=== PATIENT | female | born 1945 | race Caucasian/White ===

== ENCOUNTER → 2017-09-03 13:12 | Outpatient (CLI) | payer MEDICARE, OTHER, SELFPAY ==
--- NOTE | 2017-09-03 | DI.US.S_ITS ---
ULTRASOUND OF LEFT BREAST: 09/03/2017 CLINICAL: Diffuse left breast pain. Comparison is made to exams dated: 03/16/2017 mammogram, 04/13/2015 mammogram, 09/27/2014 mammogram, and 03/27/2014 mammogram - [facility]. Color flow ultrasound of the left breast was performed. Stevens scale images of the real-time examination were reviewed. IMPRESSION: NEGATIVE There is no sonographic evidence of malignancy. There is no abnormality seen in the left breast to correspond with the area of clinical concern, however, clinical followup is recommended. A 1 year screening mammogram is recommended. This exam was interpreted at Station ID: [id number]. Electronically Signed By: Sivakumar [place]:09/03/2017 20:59:40 letter sent: Clinical Evaluation Ultrasound BI-RADS: 1 Negative
== END ==
PROVIDERS: Family Provider Physician Assistant; PCP Physician Assistant; Visit Provider Physician Assistant
DX: N64.4 Mastodynia (principal)
CPT/HCPCS: 76642

== ENCOUNTER → 2018-05-28 10:00 | Outpatient (CLI) | payer MEDICARE, OTHER, SELFPAY ==
--- NOTE | 2018-05-28 | DI.RAD.S_ITS ---
PROCEDURE: XR HIP W PEL IF DONE RT 2V INDICATIONS: PAIN IN RIGHT HIP TECHNIQUE: AP pelvis with lateral view(s) of the right hip(s). COMPARISON: None. FINDINGS: Bones: No fractures or dislocations. Pelvic ring appears intact. No suspicious bony lesions. Moderate degeneration with subchondral cystic changes. There is mild left hip degeneration. Lower lumbar spondylosis. Degenerative sclerosis at the sacroiliac joints and pubic symphysis. Prominent left-sided paraspinal osteophyte at the L5-S1 level. Soft tissues: The visualized bowel gas pattern is normal. No suspicious soft tissue calcifications. 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 Dictated by: Sky Solis M.D. on 05/28/2018 at 10:45 Approved by: Sky Solis M.D. on 05/28/2018 at 11:03
== END ==
PROVIDERS: PCP Physician Assistant; Visit Provider Physician Assistant
DX: M25.551 Pain in right hip (principal); M16.0 Bilateral primary osteoarthritis of hip
CPT/HCPCS: 73502

== ENCOUNTER 2018-06-24 08:15 | Outpatient (RCR) | payer MEDICARE, OTHER, SELFPAY ==
--- NOTE | 2018-05-06 15:50 | PT.OIE ---
Current Diagnoses Sciatica, right side (05/04/18) Muscle weakness (generalized) (05/04/18) Other symptoms and signs involving the musculoskeletal system (05/04/18) Other reduced mobility (05/04/18) Past Medical History (Last Updated 05/06/18 @ 15:50 by Michelle Angela PT) Diabetes (Acute) Provider Visit Care Team Role Provider Type Giselle Moreno PA-C Attending Provider Advanced Cloud Subject Matter Expert Primary Care Provider Specialty: Internal Medicine Address: [address] [place] [address], [facility] Email: Physical Therapy Initial Evaluation PT-OP-A Visit Information Start: 05/04/18 09:46 Freq: Status: Active Protocol: Document 05/04/18 09:49 LRN (Rec: 05/04/18 10:06 LRN [id number]) Out-Patient Physical Therapy Visit Information Visit Information Visit Type Initial Evaluation Visit Start Time 09:49 Visit Stop Time 10:37 Total Visit Minutes 48 Visit Number 1 Number of GARAGEMAN Visits 0 Evaluation Information Evaluation Date 05/04/18 PT-OP-B Current Condition Start: 05/04/18 09:46 Freq: Status: Active Protocol: Document 05/04/18 09:49 LRN (Rec: 05/04/18 10:06 LRN [id number]) Current Condition History of Current Condition Onset Date 02/22/2018 Current Complaints Deep R postrerio hip pain. R front lower leg pain most History of Current Condition Insidious onset of R Sciatic pain. Hip pain is with standing, the first few steps are shooting pain down the lateral side of the thigh into the front of the lower leg. Deep ache in the R posterior hip. She reports having trouble sleeping, taking GABAPENTIN that she finds helpful. She is waking ~2 times at night and is used to walking 3-4 miles/day, but now only walks a couple miles/day (with her dog). Prior Treatments and Tests None. Treatment Goals Patient/Caregiver Goals Goal is no pain. Prior Functional Status Baseline Function- ADL's Independent Baseline Function- Mobility Independent Baseline Function- Gait Walked 2-3 miles daily. 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 Getting up/down from floor. Functional Limitations- Mobility/Gait Initial step from prolonged positioning is painful. 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 Therapy/Recovery PT-OP-F Manual Assessment Start: 05/04/18 09:46 Freq: Status: Active Protocol: Document 05/04/18 09:49 LRN (Rec: 05/06/18 15:19 LRN [id number]) Manual Assessments Joint Mobility Assessment Joint Mobility Assessment R innominate posteriorly rotated with inflare. PT-OP-H Neuro Start: 05/04/18 09:46 Freq: Status: Active Protocol: Document 05/04/18 09:49 LRN (Rec: 05/06/18 15:19 LRN [id number]) Sensation Evaluation Gross Sensation Gross Sensation WNL Comments Summary Comments Pt reported the past couple days her toes have felt like they have cotton around them. Deep Tendon Reflex & Clonus Assessment Deep Tendon Reflex Bilateral Achilles Deep Tendon Reflex 1+ Diminished Bilateral Patellar Deep Tendon Reflex 2+ Normal PT-OP-J Posture/Palpation/Skin Start: 05/04/18 09:46 Freq: Status: Active Protocol: Document 05/04/18 09:49 LRN (Rec: 05/06/18 15:19 LRN [id number]) Posture Evaluation Comments Posture Comments Posture in standing: Forward head, R shoulder is high, Thoracic spine has mild C- curve with apex on right, L/S is tilted left, R Iliac crest is high, R SIJ is deep, flattened plantar arches, increased lordosis. Palpation Assessment Location R SIJ Palpation Location R SIJ Palpation Findings Tenderness Palpation Details Deep in standing. PT-OP-K Range of Motion Start: 05/04/18 09:46 Freq: Status: Active Protocol: Document 05/04/18 09:49 LRN (Rec: 05/06/18 15:19 LRN [id number]) Lumbar Spine Range of Motion Lumbar Spine Active Degrees Testing Position Standing Flexion 75 Extension 5 Lateral Flexion Left 15 Lateral Flexion Right 10 ROM Limitations Soft Tissue Tightness Hip Goniometric Range of Motion Hip Measured in Degrees Right Passive Testing Position Supine Straight Leg Raise 95 Extension 0 Internal Rotation 10 External Rotation 65 Left Passive Testing Position Supine Straight Leg Raise 90 Extension 0 Internal Rotation 25 External Rotation 85 PT-OP-L Special Tests Start: 05/04/18 09:46 Freq: Status: Active Protocol: Document 05/04/18 09:49 LRN (Rec: 05/06/18 15:19 LRN [id number]) Special Tests Hip Special Tests STACIA Test Results Postive Right Hip PT-OP-M Strength Start: 05/04/18 09:46 Freq: Status: Active Protocol: Document 05/04/18 09:49 LRN (Rec: 05/06/18 15:19 LRN [id number]) Hip Strength Hip Manual Muscle Testing Right Flexion (L2) 3+ Fair+ Extension (S1) 3 Fair Abduction 5 Normal Adduction 3 Fair External Rotation 3+ Fair+ Internal Rotation 5 Normal Left Flexion (L2) 5 Normal Extension (S1) 3 Fair Abduction 5 Normal Adduction 5 Normal External Rotation 5 Normal Internal Rotation 5 Normal PT-OP-Q Treatments Start: 05/04/18 09:46 Freq: Status: Active Protocol: Document 05/04/18 09:49 LRN (Rec: 05/06/18 15:48 LRN [id number]) Manual Therapy Treatment Joint Mobilizations SIJ Joint R SIJ Direction Correcting a posteriorly rotated R innominate Body Position Supine Comments Contract/Relax PT-OP-T Assessment and Plan Start: 05/04/18 09:46 Freq: Status: Active Protocol: Document 05/04/18 09:49 LRN (Rec: 05/04/18 10:06 LRN [id number]) Physical Therapy Assessment Rehab Potential Rehabilitation Potential Excellent Evaluation Complexity Number of Personal Factors/Comorbidities 1-2 Number of Body Systems Impaired 3 Clinical Presentation at Evaluation Evolving Impairments Impairments Activity Tolerance Functional Activities Functional Mobility Gait Pain Posture ROM Strength Other Concerns Age Related Concerns 65+ years old 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 Goals Four Impairment Asymmetry of pelvis and decreased R hip mobility interrupting sleep Public Policy Manager Goal (LTG) Pt will be able to sleep through the night without onset of R hip pain. LTG Duration 07/02/18 Three Impairment Decreased R hip strength [facility]ci Goal (LTG) Pt will be able to resume walking 2 miles/day for her diabetic health care. LTG Duration 07/02/18 Two Impairment R Sciatic Pain with first step rated 7/10 Short Term Goal (STG) Decrease pain onset with gait 50% STG Duration 06/01/18 Public Policy Manager Goal (LTG) Pt will be able to walk without pain onset. LTG Duration 07/02/18 One Impairment Lacks self care HEP Public Policy Manager Goal (LTG) Pt will be independent with a self care HEP. LTG Duration 07/02/18 Assessment Summary Assessment Pt presents with R sciatic pain due to obliquity of the R innominate in posterior rotation with inflare. She has a mechanical dysfunction of decreased R hip mobility and tolerance to positioning. She has a soft tissue dysfunction of the pelvis and LE's with decreased LE strength and postural changes of the pelvis and spine. The pt will benefit from skilled physical therapy to improve posture and sleep quality, improve hip mechanics, strength and mobility for ability to ambulate safely without pain and to resume her exercise program for her diabetic health. Physical Therapy Plan Frequency and Duration Plan of Care Start Date 05/04/18 Plan of Care End Date 07/02/18 Therapeutic Interventions Therapeutic Interventions Balance Training Coordination Training Gait Training Home Exercise Program Joint Mobilizations Manual Therapy Neuromuscular Re-education Patient/Caregiver Education Self-Care/Home Management Soft Tissue Mobilization Taping Therapeutic Activities Therapeutic Exercises Modalities Cold Pack/Ice Massage Electric Stimulation Hot Packs Ultrasound Next Visit Focus/Plan Next Note Type Treatment Note Next Visit Plan JMT to correct a posteriorly rotated R innominate if needed , start pelvic/core stabilization and progress HEP as appropriate. Modalities as needed for pain management.
--- NOTE | 2018-05-06 15:51 | PT.OPPOC ---
Current Diagnoses Sciatica, right side (05/04/18) Muscle weakness (generalized) (05/04/18) Other symptoms and signs involving the musculoskeletal system (05/04/18) Other reduced mobility (05/04/18) Provider Visit Care Team Role Provider Type Giselle Moreno PA-C Attending Provider Advanced Contracting Support Specialist Primary Care Provider Specialty: Internal Medicine Address: [address] [place] [address], [facility] Email: Plan Of Care PT-OP-T Assessment and Plan Start: 05/04/18 09:46 Freq: Status: Active Protocol: Document 05/04/18 09:49 LRN (Rec: 05/04/18 10:06 LRN [id number]) Physical Therapy Assessment Rehab Potential Rehabilitation Potential Excellent Evaluation Complexity Number of Personal Factors/Comorbidities 1-2 Number of Body Systems Impaired 3 Clinical Presentation at Evaluation Evolving Impairments Impairments Activity Tolerance Functional Activities Functional Mobility Gait Pain Posture ROM Strength Other Concerns Age Related Concerns 65+ years old 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 Goals Four Impairment Asymmetry of pelvis and decreased R hip mobility interrupting sleep Care Home Goal (LTG) Pt will be able to sleep through the night without onset of R hip pain. LTG Duration 07/02/18 Three Impairment Decreased R hip strength Towel Distributor Goal (LTG) Pt will be able to resume walking 2 miles/day for her diabetic health care. LTG Duration 07/02/18 Two Impairment R Sciatic Pain with first step rated 7/10 Short Term Goal (STG) Decrease pain onset with gait 50% STG Duration 06/01/18 Towel Distributor Goal (LTG) Pt will be able to walk without pain onset. LTG Duration 07/02/18 One Impairment Lacks self care HEP Care Home Goal (LTG) Pt will be independent with a self care HEP. LTG Duration 07/02/18 Assessment Summary Assessment Pt presents with R sciatic pain due to obliquity of the R innominate in posterior rotation with inflare. She has a mechanical dysfunction of decreased R hip mobility and tolerance to positioning. She has a soft tissue dysfunction of the pelvis and LE's with decreased LE strength and postural changes of the pelvis and spine. The pt will benefit from skilled physical therapy to improve posture and sleep quality, improve hip mechanics, strength and mobility for ability to ambulate safely without pain and to resume her exercise program for her diabetic health. Physical Therapy Plan Frequency and Duration Plan of Care Start Date 05/04/18 Plan of Care End Date 07/02/18 Therapeutic Interventions Therapeutic Interventions Balance Training Coordination Training Gait Training Home Exercise Program Joint Mobilizations Manual Therapy Neuromuscular Re-education Patient/Caregiver Education Self-Care/Home Management Soft Tissue Mobilization Taping Therapeutic Activities Therapeutic Exercises Modalities Cold Pack/Ice Massage Electric Stimulation Hot Packs Ultrasound Next Visit Focus/Plan Next Note Type Treatment Note Next Visit Plan JMT to correct a posteriorly rotated R innominate if needed , start pelvic/core stabilization and progress HEP as appropriate. Modalities as needed for pain management. Plan of Care Dates Plan of Care Start Date 05/04/18 Plan of Care End Date 07/02/18 Please Sign and Return: I have reviewed this Plan of Care and certify that the skilled therapy services above are required to meet the patient?s needs. Physician Signature Date Printed Name and Credentials Clinical Instructor Signature Printed Name and Credentials
--- NOTE | 2018-05-07 10:04 | PT.OTN ---
Current Diagnoses Sciatica, right side (05/07/18) Physical Therapy Treatment Note PT-OP-A Visit Information Start: 05/04/18 09:46 Freq: Status: Active Protocol: Document 05/07/18 09:02 LRN (Rec: 05/07/18 10:02 LRN [id number]) Out-Patient Physical Therapy Visit Information Visit Information Visit Type Initial Evaluation Visit Start Time 09:02 Visit Stop Time 09:49 Total Visit Minutes 47 Visit Number 1 Number of BLUEPRINT DUPLICATOR Visits 0 Evaluation Information Evaluation Date 05/04/18 PT-OP-B Current Condition Start: 05/04/18 09:46 Freq: Status: Active Protocol: Document 05/04/18 09:49 LRN (Rec: 05/04/18 10:06 LRN [id number]) Current Condition History of Current Condition Onset Date 02/22/2018 Current Complaints Deep R postrerio hip pain. R front lower leg pain most History of Current Condition Insidious onset of R Sciatic pain. Hip pain is with standing, the first few steps are shooting pain down the lateral side of the thigh into the front of the lower leg. Deep ache in the R posterior hip. She reports having trouble sleeping, taking GABAPENTIN that she finds helpful. She is waking ~2 times at night and is used to walking 3-4 miles/day, but now only walks a couple miles/day (with her dog). Prior Treatments and Tests None. Treatment Goals Patient/Caregiver Goals Goal is no pain. Prior Functional Status Baseline Function- ADL's Independent Baseline Function- Mobility Independent Baseline Function- Gait Walked 2-3 miles daily. 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 Getting up/down from floor. Functional Limitations- Mobility/Gait Initial step from prolonged positioning is painful. 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 Mentor better after last session, loosened up. Mentor something in the R lateral thigh with sit to stand just now. Can feel it, not inhibits. States she was able to sleep through the night once, but next day had a horrible night. PT-OP-F Manual Assessment Start: 05/04/18 09:46 Freq: Status: Active Protocol: Document 05/04/18 09:49 LRN (Rec: 05/06/18 15:19 LRN [id number]) Manual Assessments Joint Mobility Assessment Joint Mobility Assessment R innominate posteriorly rotated with inflare. PT-OP-H Neuro Start: 05/04/18 09:46 Freq: Status: Active Protocol: Document 05/04/18 09:49 LRN (Rec: 05/06/18 15:19 LRN [id number]) Sensation Evaluation Gross Sensation Gross Sensation WNL Comments Summary Comments Pt reported the past couple days her toes have felt like they have cotton around them. Deep Tendon Reflex & Clonus Assessment Deep Tendon Reflex Bilateral Achilles Deep Tendon Reflex 1+ Diminished Bilateral Patellar Deep Tendon Reflex 2+ Normal PT-OP-J Posture/Palpation/Skin Start: 05/04/18 09:46 Freq: Status: Active Protocol: Document 05/04/18 09:49 LRN (Rec: 05/06/18 15:19 LRN [id number]) Posture Evaluation Comments Posture Comments Posture in standing: Forward head, R shoulder is high, Thoracic spine has mild C- curve with apex on right, L/S is tilted left, R Iliac crest is high, R SIJ is deep, flattened plantar arches, increased lordosis. Palpation Assessment Location R SIJ Palpation Location R SIJ Palpation Findings Tenderness Palpation Details Deep in standing. PT-OP-K Range of Motion Start: 05/04/18 09:46 Freq: Status: Active Protocol: Document 05/04/18 09:49 LRN (Rec: 05/06/18 15:19 LRN [id number]) Lumbar Spine Range of Motion Lumbar Spine Active Degrees Testing Position Standing Flexion 75 Extension 5 Lateral Flexion Left 15 Lateral Flexion Right 10 ROM Limitations Soft Tissue Tightness Hip Goniometric Range of Motion Hip Measured in Degrees Right Passive Testing Position Supine Straight Leg Raise 95 Extension 0 Internal Rotation 10 External Rotation 65 Left Passive Testing Position Supine Straight Leg Raise 90 Extension 0 Internal Rotation 25 External Rotation 85 PT-OP-L Special Tests Start: 05/04/18 09:46 Freq: Status: Active Protocol: Document 05/04/18 09:49 LRN (Rec: 05/06/18 15:19 LRN [id number]) Special Tests Hip Special Tests STACIA Test Results Postive Right Hip PT-OP-M Strength Start: 05/04/18 09:46 Freq: Status: Active Protocol: Document 05/04/18 09:49 LRN (Rec: 05/06/18 15:19 LRN [id number]) Hip Strength Hip Manual Muscle Testing Right Flexion (L2) 3+ Fair+ Extension (S1) 3 Fair Abduction 5 Normal Adduction 3 Fair External Rotation 3+ Fair+ Internal Rotation 5 Normal Left Flexion (L2) 5 Normal Extension (S1) 3 Fair Abduction 5 Normal Adduction 5 Normal External Rotation 5 Normal Internal Rotation 5 Normal PT-OP-Q Treatments Start: 05/04/18 09:46 Freq: Status: Active Protocol: Document 05/07/18 09:02 LRN (Rec: 05/07/18 10:02 LRN [id number]) Therapeutic Exercises Supine Exercises Fig 4 Stretch Side right Reps/Minutes 3' BKFO with T-Band Side bilateral Resistance Lev 2 T-Band Reps/Minutes 20 x Comments Making sure symmetrical movement Bridges Side bilateral Reps/Minutes 15x, holding 5 sec Sitting Exercises Ankle EV stretch Side right Reps/Minutes 3' Manual Therapy Treatment Soft Tissue Mobilization R lateral hip Mobilization Type Cross-Friction Trigger Point Release Intensity/Depth Moderate Body Position Sidelying Comments Good release of active trigger points. Self-Care/Home Management Treatment Education Patient Education Body Mechanics Home Exercise Program Activities Self-Care/Home Management Activities Proper body mechanics as related to her working. HEP: Bridging, BKFO w/T-Band, Ankle EV stretch, Fig 4 stretch PT-OP-T Assessment and Plan Start: 05/04/18 09:46 Freq: Status: Active Protocol: Document 05/07/18 09:02 LRN (Rec: 05/07/18 10:02 LRN [id number]) Physical Therapy Assessment Progress Towards Goals Progress Towards Goals Progressing Toward Goals Progress Comments Goal #1: Progressing HEP. Goal #2: No change with walking R hip pain. Goal #3: Pt able to sleep through the night x 1. Assessment Summary Assessment Decreased R sciatic pain. No obliquity of the R innominate present today. She has a mechanical dysfunction of decreased R hip mobility and tolerance to positioning. Decr in soft tissue dysfunction of the lateral hip after STM. Further stabilization/strengthening of the pelvis and LE's is needed due to L. long leg length discrepancy. Physical Therapy Plan Frequency and Duration Frequency of Treatment 2x/Week Plan of Care Start Date 05/04/18 Plan of Care End Date 07/02/18 Next Visit Focus/Plan Next Note Type Treatment Note Next Visit Plan JMT to correct a posteriorly rotated R innominate if needed , start pelvic/core stabilization and progress HEP as appropriate. STM, Modalities as needed for pain management.
--- NOTE | 2018-05-10 13:57 | PT.OTN ---
Current Diagnoses Sciatica, right side (05/10/18) Physical Therapy Treatment Note PT-OP-A Visit Information Start: 05/04/18 09:46 Freq: Status: Active Protocol: Document 05/10/18 12:53 LRN (Rec: 05/10/18 13:56 LRN [id number]) Out-Patient Physical Therapy Visit Information Visit Information Visit Type Treatment Note Visit Start Time 12:53 Visit Stop Time 13:38 Total Visit Minutes 45 Visit Number 3 Number of SPA ASSISTANT MANAGER Visits 0 Evaluation Information Evaluation Date 05/04/18 PT-OP-B Current Condition Start: 05/04/18 09:46 Freq: Status: Active Protocol: Document 05/04/18 09:49 LRN (Rec: 05/04/18 10:06 LRN [id number]) Current Condition History of Current Condition Onset Date 02/22/2018 Current Complaints Deep R postrerio hip pain. R front lower leg pain most History of Current Condition Insidious onset of R Sciatic pain. Hip pain is with standing, the first few steps are shooting pain down the lateral side of the thigh into the front of the lower leg. Deep ache in the R posterior hip. She reports having trouble sleeping, taking GABAPENTIN that she finds helpful. She is waking ~2 times at night and is used to walking 3-4 miles/day, but now only walks a couple miles/day (with her dog). Prior Treatments and Tests None. Treatment Goals Patient/Caregiver Goals Goal is no pain. Prior Functional Status Baseline Function- ADL's Independent Baseline Function- Mobility Independent Baseline Function- Gait Walked 2-3 miles daily. 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 Getting up/down from floor. Functional Limitations- Mobility/Gait Initial step from prolonged positioning is painful. 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 Therapy/Recovery PT-OP-C Subjective Start: 05/04/18 09:46 Freq: Status: Active Protocol: Document 05/10/18 12:53 LRN (Rec: 05/10/18 13:56 LRN [id number]) OP-PT Subjective Patient Comments Patient Comments 2 nights of good sleep, slept through the night. R Hip pain is no longer sharp, it aches and feels like a bruise. Today aches, no pain. Patient Reported Progress Improving PT-OP-F Manual Assessment Start: 05/04/18 09:46 Freq: Status: Active Protocol: Document 05/04/18 09:49 LRN (Rec: 05/06/18 15:19 LRN [id number]) Manual Assessments Joint Mobility Assessment Joint Mobility Assessment R innominate posteriorly rotated with inflare. PT-OP-H Neuro Start: 05/04/18 09:46 Freq: Status: Active Protocol: Document 05/04/18 09:49 LRN (Rec: 05/06/18 15:19 LRN [id number]) Sensation Evaluation Gross Sensation Gross Sensation WNL Comments Summary Comments Pt reported the past couple days her toes have felt like they have cotton around them. Deep Tendon Reflex & Clonus Assessment Deep Tendon Reflex Bilateral Achilles Deep Tendon Reflex 1+ Diminished Bilateral Patellar Deep Tendon Reflex 2+ Normal PT-OP-J Posture/Palpation/Skin Start: 05/04/18 09:46 Freq: Status: Active Protocol: Document 05/04/18 09:49 LRN (Rec: 05/06/18 15:19 LRN [id number]) Posture Evaluation Comments Posture Comments Posture in standing: Forward head, R shoulder is high, Thoracic spine has mild C- curve with apex on right, L/S is tilted left, R Iliac crest is high, R SIJ is deep, flattened plantar arches, increased lordosis. Palpation Assessment Location R SIJ Palpation Location R SIJ Palpation Findings Tenderness Palpation Details Deep in standing. PT-OP-K Range of Motion Start: 05/04/18 09:46 Freq: Status: Active Protocol: Document 05/04/18 09:49 LRN (Rec: 05/06/18 15:19 LRN [id number]) Lumbar Spine Range of Motion Lumbar Spine Active Degrees Testing Position Standing Flexion 75 Extension 5 Lateral Flexion Left 15 Lateral Flexion Right 10 ROM Limitations Soft Tissue Tightness Hip Goniometric Range of Motion Hip Measured in Degrees Right Passive Testing Position Supine Straight Leg Raise 95 Extension 0 Internal Rotation 10 External Rotation 65 Left Passive Testing Position Supine Straight Leg Raise 90 Extension 0 Internal Rotation 25 External Rotation 85 PT-OP-L Special Tests Start: 05/04/18 09:46 Freq: Status: Active Protocol: Document 05/04/18 09:49 LRN (Rec: 05/06/18 15:19 LRN [id number]) Special Tests Hip Special Tests STACIA Test Results Postive Right Hip PT-OP-M Strength Start: 05/04/18 09:46 Freq: Status: Active Protocol: Document 05/04/18 09:49 LRN (Rec: 05/06/18 15:19 LRN [id number]) Hip Strength Hip Manual Muscle Testing Right Flexion (L2) 3+ Fair+ Extension (S1) 3 Fair Abduction 5 Normal Adduction 3 Fair External Rotation 3+ Fair+ Internal Rotation 5 Normal Left Flexion (L2) 5 Normal Extension (S1) 3 Fair Abduction 5 Normal Adduction 5 Normal External Rotation 5 Normal Internal Rotation 5 Normal PT-OP-Q Treatments Start: 05/04/18 09:46 Freq: Status: Active Protocol: Document 05/10/18 12:53 LRN (Rec: 05/10/18 13:56 LRN [id number]) Therapeutic Exercises Supine Exercises DLS Supine Exercise Name Neutral spine training, Alternate arm lifts, Paul arm lifts, paul heel slides Reps/Minutes 10' Comments 3-10 reps each after training Fig 4 Stretch Supine Exercise Name Stretch f/b active stretch Side bilateral Reps/Minutes 3' BKFO with T-Band Side bilateral Resistance Lev 2 T-Band Reps/Minutes 30 x Comments Folded towel x1 under R foot. Making sure symmetrical movement. Bridges Side bilateral Reps/Minutes 15x2 Comments Folded towel x 1 under R foot Manual Therapy Treatment Soft Tissue Mobilization R lateral hip Body Location Gluteals, Piriformis Mobilization Type Cross-Friction Strumming Intensity/Depth Moderate Body Position Sidelying Comments Good release of active trigger points. Joint Mobilizations Sacral Direction Correcting a R rotated sacrum Body Position Prone Comments MFR Self-Care/Home Management Treatment Education Patient Education Home Exercise Program Activities Self-Care/Home Management Activities Issued an reviewed HEP: DLS alternate arm lifts, bilateral arm lifts, paul Heel slides, bridging. Pt I/S to perform previously given ex's with DLS . PT-OP-T Assessment and Plan Start: 05/04/18 09:46 Freq: Status: Active Protocol: Document 05/10/18 12:53 LRN (Rec: 05/10/18 13:56 LRN [id number]) Physical Therapy Assessment Goals Four Impairment Asymmetry of pelvis and decreased R hip mobility interrupting sleep Marketing Performance Analyst Goal (LTG) Pt will be able to sleep through the night without onset of R hip pain. LTG Duration 07/02/18 (05/10/18: Goal Met for 2 days) Three Impairment Decreased R hip strength Alf Goal (LTG) Pt will be able to resume walking 2 miles/day for her diabetic health care. LTG Duration 07/02/18 Two Impairment R Sciatic Pain with first step rated 7/10 Short Term Goal (STG) Decrease pain onset with gait 50% STG Duration 06/01/18 Marketing Performance Analyst Goal (LTG) Pt will be able to walk without pain onset. LTG Duration 07/02/18 One Impairment Lacks self care HEP Alf Goal (LTG) Pt will be independent with a self care HEP. LTG Duration 07/02/18 (05/10/18: Progressing) Progress Towards Goals Progress Towards Goals Progressing Toward Goals Progress Comments Goal #1: Progressing HEP. Goal #2: Change with type of walking R hip pain. Pain on initial standing and the first few steps is not as painful, not sharp. Goal #3: Progressing with hips strength, no change with ability to return to walking program. Goal #4: Pt able to sleep through the night x 2. Assessment Summary Assessment Improved sleep ability at night. No obliquity of the R innominate present today and core stability is improving. No pain on initial standing immediately after therapy. She has a mechanical dysfunction of decreased R hip mobility and tolerance to positioning. Decr in soft tissue dysfunction of the lateral hip after STM. Further stabilization/ strengthening of the pelvis and LE's is needed due to L. long leg length discrepancy. Physical Therapy Plan Frequency and Duration Frequency of Treatment 2x/Week Plan of Care Start Date 05/04/18 Plan of Care End Date 07/02/18 Next Visit Focus/Plan Next Note Type Treatment Note Next Visit Plan JMT to correct a posteriorly rotated R innominate as needed , progress pelvic/core stabilization and HEP as appropriate. STM, Modalities as needed for pain management.
--- NOTE | 2018-05-10 14:06 | PT.OTN ---
Current Diagnoses Sciatica, right side (05/10/18) Physical Therapy Treatment Note PT-OP-A Visit Information Start: 05/04/18 09:46 Freq: Status: Active Protocol: Document 05/10/18 12:53 LRN (Rec: 05/10/18 13:56 LRN [id number]) Out-Patient Physical Therapy Visit Information Visit Information Visit Type Treatment Note Visit Start Time 12:53 Visit Stop Time 13:38 Total Visit Minutes 45 Visit Number 3 Number of DIRECTOR PROCESS IMPROVEMENT Visits 0 Evaluation Information Evaluation Date 05/04/18 PT-OP-B Current Condition Start: 05/04/18 09:46 Freq: Status: Active Protocol: Document 05/04/18 09:49 LRN (Rec: 05/04/18 10:06 LRN [id number]) Current Condition History of Current Condition Onset Date 02/22/2018 Current Complaints Deep R postrerio hip pain. R front lower leg pain most History of Current Condition Insidious onset of R Sciatic pain. Hip pain is with standing, the first few steps are shooting pain down the lateral side of the thigh into the front of the lower leg. Deep ache in the R posterior hip. She reports having trouble sleeping, taking GABAPENTIN that she finds helpful. She is waking ~2 times at night and is used to walking 3-4 miles/day, but now only walks a couple miles/day (with her dog). Prior Treatments and Tests None. Treatment Goals Patient/Caregiver Goals Goal is no pain. Prior Functional Status Baseline Function- ADL's Independent Baseline Function- Mobility Independent Baseline Function- Gait Walked 2-3 miles daily. 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 Getting up/down from floor. Functional Limitations- Mobility/Gait Initial step from prolonged positioning is painful. 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 R Hip pain is no longer sharp, it aches and feels like a bruise. Today aches, no pain. Patient Reported Progress Improving Patient Questionnaires Oswestry Low Back Index Oswestry Score 22 Oswestry Impairment 20 to 39% Impaired (Score 20- 39) PT-OP-F Manual Assessment Start: 05/04/18 09:46 Freq: Status: Active Protocol: Document 05/04/18 09:49 LRN (Rec: 05/06/18 15:19 LRN [id number]) Manual Assessments Joint Mobility Assessment Joint Mobility Assessment R innominate posteriorly rotated with inflare. PT-OP-H Neuro Start: 05/04/18 09:46 Freq: Status: Active Protocol: Document 05/04/18 09:49 LRN (Rec: 05/06/18 15:19 LRN [id number]) Sensation Evaluation Gross Sensation Gross Sensation WNL Comments Summary Comments Pt reported the past couple days her toes have felt like they have cotton around them. Deep Tendon Reflex & Clonus Assessment Deep Tendon Reflex Bilateral Achilles Deep Tendon Reflex 1+ Diminished Bilateral Patellar Deep Tendon Reflex 2+ Normal PT-OP-J Posture/Palpation/Skin Start: 05/04/18 09:46 Freq: Status: Active Protocol: Document 05/04/18 09:49 LRN (Rec: 05/06/18 15:19 LRN [id number]) Posture Evaluation Comments Posture Comments Posture in standing: Forward head, R shoulder is high, Thoracic spine has mild C- curve with apex on right, L/S is tilted left, R Iliac crest is high, R SIJ is deep, flattened plantar arches, increased lordosis. Palpation Assessment Location R SIJ Palpation Location R SIJ Palpation Findings Tenderness Palpation Details Deep in standing. PT-OP-K Range of Motion Start: 05/04/18 09:46 Freq: Status: Active Protocol: Document 05/04/18 09:49 LRN (Rec: 05/06/18 15:19 LRN [id number]) Lumbar Spine Range of Motion Lumbar Spine Active Degrees Testing Position Standing Flexion 75 Extension 5 Lateral Flexion Left 15 Lateral Flexion Right 10 ROM Limitations Soft Tissue Tightness Hip Goniometric Range of Motion Hip Measured in Degrees Right Passive Testing Position Supine Straight Leg Raise 95 Extension 0 Internal Rotation 10 External Rotation 65 Left Passive Testing Position Supine Straight Leg Raise 90 Extension 0 Internal Rotation 25 External Rotation 85 PT-OP-L Special Tests Start: 02/05/19 09:46 Freq: Status: Active Protocol: Document 05/04/18 09:49 LRN (Rec: 05/06/18 15:19 LRN [id number]) Special Tests Hip Special Tests STACIA Test Results Postive Right Hip PT-OP-M Strength Start: 05/04/18 09:46 Freq: Status: Active Protocol: Document 05/04/18 09:49 LRN (Rec: 05/06/18 15:19 LRN [id number]) Hip Strength Hip Manual Muscle Testing Right Flexion (L2) 3+ Fair+ Extension (S1) 3 Fair Abduction 5 Normal Adduction 3 Fair External Rotation 3+ Fair+ Internal Rotation 5 Normal Left Flexion (L2) 5 Normal Extension (S1) 3 Fair Abduction 5 Normal Adduction 5 Normal External Rotation 5 Normal Internal Rotation 5 Normal PT-OP-Q Treatments Start: 05/04/18 09:46 Freq: Status: Active Protocol: Document 05/10/18 12:53 LRN (Rec: 05/10/18 13:56 LRN [id number]) Therapeutic Exercises Supine Exercises DLS Supine Exercise Name Neutral spine training, Alternate arm lifts, Paul arm lifts, paul heel slides Reps/Minutes 10' Comments 3-10 reps each after training Fig 4 Stretch Supine Exercise Name Stretch f/b active stretch Side bilateral Reps/Minutes 3' BKFO with T-Band Side bilateral Resistance Lev 2 T-Band Reps/Minutes 30 x Comments Folded towel x1 under R foot. Making sure symmetrical movement. Bridges Side bilateral Reps/Minutes 15x2 Comments Folded towel x 1 under R foot Manual Therapy Treatment Soft Tissue Mobilization R lateral hip Body Location Gluteals, Piriformis Mobilization Type Cross-Friction Strumming Intensity/Depth Moderate Body Position Sidelying Comments Good release of active trigger points. Joint Mobilizations Sacral Direction Correcting a R rotated sacrum Body Position Prone Comments MFR Self-Care/Home Management Treatment Education Patient Education Home Exercise Program Activities Self-Care/Home Management Activities Issued an reviewed HEP: DLS alternate arm lifts, bilateral arm lifts, paul Heel slides, bridging. Pt I/S to perform previously given ex's with DLS . PT-OP-T Assessment and Plan Start: 05/04/18 09:46 Freq: Status: Active Protocol: Document 05/10/18 12:53 LRN (Rec: 05/10/18 13:56 LRN [id number]) Physical Therapy Assessment Goals Four Impairment Asymmetry of pelvis and decreased R hip mobility interrupting sleep Arc Air Operator Goal (LTG) Pt will be able to sleep through the night without onset of R hip pain. LTG Duration 07/02/18 (05/10/18: Goal Met for 2 days) Three Impairment Decreased R hip strength Halfway Goal (LTG) Pt will be able to resume walking 2 miles/day for her diabetic health care. LTG Duration 07/02/18 Two Impairment R Sciatic Pain with first step rated 7/10 Short Term Goal (STG) Decrease pain onset with gait 50% STG Duration 06/01/18 Arc Air Operator Goal (LTG) Pt will be able to walk without pain onset. LTG Duration 07/02/18 One Impairment Lacks self care HEP Halfway Goal (LTG) Pt will be independent with a self care HEP. LTG Duration 07/02/18 (05/10/18: Progressing) Progress Towards Goals Progress Towards Goals Progressing Toward Goals Progress Comments Goal #1: Progressing HEP. Goal #2: Change with type of walking R hip pain. Pain on initial standing and the first few steps is not as painful, not sharp. Goal #3: Progressing with hips strength, no change with ability to return to walking program. Goal #4: Pt able to sleep through the night x 2. Assessment Summary Assessment Improved sleep ability at night. No obliquity of the R innominate present today and core stability is improving. No pain on initial standing immediately after therapy. She has a mechanical dysfunction of decreased R hip mobility and tolerance to positioning. Decr in soft tissue dysfunction of the lateral hip after STM. Further stabilization/ strengthening of the pelvis and LE's is needed due to L. long leg length discrepancy. GARY score of 22. Physical Therapy Plan Frequency and Duration Frequency of Treatment 2x/Week Plan of Care Start Date 05/04/18 Plan of Care End Date 07/02/18 Next Visit Focus/Plan Next Note Type Treatment Note Next Visit Plan JMT to correct a posteriorly rotated R innominate as needed , progress pelvic/core stabilization and HEP as appropriate. STM, Modalities as needed for pain management.
--- NOTE | 2018-05-13 09:24 | PT.OTN ---
Current Diagnoses Sciatica, right side (05/13/18) Physical Therapy Treatment Note PT-OP-A Visit Information Start: 05/04/18 09:46 Freq: Status: Active Protocol: Document 05/13/18 08:17 LRN (Rec: 05/13/18 09:21 LRN [id number]) Out-Patient Physical Therapy Visit Information Visit Information Visit Type Treatment Note Visit Start Time 08:17 Visit Stop Time 09:10 Total Visit Minutes 53 Visit Number 4 Number of [employer] AND REPAIRER Visits 0 Evaluation Information Evaluation Date 05/04/18 PT-OP-B Current Condition Start: 05/04/18 09:46 Freq: Status: Active Protocol: Document 05/04/18 09:49 LRN (Rec: 05/04/18 10:06 LRN [id number]) Current Condition History of Current Condition Onset Date 02/22/2018 Current Complaints Deep R postrerio hip pain. R front lower leg pain most History of Current Condition Insidious onset of R Sciatic pain. Hip pain is with standing, the first few steps are shooting pain down the lateral side of the thigh into the front of the lower leg. Deep ache in the R posterior hip. She reports having trouble sleeping, taking GABAPENTIN that she finds helpful. She is waking ~2 times at night and is used to walking 3-4 miles/day, but now only walks a couple miles/day (with her dog). Prior Treatments and Tests None. Treatment Goals Patient/Caregiver Goals Goal is no pain. Prior Functional Status Baseline Function- ADL's Independent Baseline Function- Mobility Independent Baseline Function- Gait Walked 2-3 miles daily. 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 Getting up/down from floor. Functional Limitations- Mobility/Gait Initial step from prolonged positioning is painful. 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 Therapy/Recovery PT-OP-C Subjective Start: 05/04/18 09:46 Freq: Status: Active Protocol: Document 05/13/18 08:17 LRN (Rec: 05/13/18 09:21 LRN [id number]) OP-PT Subjective Patient Comments Patient Comments Pain relief was all day after last treatment, had pain the next day. Not sure when the pain onset began. Today having pain in the hip and a little into the lateral thigh. Sweeping yesterday. Patient Questionnaires Oswestry Low Back Index Oswestry Score 22 Oswestry Impairment 20 to 39% Impaired (Score 20- 39) PT-OP-F Manual Assessment Start: 05/04/18 09:46 Freq: Status: Active Protocol: Document 05/04/18 09:49 LRN (Rec: 05/06/18 15:19 LRN [id number]) Manual Assessments Joint Mobility Assessment Joint Mobility Assessment R innominate posteriorly rotated with inflare. PT-OP-H Neuro Start: 05/04/18 09:46 Freq: Status: Active Protocol: Document 05/04/18 09:49 LRN (Rec: 05/06/18 15:19 LRN [id number]) Sensation Evaluation Gross Sensation Gross Sensation WNL Comments Summary Comments Pt reported the past couple days her toes have felt like they have cotton around them. Deep Tendon Reflex & Clonus Assessment Deep Tendon Reflex Bilateral Achilles Deep Tendon Reflex 1+ Diminished Bilateral Patellar Deep Tendon Reflex 2+ Normal PT-OP-J Posture/Palpation/Skin Start: 05/04/18 09:46 Freq: Status: Active Protocol: Document 05/04/18 09:49 LRN (Rec: 05/06/18 15:19 LRN [id number]) Posture Evaluation Comments Posture Comments Posture in standing: Forward head, R shoulder is high, Thoracic spine has mild C- curve with apex on right, L/S is tilted left, R Iliac crest is high, R SIJ is deep, flattened plantar arches, increased lordosis. Palpation Assessment Location R SIJ Palpation Location R SIJ Palpation Findings Tenderness Palpation Details Deep in standing. PT-OP-K Range of Motion Start: 05/04/18 09:46 Freq: Status: Active Protocol: Document 05/04/18 09:49 LRN (Rec: 05/06/18 15:19 LRN [id number]) Lumbar Spine Range of Motion Lumbar Spine Active Degrees Testing Position Standing Flexion 75 Extension 5 Lateral Flexion Left 15 Lateral Flexion Right 10 ROM Limitations Soft Tissue Tightness Hip Goniometric Range of Motion Hip Measured in Degrees Right Passive Testing Position Supine Straight Leg Raise 95 Extension 0 Internal Rotation 10 External Rotation 65 Left Passive Testing Position Supine Straight Leg Raise 90 Extension 0 Internal Rotation 25 External Rotation 85 PT-OP-L Special Tests Start: 05/04/18 09:46 Freq: Status: Active Protocol: Document 05/04/18 09:49 LRN (Rec: 05/06/18 15:19 LRN [id number]) Special Tests Hip Special Tests STACIA Test Results Postive Right Hip PT-OP-M Strength Start: 05/04/18 09:46 Freq: Status: Active Protocol: Document 05/04/18 09:49 LRN (Rec: 05/06/18 15:19 LRN [id number]) Hip Strength Hip Manual Muscle Testing Right Flexion (L2) 3+ Fair+ Extension (S1) 3 Fair Abduction 5 Normal Adduction 3 Fair External Rotation 3+ Fair+ Internal Rotation 5 Normal Left Flexion (L2) 5 Normal Extension (S1) 3 Fair Abduction 5 Normal Adduction 5 Normal External Rotation 5 Normal Internal Rotation 5 Normal PT-OP-Q Treatments Start: 05/04/18 09:46 Freq: Status: Active Protocol: Document 05/13/18 08:17 LRN (Rec: 05/13/18 09:21 LRN [id number]) Therapeutic Exercises Supine Exercises LE Roll in/out Supine Exercise Name Roll in/outs with Deep breathing Reps/Minutes 10x DLS Supine Exercise Name Neutral spine training, Alternate arm lifts, Paul arm lifts, paul heel slides Reps/Minutes 15 BKFO with T-Band Side bilateral Resistance Lev 2 T-Band Reps/Minutes 30 x Comments Folded towel x1 under R foot. Making sure symmetrical movement. Bridges Side bilateral Reps/Minutes 15x2 Comments Folded towel x 1 under R foot Manual Therapy Treatment Soft Tissue Mobilization R hip AD's Body Location Hip AD's Mobilization Type Trigger Point Release Body Position Supine Comments Superficial to deep. Joint Mobilizations SIJ Joint R SIJ Direction Correcting an outflared R innominate Body Position Supine Comments Contract/Relax Self-Care/Home Management Treatment Education Patient Education Body Mechanics Home Exercise Program Activities Self-Care/Home Management Activities Issue and reviewed LE Roll in/ out exercise. I/S pt in proper sitting ( equally on Ischial Tuberosity' s). Standing with equal weightbearing. Body mechanics training for sweeping. PT-OP-R Modalities Start: 05/04/18 09:46 Freq: Status: Active Protocol: Document 05/13/18 08:17 LRN (Rec: 05/13/18 09:21 LRN [id number]) Ultrasound Therapy Treatment R upper Glut & Greater Trochanter Treatment Duration (minutes) 8 Patient Position Supine Coupling Medium Ultrasound Gel Applicator Size (cm2) 2 Frequency Setting (mHz) 1 Mode Setting Continuous Duty Cycle 100% Intensity Setting (w/cm2) 1.5 PT-OP-T Assessment and Plan Start: 05/04/18 09:46 Freq: Status: Active Protocol: Document 05/13/18 08:17 LRN (Rec: 05/13/18 09:21 LRN [id number]) Physical Therapy Assessment Progress Towards Goals Progress Towards Goals Progressing Toward Goals Progress Comments Goal #1: Progressing HEP. Goal #2: Progressing, pain is an ache in the entire leg. Goal #3: Progressing hip strength, no change with ability to return to walking program. Goal #4: Pt able to sleep through the night x 2. Assessment Summary Assessment Much improved awareness of core stabilization with DLS ex 's. Loss of stability at mostly end-ranges of leg movement. Pt is tender in R Upper Gluteals and at Greater trochanter. Pt pain onset may be due to positioning at night or activities during the day. Pt to monitor more closely activities and when pain returns. Hip ER improved after SIJ mob. Physical Therapy Plan Frequency and Duration Frequency of Treatment 2x/Week Plan of Care Start Date 05/04/18 Plan of Care End Date 07/02/18 Next Visit Focus/Plan Next Note Type Treatment Note Next Visit Plan Check response to last treatment (return of pain and when), JMT to correct a posteriorly rotated or outflared R innominate as needed, Check Sacrum, STM to Upper Gluts and start HEP of Gluteal/Glut Medius stretching , Modalities as needed for pain management. Progress Pelvic/Core stabilization.
--- NOTE | 2018-05-18 12:30 | PT.OTN ---
Current Diagnoses Sciatica, right side (05/18/18) Physical Therapy Treatment Note PT-OP-A Visit Information Start: 05/04/18 09:46 Freq: Status: Active Protocol: Document 05/18/18 11:23 LRN (Rec: 05/18/18 12:29 LRN [id number]) Out-Patient Physical Therapy Visit Information Visit Information Visit Type Treatment Note Visit Start Time 11:23 Visit Stop Time 12:08 Total Visit Minutes 45 Visit Number 5 Number of PHYSIATRIST Visits 0 Evaluation Information Evaluation Date 05/04/18 PT-OP-B Current Condition Start: 05/04/18 09:46 Freq: Status: Active Protocol: Document 05/04/18 09:49 LRN (Rec: 05/04/18 10:06 LRN [id number]) Current Condition History of Current Condition Onset Date 02/22/2018 Current Complaints Deep R postrerio hip pain. R front lower leg pain most History of Current Condition Insidious onset of R Sciatic pain. Hip pain is with standing, the first few steps are shooting pain down the lateral side of the thigh into the front of the lower leg. Deep ache in the R posterior hip. She reports having trouble sleeping, taking GABAPENTIN that she finds helpful. She is waking ~2 times at night and is used to walking 3-4 miles/day, but now only walks a couple miles/day (with her dog). Prior Treatments and Tests None. Treatment Goals Patient/Caregiver Goals Goal is no pain. Prior Functional Status Baseline Function- ADL's Independent Baseline Function- Mobility Independent Baseline Function- Gait Walked 2-3 miles daily. 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 Getting up/down from floor. Functional Limitations- Mobility/Gait Initial step from prolonged positioning is painful. 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 Pain is off and on. Sleeping better with pillow. Guy great this morning getting up, walked the dog, sat down and stood to shooting pain. PT-OP-F Manual Assessment Start: 05/04/18 09:46 Freq: Status: Active Protocol: Document 05/04/18 09:49 LRN (Rec: 05/06/18 15:19 LRN [id number]) Manual Assessments Joint Mobility Assessment Joint Mobility Assessment R innominate posteriorly rotated with inflare. PT-OP-H Neuro Start: 05/04/18 09:46 Freq: Status: Active Protocol: Document 05/04/18 09:49 LRN (Rec: 05/06/18 15:19 LRN [id number]) Sensation Evaluation Gross Sensation Gross Sensation WNL Comments Summary Comments Pt reported the past couple days her toes have felt like they have cotton around them. Deep Tendon Reflex & Clonus Assessment Deep Tendon Reflex Bilateral Achilles Deep Tendon Reflex 1+ Diminished Bilateral Patellar Deep Tendon Reflex 2+ Normal PT-OP-J Posture/Palpation/Skin Start: 05/04/18 09:46 Freq: Status: Active Protocol: Document 05/04/18 09:49 LRN (Rec: 05/06/18 15:19 LRN [id number]) Posture Evaluation Comments Posture Comments Posture in standing: Forward head, R shoulder is high, Thoracic spine has mild C- curve with apex on right, L/S is tilted left, R Iliac crest is high, R SIJ is deep, flattened plantar arches, increased lordosis. Palpation Assessment Location R SIJ Palpation Location R SIJ Palpation Findings Tenderness Palpation Details Deep in standing. PT-OP-K Range of Motion Start: 05/04/18 09:46 Freq: Status: Active Protocol: Document 05/04/18 09:49 LRN (Rec: 05/06/18 15:19 LRN [id number]) Lumbar Spine Range of Motion Lumbar Spine Active Degrees Testing Position Standing Flexion 75 Extension 5 Lateral Flexion Left 15 Lateral Flexion Right 10 ROM Limitations Soft Tissue Tightness Hip Goniometric Range of Motion Hip Measured in Degrees Right Passive Testing Position Supine Straight Leg Raise 95 Extension 0 Internal Rotation 10 External Rotation 65 Left Passive Testing Position Supine Straight Leg Raise 90 Extension 0 Internal Rotation 25 External Rotation 85 PT-OP-L Special Tests Start: 05/04/18 09:46 Freq: Status: Active Protocol: Document 05/04/18 09:49 LRN (Rec: 05/06/18 15:19 LRN [id number]) Special Tests Hip Special Tests STACIA Test Results Postive Right Hip PT-OP-M Strength Start: 05/04/18 09:46 Freq: Status: Active Protocol: Document 05/04/18 09:49 LRN (Rec: 05/06/18 15:19 LRN [id number]) Hip Strength Hip Manual Muscle Testing Right Flexion (L2) 3+ Fair+ Extension (S1) 3 Fair Abduction 5 Normal Adduction 3 Fair External Rotation 3+ Fair+ Internal Rotation 5 Normal Left Flexion (L2) 5 Normal Extension (S1) 3 Fair Abduction 5 Normal Adduction 5 Normal External Rotation 5 Normal Internal Rotation 5 Normal PT-OP-Q Treatments Start: 05/04/18 09:46 Freq: Status: Active Protocol: Document 05/18/18 11:23 LRN (Rec: 05/18/18 12:29 LRN [id number]) Therapeutic Exercises Supine Exercises Glut Medius stretch Supine Exercise Name Hip ADD at 90/90, and sidelie hip AD with straight leg Side right Reps/Minutes 4' Glut stretch Supine Exercise Name KTC Side right Reps/Minutes 2' DLS Supine Exercise Name Alternate arm lifts, Paul arm lifts Reps/Minutes 4 Sidelying Exercises Hip AD Sidelying Exercise Name Hip AD Side right Reps/Minutes 15x2 Sitting Exercises Knee Roll in/out Reps/Minutes 20x Standing Exercises Core Stab Standing Exercise Name Stab with sit>stand and first steps after sitting Reps/Minutes 8x Manual Therapy Treatment Soft Tissue Mobilization R lateral hip Body Location Gluteals, Piriformis, Glut Medius Mobilization Type Cross-Friction Strumming Intensity/Depth Moderate Body Position Sidelying Comments DTM at deep ache site ( Piriformis & Glut Medius) Joint Mobilizations R hip Joint Posterior [place] with active hip ER stretch Grade II Body Position Supine Comments Deep ache occured with grade III applied. Sacral Direction Correcting a R rotated sacrum Body Position Prone Comments MFR SIJ Joint R SIJ, L SIJ Direction Correcting an outflared R innominate & inflared L innominate Body Position Supine Comments Contract/Relax Manual Traction R leg Details Axial traction of R LE with ER mob Body Position Supine Self-Care/Home Management Treatment Education Patient Education Home Exercise Program Activities Self-Care/Home Management Activities Issued and reviewed HEP of R hip stretches (SKTC, Lateral Hip, Piriformis/Glut Med) PT-OP-R Modalities Start: 05/04/18 09:46 Freq: Status: Active Protocol: Document 05/13/18 08:17 LRN (Rec: 05/13/18 09:21 LRN [id number]) Ultrasound Therapy Treatment R upper Glut & Greater Trochanter Treatment Duration (minutes) 8 Patient Position Supine Coupling Medium Ultrasound Gel Applicator Size (cm2) 2 Frequency Setting (mHz) 1 Mode Setting Continuous Duty Cycle 100% Intensity Setting (w/cm2) 1.5 PT-OP-T Assessment and Plan Start: 05/04/18 09:46 Freq: Status: Active Protocol: Document 05/18/18 11:23 LRN (Rec: 05/18/18 12:29 LRN [id number]) Physical Therapy Assessment Progress Towards Goals Progress Towards Goals Progressing Toward Goals Progress Comments Goal #1: Progressing HEP. Goal #2: Progressing, pain is an ache in the R hip. Goal #3: Progressing hip strength. Pt able to walk dog with only ache felt. Sharp pain with transfer and first steps after prolonged sitting. Goal #4: Pt able to sleep through the night x 2. Assessment Summary Assessment Improved awareness of core stabilization with DLS ex's. Not assessed when loss of stability occurred. Pt is tender in R Piriformis/Glut Medius region. Less pain at night with use of pillows for R leg support. Pt to continue monitoring closely activities and when pain returns. Hip ER improved after SIJ mob, but deep ache onset with posterior glide. Able to correct innominate position on L side. Physical Therapy Plan Next Visit Focus/Plan Next Note Type Treatment Note Next Visit Plan JMT to correct a posteriorly rotated or outflared R innominate/inflare L innominate as needed, Check Sacrum, STM to Upper Gluts and check HEP issued of Gluteal/ Glut Medius stretching, Modalities as needed for pain management. Progress Pelvic/ Core stabilization. Might try US to R Glut Med/Piriformis.
--- NOTE | 2018-05-21 15:29 | PT.OTN ---
Current Diagnoses Sciatica, right side (05/21/18) Physical Therapy Treatment Note PT-OP-A Visit Information Start: 05/04/18 09:46 Freq: Status: Active Protocol: Document 05/21/18 10:31 LRN (Rec: 05/21/18 15:13 LRN [id number]) Out-Patient Physical Therapy Visit Information Visit Information Visit Type Treatment Note Visit Start Time 10:31 Visit Stop Time 11:19 Total Visit Minutes 48 Visit Number 6 Number of BORING INSPECTOR Visits 0 Evaluation Information Evaluation Date 05/04/18 PT-OP-B Current Condition Start: 05/04/18 09:46 Freq: Status: Active Protocol: Document 05/04/18 09:49 LRN (Rec: 05/04/18 10:06 LRN [id number]) Current Condition History of Current Condition Onset Date 02/22/2018 Current Complaints Deep R postrerio hip pain. R front lower leg pain most History of Current Condition Insidious onset of R Sciatic pain. Hip pain is with standing, the first few steps are shooting pain down the lateral side of the thigh into the front of the lower leg. Deep ache in the R posterior hip. She reports having trouble sleeping, taking GABAPENTIN that she finds helpful. She is waking ~2 times at night and is used to walking 3-4 miles/day, but now only walks a couple miles/day (with her dog). Prior Treatments and Tests None. Treatment Goals Patient/Caregiver Goals Goal is no pain. Prior Functional Status Baseline Function- ADL's Independent Baseline Function- Mobility Independent Baseline Function- Gait Walked 2-3 miles daily. 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 Getting up/down from floor. Functional Limitations- Mobility/Gait Initial step from prolonged positioning is painful. 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 Therapy/Recovery PT-OP-C Subjective Start: 05/04/18 09:46 Freq: Status: Active Protocol: Document 05/21/18 10:31 LRN (Rec: 05/21/18 11:17 LRN [id number]) OP-PT Subjective Patient Comments Patient Comments Walked a lot yesterday and felt good. Pain not nearly as much as it was. Slept without pain until early in the morning woke with flaming pain down the leg to the foot . No sharp pain in the middle of the night or on first waking. Ache pain is constant, but 30% better. Most severe in lower leg to ankle. Did not take her Gabapentin for one day because ran out of the medication. Patient Reported Progress Improving PT-OP-F Manual Assessment Start: 05/04/18 09:46 Freq: Status: Active Protocol: Document 05/04/18 09:49 LRN (Rec: 05/06/18 15:19 LRN [id number]) Manual Assessments Joint Mobility Assessment Joint Mobility Assessment R innominate posteriorly rotated with inflare. PT-OP-H Neuro Start: 05/04/18 09:46 Freq: Status: Active Protocol: Document 05/04/18 09:49 LRN (Rec: 05/06/18 15:19 LRN [id number]) Sensation Evaluation Gross Sensation Gross Sensation WNL Comments Summary Comments Pt reported the past couple days her toes have felt like they have cotton around them. Deep Tendon Reflex & Clonus Assessment Deep Tendon Reflex Bilateral Achilles Deep Tendon Reflex 1+ Diminished Bilateral Patellar Deep Tendon Reflex 2+ Normal PT-OP-J Posture/Palpation/Skin Start: 05/04/18 09:46 Freq: Status: Active Protocol: Document 05/04/18 09:49 LRN (Rec: 05/06/18 15:19 LRN [id number]) Posture Evaluation Comments Posture Comments Posture in standing: Forward head, R shoulder is high, Thoracic spine has mild C- curve with apex on right, L/S is tilted left, R Iliac crest is high, R SIJ is deep, flattened plantar arches, increased lordosis. Palpation Assessment Location R SIJ Palpation Location R SIJ Palpation Findings Tenderness Palpation Details Deep in standing. PT-OP-K Range of Motion Start: 05/04/18 09:46 Freq: Status: Active Protocol: Document 05/04/18 09:49 LRN (Rec: 05/06/18 15:19 LRN [id number]) Lumbar Spine Range of Motion Lumbar Spine Active Degrees Testing Position Standing Flexion 75 Extension 5 Lateral Flexion Left 15 Lateral Flexion Right 10 ROM Limitations Soft Tissue Tightness Hip Goniometric Range of Motion Hip Measured in Degrees Right Passive Testing Position Supine Straight Leg Raise 95 Extension 0 Internal Rotation 10 External Rotation 65 Left Passive Testing Position Supine Straight Leg Raise 90 Extension 0 Internal Rotation 25 External Rotation 85 PT-OP-L Special Tests Start: 05/04/18 09:46 Freq: Status: Active Protocol: Document 05/04/18 09:49 LRN (Rec: 05/06/18 15:19 LRN [id number]) Special Tests Hip Special Tests STACIA Test Results Postive Right Hip PT-OP-M Strength Start: 05/04/18 09:46 Freq: Status: Active Protocol: Document 05/04/18 09:49 LRN (Rec: 05/06/18 15:19 LRN [id number]) Hip Strength Hip Manual Muscle Testing Right Flexion (L2) 3+ Fair+ Extension (S1) 3 Fair Abduction 5 Normal Adduction 3 Fair External Rotation 3+ Fair+ Internal Rotation 5 Normal Left Flexion (L2) 5 Normal Extension (S1) 3 Fair Abduction 5 Normal Adduction 5 Normal External Rotation 5 Normal Internal Rotation 5 Normal PT-OP-Q Treatments Start: 05/04/18 09:46 Freq: Status: Active Protocol: Document 05/21/18 10:31 LRN (Rec: 05/21/18 11:17 LRN [id number]) Therapeutic Exercises Supine Exercises Glut Medius stretch Supine Exercise Name Hip ADD at 90/90, and sidelie hip AD with straight leg Side right Reps/Minutes 4' Glut stretch Supine Exercise Name KTC Side right Reps/Minutes 2' LE Roll in/out Supine Exercise Name Roll in/outs with Deep breathing Resistance T-Band/Ball Reps/Minutes 10x DLS Supine Exercise Name Alternate arm lifts, Paul arm lifts Reps/Minutes 4 BKFO with T-Band Side bilateral Resistance Lev 2 T-Band Reps/Minutes 30 x Comments Folded towel x1 under R foot. Making sure symmetrical movement. Bridges Supine Exercise Name DLS: Bridging Side bilateral Equipment Used T-Ball/Yard stick Reps/Minutes 15x2 Comments Folded towel x 1 under R foot Manual Therapy Treatment Soft Tissue Mobilization JAMAL stretch Body Location TFL, Glut Med & Max, Piriformis, Hamsting, Anterior Tib, EHL & EHB Intensity/Depth Moderate Comments JAMAL stretching: Prone, Sidelying, Supine Joint Mobilizations Sacral Direction Correcting a R rotated sacrum Body Position Prone Comments MFR PT-OP-R Modalities Start: 05/04/18 09:46 Freq: Status: Active Protocol: Document 05/21/18 10:31 LRN (Rec: 05/21/18 11:17 LRN [id number]) Ultrasound Therapy Treatment R upper Glut & Greater Trochanter Treatment Duration (minutes) 8 Patient Position Supine Coupling Medium Ultrasound Gel Applicator Size (cm2) 2 Frequency Setting (mHz) 1 Mode Setting Continuous Duty Cycle 100% Intensity Setting (w/cm2) 1.5 PT-OP-T Assessment and Plan Start: 05/04/18 09:46 Freq: Status: Active Protocol: Document 05/21/18 10:31 LRN (Rec: 05/21/18 11:17 LRN [id number]) Physical Therapy Assessment Goals Four Impairment Asymmetry of pelvis and decreased R hip mobility interrupting sleep Detention Goal (LTG) Pt will be able to sleep through the night without onset of R hip pain. LTG Duration 07/02/18 (05/21/18: Pain Goal Met, asymmetry variable) Three Impairment Decreased R hip strength Detention Goal (LTG) Pt will be able to resume walking 2 miles/day for her diabetic health care. LTG Duration 07/02/18 Two Impairment R Sciatic Pain with first step rated 7/10 Short Term Goal (STG) Decrease pain onset with gait 50% STG Duration 06/01/18 Detention Goal (LTG) Pt will be able to walk without pain onset. LTG Duration 07/02/18 One Impairment Lacks self care HEP Detention Goal (LTG) Pt will be independent with a self care HEP. LTG Duration 07/02/18 (05/10/18: Progressing) Progress Towards Goals Progress Towards Goals Progressing Toward Goals Progress Comments Goal #1: Progressing HEP. Goal #2: Progressing, pain is an ache in the R hip. Goal #3: Progressing hip strength. Pt able to walk dog with only ache felt. Sharp pain with transfer and first steps after prolonged sitting. Goal #4: GOAL MET. Pt is able to sleep through the night without pain. Assessment Summary Assessment Pt leg length is equal to start, but sacrum is R rotated . Pt is tender in R Piriformis/Glut Medius region. She is tilted left when bridging and unable to maintain level pelvis. Minimal to no pain at night with use of pillows for R leg support; therefore pt is able to sleep through the night. Pt had no pain with gait immediately after treatment. Physical Therapy Plan Frequency and Duration Frequency of Treatment 2x/Week Plan of Care Start Date 05/04/18 Plan of Care End Date 07/02/18 Next Visit Focus/Plan Next Note Type Treatment Note Next Visit Plan JMT to correct innominates as needed, monitor Sacrum, check response to US at R TFL and upper gluteals. STM to Upper Gluts. Modalities as needed for pain management. Progress Pelvic/Core stabilization.
--- NOTE | 2018-05-24 14:43 | PT.OTN ---
Current Diagnoses Sciatica, right side (05/24/18) Physical Therapy Treatment Note PT-OP-A Visit Information Start: 05/04/18 09:46 Freq: Status: Active Protocol: Document 05/24/18 09:03 LRN (Rec: 05/24/18 09:50 LRN [id number]) Out-Patient Physical Therapy Visit Information Visit Information Visit Type Treatment Note Visit Start Time 09:03 Visit Stop Time 09:48 Total Visit Minutes 45 Visit Number 7 Number of GOLD ASSAYER Visits 0 Evaluation Information Evaluation Date 05/04/18 PT-OP-B Current Condition Start: 05/04/18 09:46 Freq: Status: Active Protocol: Document 05/04/18 09:49 LRN (Rec: 05/04/18 10:06 LRN [id number]) Current Condition History of Current Condition Onset Date 02/22/2018 Current Complaints Deep R postrerio hip pain. R front lower leg pain most History of Current Condition Insidious onset of R Sciatic pain. Hip pain is with standing, the first few steps are shooting pain down the lateral side of the thigh into the front of the lower leg. Deep ache in the R posterior hip. She reports having trouble sleeping, taking GABAPENTIN that she finds helpful. She is waking ~2 times at night and is used to walking 3-4 miles/day, but now only walks a couple miles/day (with her dog). Prior Treatments and Tests None. Treatment Goals Patient/Caregiver Goals Goal is no pain. Prior Functional Status Baseline Function- ADL's Independent Baseline Function- Mobility Independent Baseline Function- Gait Walked 2-3 miles daily. 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 Getting up/down from floor. Functional Limitations- Mobility/Gait Initial step from prolonged positioning is painful. 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 Therapy/Recovery PT-OP-C Subjective Start: 05/04/18 09:46 Freq: Status: Active Protocol: Document 05/24/18 09:03 LRN (Rec: 05/24/18 09:50 LRN [id number]) OP-PT Subjective Patient Comments Patient Comments 2 really good days, stood a lot. Drove to [place] and was able to get up without pain. Achy but painfree, ache is lessening. Nights have been good, still aches. PT-OP-F Manual Assessment Start: 05/04/18 09:46 Freq: Status: Active Protocol: Document 05/04/18 09:49 LRN (Rec: 05/06/18 15:19 LRN [id number]) Manual Assessments Joint Mobility Assessment Joint Mobility Assessment R innominate posteriorly rotated with inflare. PT-OP-H Neuro Start: 05/04/18 09:46 Freq: Status: Active Protocol: Document 05/04/18 09:49 LRN (Rec: 05/06/18 15:19 LRN [id number]) Sensation Evaluation Gross Sensation Gross Sensation WNL Comments Summary Comments Pt reported the past couple days her toes have felt like they have cotton around them. Deep Tendon Reflex & Clonus Assessment Deep Tendon Reflex Bilateral Achilles Deep Tendon Reflex 1+ Diminished Bilateral Patellar Deep Tendon Reflex 2+ Normal PT-OP-J Posture/Palpation/Skin Start: 05/04/18 09:46 Freq: Status: Active Protocol: Document 05/04/18 09:49 LRN (Rec: 05/06/18 15:19 LRN [id number]) Posture Evaluation Comments Posture Comments Posture in standing: Forward head, R shoulder is high, Thoracic spine has mild C- curve with apex on right, L/S is tilted left, R Iliac crest is high, R SIJ is deep, flattened plantar arches, increased lordosis. Palpation Assessment Location R SIJ Palpation Location R SIJ Palpation Findings Tenderness Palpation Details Deep in standing. PT-OP-K Range of Motion Start: 05/04/18 09:46 Freq: Status: Active Protocol: Document 05/04/18 09:49 LRN (Rec: 05/06/18 15:19 LRN [id number]) Lumbar Spine Range of Motion Lumbar Spine Active Degrees Testing Position Standing Flexion 75 Extension 5 Lateral Flexion Left 15 Lateral Flexion Right 10 ROM Limitations Soft Tissue Tightness Hip Goniometric Range of Motion Hip Measured in Degrees Right Passive Testing Position Supine Straight Leg Raise 95 Extension 0 Internal Rotation 10 External Rotation 65 Left Passive Testing Position Supine Straight Leg Raise 90 Extension 0 Internal Rotation 25 External Rotation 85 PT-OP-L Special Tests Start: 05/04/18 09:46 Freq: Status: Active Protocol: Document 05/04/18 09:49 LRN (Rec: 05/06/18 15:19 LRN [id number]) Special Tests Hip Special Tests STACIA Test Results Postive Right Hip PT-OP-M Strength Start: 05/04/18 09:46 Freq: Status: Active Protocol: Document 05/04/18 09:49 LRN (Rec: 05/06/18 15:19 LRN [id number]) Hip Strength Hip Manual Muscle Testing Right Flexion (L2) 3+ Fair+ Extension (S1) 3 Fair Abduction 5 Normal Adduction 3 Fair External Rotation 3+ Fair+ Internal Rotation 5 Normal Left Flexion (L2) 5 Normal Extension (S1) 3 Fair Abduction 5 Normal Adduction 5 Normal External Rotation 5 Normal Internal Rotation 5 Normal PT-OP-Q Treatments Start: 05/04/18 09:46 Freq: Status: Active Protocol: Document 05/24/18 09:03 LRN (Rec: 05/24/18 09:50 LRN [id number]) Gym Equipment Cable Column (Body Solid) Leg Curl Details Seat- 5 holes Resistance 30# Reps/Time 8x31q Leg Extension Details Seat- 5 holes Resistance 20# Reps/Time 8x2 Shuttle Recovery Bilateral Squats Resistance 62# Shuttle Recovery Platform Stable Reps/Time 10x3 Therapeutic Ball 1 Exercise Details Bridging Ball Size/Color Red Therapeutic Exercises Supine Exercises Hip ADD Supine Exercise Name Stretch Side right Piriformis Stretch Side right Reps/Minutes 2' Glut Medius stretch Supine Exercise Name Hip ADD at 90/90, and sidelie hip AD with straight leg Side right Reps/Minutes 4' Bridges Supine Exercise Name DLS: Bridging Side bilateral Reps/Minutes 15x2 Comments Folded towel x 1 under R foot Sitting Exercises Knee Roll in/out Reps/Minutes 10x Manual Therapy Treatment Soft Tissue Mobilization JAMAL stretch Body Location TFL, Glut Med & Max, Piriformis, Anterior Tib, EHL & EHB Mobilization Type Oscillations Intensity/Depth Deep Comments JAMAL stretching: Prone, Sidelying, Supine R hip AD's Body Location Hip AD's Comments Superficial to deep. PT-OP-R Modalities Start: 05/04/18 09:46 Freq: Status: Active Protocol: Document 05/24/18 09:03 LRN (Rec: 05/24/18 09:50 LRN [id number]) Ultrasound Therapy Treatment R upper Glut & Greater Trochanter Treatment Duration (minutes) 8 Patient Position Supine Coupling Medium Ultrasound Gel Applicator Size (cm2) 2 Frequency Setting (mHz) 1 Mode Setting Continuous Duty Cycle 100% Intensity Setting (w/cm2) 1.5 PT-OP-T Assessment and Plan Start: 05/04/18 09:46 Freq: Status: Active Protocol: Document 05/24/18 09:03 LRN (Rec: 05/24/18 09:50 LRN [id number]) Physical Therapy Assessment Goals Four Impairment Asymmetry of pelvis and decreased R hip mobility interrupting sleep Hair Specialist Goal (LTG) Pt will be able to sleep through the night without onset of R hip pain. LTG Duration 07/02/18 (05/21/18: Pain Goal Met, asymmetry variable) Three Impairment Decreased R hip strength Hair Specialist Goal (LTG) Pt will be able to resume walking 2 miles/day for her diabetic health care. LTG Duration 07/02/18 Two Impairment R Sciatic Pain with first step rated 7/10 Short Term Goal (STG) Decrease pain onset with gait 50% STG Duration 06/01/18 Hair Specialist Goal (LTG) Pt will be able to walk without pain onset. LTG Duration 07/02/18 Progress Towards Goals Progress Towards Goals Progressing Toward Goals Progress Comments Goal #1: Progressing HEP. Goal #2: Progressing, pain is an ache in the R hip. Goal #3: Progressing hip strength. Pt able to walk dog with only ache felt. Sharp pain with transfer and first steps after prolonged sitting. Goal #4: GOAL MET. Pt is able to sleep through the night without pain. Assessment Summary Assessment No pelvic obliquity noted. Pt able to perform bridge symmetrically after minimal training. Pt appears to have + response to ultrasound with reduction in muscle tension. Stiffness in the R hip with IR is noted. Pt pain in R greater trochanter and lateral ankle, ?L5. Physical Therapy Plan Frequency and Duration Frequency of Treatment 2x/Week Plan of Care Start Date 05/04/18 Plan of Care End Date 07/02/18 Next Visit Focus/Plan Next Note Type Treatment Note Next Visit Plan JMT to correct innominates as needed, monitor Sacrum. STM to Upper Gluts. Modalities as needed for pain management. Progress Pelvic/Core stabilization.
--- NOTE | 2018-05-28 10:05 | PT.OTN ---
Current Diagnoses Sciatica, right side (05/28/18) Physical Therapy Treatment Note PT-OP-A Visit Information Start: 05/04/18 09:46 Freq: Status: Active Protocol: Document 05/28/18 09:05 LRN (Rec: 05/28/18 09:50 LRN [id number]) Out-Patient Physical Therapy Visit Information Visit Information Visit Type Treatment Note Visit Start Time 09:03 Visit Stop Time 09:48 Total Visit Minutes 45 Visit Number 8 Number of MARKETING ANALYST Visits 0 Evaluation Information Evaluation Date 05/04/18 PT-OP-B Current Condition Start: 05/04/18 09:46 Freq: Status: Active Protocol: Document 05/04/18 09:49 LRN (Rec: 05/04/18 10:06 LRN [id number]) Current Condition History of Current Condition Onset Date 02/22/2018 Current Complaints Deep R postrerio hip pain. R front lower leg pain most History of Current Condition Insidious onset of R Sciatic pain. Hip pain is with standing, the first few steps are shooting pain down the lateral side of the thigh into the front of the lower leg. Deep ache in the R posterior hip. She reports having trouble sleeping, taking GABAPENTIN that she finds helpful. She is waking ~2 times at night and is used to walking 3-4 miles/day, but now only walks a couple miles/day (with her dog). Prior Treatments and Tests None. Treatment Goals Patient/Caregiver Goals Goal is no pain. Prior Functional Status Baseline Function- ADL's Independent Baseline Function- Mobility Independent Baseline Function- Gait Walked 2-3 miles daily. 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 Getting up/down from floor. Functional Limitations- Mobility/Gait Initial step from prolonged positioning is painful. 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 Therapy/Recovery PT-OP-C Subjective Start: 05/04/18 09:46 Freq: Status: Active Protocol: Document 05/28/18 09:05 LRN (Rec: 05/28/18 09:50 LRN [id number]) OP-PT Subjective Patient Comments Patient Comments Pain overall is less and duller. Woke lying on R side, didn't feel good but was on the side. I can't lie on R side during the day. Wanting to have more tests to find out what is wrong because a couple days ago had a really bad day and couldn't sleep the night again. PT-OP-F Manual Assessment Start: 05/04/18 09:46 Freq: Status: Active Protocol: Document 05/04/18 09:49 LRN (Rec: 05/06/18 15:19 LRN [id number]) Manual Assessments Joint Mobility Assessment Joint Mobility Assessment R innominate posteriorly rotated with inflare. PT-OP-H Neuro Start: 05/04/18 09:46 Freq: Status: Active Protocol: Document 05/04/18 09:49 LRN (Rec: 05/06/18 15:19 LRN [id number]) Sensation Evaluation Gross Sensation Gross Sensation WNL Comments Summary Comments Pt reported the past couple days her toes have felt like they have cotton around them. Deep Tendon Reflex & Clonus Assessment Deep Tendon Reflex Bilateral Achilles Deep Tendon Reflex 1+ Diminished Bilateral Patellar Deep Tendon Reflex 2+ Normal PT-OP-J Posture/Palpation/Skin Start: 05/04/18 09:46 Freq: Status: Active Protocol: Document 05/04/18 09:49 LRN (Rec: 05/06/18 15:19 LRN [id number]) Posture Evaluation Comments Posture Comments Posture in standing: Forward head, R shoulder is high, Thoracic spine has mild C- curve with apex on right, L/S is tilted left, R Iliac crest is high, R SIJ is deep, flattened plantar arches, increased lordosis. Palpation Assessment Location R SIJ Palpation Location R SIJ Palpation Findings Tenderness Palpation Details Deep in standing. PT-OP-K Range of Motion Start: 05/04/18 09:46 Freq: Status: Active Protocol: Document 05/04/18 09:49 LRN (Rec: 05/06/18 15:19 LRN [id number]) Lumbar Spine Range of Motion Lumbar Spine Active Degrees Testing Position Standing Flexion 75 Extension 5 Lateral Flexion Left 15 Lateral Flexion Right 10 ROM Limitations Soft Tissue Tightness Hip Goniometric Range of Motion Hip Measured in Degrees Right Passive Testing Position Supine Straight Leg Raise 95 Extension 0 Internal Rotation 10 External Rotation 65 Left Passive Testing Position Supine Straight Leg Raise 90 Extension 0 Internal Rotation 25 External Rotation 85 PT-OP-L Special Tests Start: 02/05/19 09:46 Freq: Status: Active Protocol: Document 05/04/18 09:49 LRN (Rec: 05/06/18 15:19 LRN [id number]) Special Tests Hip Special Tests STACIA Test Results Postive Right Hip PT-OP-M Strength Start: 05/04/18 09:46 Freq: Status: Active Protocol: Document 05/04/18 09:49 LRN (Rec: 05/06/18 15:19 LRN [id number]) Hip Strength Hip Manual Muscle Testing Right Flexion (L2) 3+ Fair+ Extension (S1) 3 Fair Abduction 5 Normal Adduction 3 Fair External Rotation 3+ Fair+ Internal Rotation 5 Normal Left Flexion (L2) 5 Normal Extension (S1) 3 Fair Abduction 5 Normal Adduction 5 Normal External Rotation 5 Normal Internal Rotation 5 Normal PT-OP-Q Treatments Start: 05/04/18 09:46 Freq: Status: Active Protocol: Document 05/28/18 09:05 LRN (Rec: 05/28/18 09:50 LRN [id number]) Gym Equipment Cable Column (Body Solid) Leg Curl Details Seat- 5 holes Resistance 30# Reps/Time 10x3 Leg Extension Details Seat- 5 holes Resistance 20#, 10# Reps/Time 10x2, 10x Shuttle Recovery Bilateral Squats Resistance 62# Shuttle Recovery Platform Stable Reps/Time 10x3 Therapeutic Exercises Supine Exercises DKTC Supine Exercise Name Stretch Side bilateral Reps/Minutes 2' Hip ADD Supine Exercise Name Stretch Side right Piriformis Stretch Side right Reps/Minutes 2' Sidelying Exercises Hip AD Sidelying Exercise Name Hip AD Side right Reps/Minutes 10x3 Sitting Exercises Knee Roll in/out Reps/Minutes 10x Standing Exercises L Trunk shift Reps/Minutes 2' Trunk SB Standing Exercise Name R SB - stretch L lateral trunk Reps/Minutes 3' Manual Therapy Treatment Soft Tissue Mobilization R lateral hip Body Location Along R sacral border Mobilization Type Trigger Point Release Intensity/Depth Moderate Manual Traction R leg Details Standing self traction Body Position Standing Self-Care/Home Management Treatment Education Patient Education Home Exercise Program Activities Self-Care/Home Management Activities Issued & reviewed HEP: Stretch: Trunk R SB & Lateral shift of pelvis to L. PT-OP-R Modalities Start: 05/04/18 09:46 Freq: Status: Active Protocol: Document 05/24/18 09:03 LRN (Rec: 05/24/18 09:50 LRN [id number]) Ultrasound Therapy Treatment R upper Glut & Greater Trochanter Treatment Duration (minutes) 8 Patient Position Supine Coupling Medium Ultrasound Gel Applicator Size (cm2) 2 Frequency Setting (mHz) 1 Mode Setting Continuous Duty Cycle 100% Intensity Setting (w/cm2) 1.5 PT-OP-T Assessment and Plan Start: 05/04/18 09:46 Freq: Status: Active Protocol: Document 05/28/18 09:05 LRN (Rec: 05/28/18 09:50 LRN [id number]) Physical Therapy Assessment Progress Towards Goals Progress Towards Goals Progressing Toward Goals Progress Comments Goal #1: Progressing HEP. Goal #2: Progressing, pain is an ache in the R hip. Goal #3: Progressing hip strength. Pt able to walk dog with only ache felt. Sharp pain with transfer and first steps after prolonged sitting. Goal #4: GOAL MET. Pt is able to sleep through the night intermittently without pain. Assessment Summary Assessment Pt tends to stand with more WBing on LLE. No pelvic obliquity noted. Pt had + response to manual therapy with reduction in muscle tension. Pt pain in R greater trochanter and lateral ankle, ?L5, try starting with lumbar traction (at pelvis) next sesion. Physical Therapy Plan Frequency and Duration Frequency of Treatment 2x/Week Plan of Care Start Date 05/04/18 Plan of Care End Date 07/02/18 Next Visit Focus/Plan Next Note Type Treatment Note Next Visit Plan Start with Lumbar traction ( pull at pelvis). JMT to correct innominates as needed, monitor Sacrum. STM to Upper Gluts. US and/or STM pain management to decrease muscle tone of R Gluts/Piriformis. Progress Pelvic/Core stabilization.
--- NOTE | 2018-05-31 17:16 | PT.OTN ---
Current Diagnoses Sciatica, right side (05/31/18) Physical Therapy Treatment Note PT-OP-A Visit Information Start: 05/04/18 09:46 Freq: Status: Active Protocol: Document 05/31/18 08:16 LRN (Rec: 05/31/18 09:05 LRN [id number]) Out-Patient Physical Therapy Visit Information Visit Information Visit Type Progress Note Visit Start Time 08:16 Visit Stop Time 09:04 Total Visit Minutes 48 Visit Number 9 Number of COMMERCIAL TIRE SERVICE TECHNICIAN Visits 0 Evaluation Information Evaluation Date 05/04/18 PT-OP-B Current Condition Start: 05/04/18 09:46 Freq: Status: Active Protocol: Document 05/04/18 09:49 LRN (Rec: 05/04/18 10:06 LRN [id number]) Current Condition History of Current Condition Onset Date 02/22/2018 Current Complaints Deep R postrerio hip pain. R front lower leg pain most History of Current Condition Insidious onset of R Sciatic pain. Hip pain is with standing, the first few steps are shooting pain down the lateral side of the thigh into the front of the lower leg. Deep ache in the R posterior hip. She reports having trouble sleeping, taking GABAPENTIN that she finds helpful. She is waking ~2 times at night and is used to walking 3-4 miles/day, but now only walks a couple miles/day (with her dog). Prior Treatments and Tests None. Treatment Goals Patient/Caregiver Goals Goal is no pain. Prior Functional Status Baseline Function- ADL's Independent Baseline Function- Mobility Independent Baseline Function- Gait Walked 2-3 miles daily. 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 Getting up/down from floor. Functional Limitations- Mobility/Gait Initial step from prolonged positioning is painful. 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 2 days ago on Thursday I sat all day driving and in [place] and was in pain. Today ache is 2/10 in R hip. Feels it when walking. Good in mornings. Had X-rays done. PT-OP-F Manual Assessment Start: 05/04/18 09:46 Freq: Status: Active Protocol: Document 05/04/18 09:49 LRN (Rec: 05/06/18 15:19 LRN [id number]) Manual Assessments Joint Mobility Assessment Joint Mobility Assessment R innominate posteriorly rotated with inflare. PT-OP-H Neuro Start: 05/04/18 09:46 Freq: Status: Active Protocol: Document 05/04/18 09:49 LRN (Rec: 05/06/18 15:19 LRN [id number]) Sensation Evaluation Gross Sensation Gross Sensation WNL Comments Summary Comments Pt reported the past couple days her toes have felt like they have cotton around them. Deep Tendon Reflex & Clonus Assessment Deep Tendon Reflex Bilateral Achilles Deep Tendon Reflex 1+ Diminished Bilateral Patellar Deep Tendon Reflex 2+ Normal PT-OP-J Posture/Palpation/Skin Start: 05/04/18 09:46 Freq: Status: Active Protocol: Document 05/04/18 09:49 LRN (Rec: 05/06/18 15:19 LRN [id number]) Posture Evaluation Comments Posture Comments Posture in standing: Forward head, R shoulder is high, Thoracic spine has mild C- curve with apex on right, L/S is tilted left, R Iliac crest is high, R SIJ is deep, flattened plantar arches, increased lordosis. Palpation Assessment Location R SIJ Palpation Location R SIJ Palpation Findings Tenderness Palpation Details Deep in standing. PT-OP-K Range of Motion Start: 05/04/18 09:46 Freq: Status: Active Protocol: Document 05/31/18 08:16 LRN (Rec: 05/31/18 09:05 LRN [id number]) Hip Goniometric Range of Motion Hip Measured in Degrees Right Passive Testing Position Supine Straight Leg Raise 95 Extension 0 Internal Rotation 10 External Rotation 65 PT-OP-L Special Tests Start: 05/04/18 09:46 Freq: Status: Active Protocol: Document 05/04/18 09:49 LRN (Rec: 05/06/18 15:19 LRN [id number]) Special Tests Hip Special Tests STACIA Test Results Postive Right Hip PT-OP-M Strength Start: 05/04/18 09:46 Freq: Status: Active Protocol: Document 05/04/18 09:49 LRN (Rec: 05/06/18 15:19 LRN [id number]) Hip Strength Hip Manual Muscle Testing Right Flexion (L2) 3+ Fair+ Extension (S1) 3 Fair Abduction 5 Normal Adduction 3 Fair External Rotation 3+ Fair+ Internal Rotation 5 Normal Left Flexion (L2) 5 Normal Extension (S1) 3 Fair Abduction 5 Normal Adduction 5 Normal External Rotation 5 Normal Internal Rotation 5 Normal PT-OP-Q Treatments Start: 05/04/18 09:46 Freq: Status: Active Protocol: Document 05/31/18 08:16 LRN (Rec: 05/31/18 09:05 LRN [id number]) Cardio Equipment Bicycle (Upright) Duration (Minutes) 8 Resistance 3 Seat Position 3 Therapeutic Exercises Supine Exercises PROM R hip Supine Exercise Name PSLR, Hip ER stretch Side right Comments PROM taken Piriformis Stretch Side right Reps/Minutes 2' Comments ROM measurements taken Glut Medius stretch Supine Exercise Name Hip ADD at 90/90, and sidelie hip AD with straight leg Side right Reps/Minutes 4' Glut stretch Supine Exercise Name KTC Side right Reps/Minutes 2' BKFO with T-Band Side bilateral Resistance Lev 2 T-Band Reps/Minutes 30 x Bridges Supine Exercise Name DLS: Bridging Side bilateral Reps/Minutes 15x2 Comments Folded towel x 1 under R foot Manual Therapy Treatment Soft Tissue Mobilization JAMAL stretch Body Location TFL, Glut Med & Max, Piriformis Mobilization Type Oscillations Strumming Intensity/Depth Deep Comments JAMAL stretching: Sidelying R hip AD's Body Location Hip AD's Comments Superficial to deep. Joint Mobilizations Sacral Direction Correcting a R rotated sacrum & R SB Coccyx Body Position Prone Reps/Duration 18' Comments MFR, Sustained pressure. SIJ Body Position Supine Comments Assessed, found symmetrical. Manual Traction Lumbar spine Details Manual traction with straps at pelvis Body Position Supine PT-OP-R Modalities Start: 05/04/18 09:46 Freq: Status: Active Protocol: Document 05/31/18 08:16 LRN (Rec: 05/31/18 16:55 LRN [id number]) Ultrasound Therapy Treatment R upper Glut & Greater Trochanter Treatment Duration (minutes) 8 Patient Position Supine Coupling Medium Ultrasound Gel Applicator Size (cm2) 2 Frequency Setting (mHz) 1 Mode Setting Continuous Duty Cycle 100% Intensity Setting (w/cm2) 1.5 PT-OP-T Assessment and Plan Start: 05/04/18 09:46 Freq: Status: Active Protocol: Document 05/31/18 08:16 LRN (Rec: 05/31/18 09:05 LRN [id number]) Physical Therapy Assessment Goals Four Impairment Asymmetry of pelvis and decreased R hip mobility interrupting sleep Alf Goal (LTG) Pt will be able to sleep through the night without onset of R hip pain. LTG Duration 07/02/18 (05/21/18: Pain GOAL MET, asymmetry variable) Three Impairment Decreased R hip strength Alf Goal (LTG) Pt will be able to resume walking 2 miles/day for her diabetic health care. LTG Duration 07/02/18 (05/31/18: Progressing) Two Impairment R Sciatic Pain with first step rated 7/10 Short Term Goal (STG) Decrease pain onset with gait 50% STG Duration 06/01/18 (05/31/18: Unchanged) Operator Command Support Systems Goal (LTG) Pt will be able to walk without pain onset. LTG Duration 07/02/18 (05/31/18: Unchanged) One Impairment Lacks self care HEP Alf Goal (LTG) Pt will be independent with a self care HEP. LTG Duration 07/02/18 (05/10/18: Progressing) Progress Towards Goals Progress Towards Goals Progressing Toward Goals Progress Comments Goal #1: Progressing HEP. Goal #2: No significant change in pain of the R hip. Goal #3: Progressing hip strength. Pt able to walk dog with only ache felt. Sharp pain with transfer and first steps after prolonged sitting. Goal #4: GOAL MET. Pt is able to sleep through the night intermittently without pain. Assessment Summary Assessment Pt's pelvic obliquity is variable. Pt's pain in R greater trochanter and lateral ankle could be lumbar related . Her general ache in the R hip has lessened overall, but a mild ache rated 2/10, persists. X-ray indicates moderate R hip degeneration. Possible lumbar involvement. The pt appears to want more definitive reasons for her hip pain; therefore I recommend X -ray of lumbar spine to rule out lumbar involvement. The pt may need an orthopedic consult if findings are positive for mechanical changes. 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 Physical Therapy Plan Frequency and Duration Frequency of Treatment 2x/Week Plan of Care Start Date 05/04/18 Plan of Care End Date 07/02/18 Next Visit Focus/Plan Next Note Type Treatment Note Next Visit Plan Assess response to lumbar traction, start with Lumbar traction (pull at pelvis) if positive response. JMT to correct innominates as needed, monitor Sacrum. US and/or STM pain management to decrease muscle tone of R Gluteals/Piriformis. Progress Pelvic/Core stabilization. Assess need for JMT to L5-S1 due to X-ray indication of ? left paraspinal osteophyte at that level.
--- NOTE | 2018-06-03 08:17 | PT.OTN ---
Current Diagnoses Sciatica, right side (06/17/18) Physical Therapy Treatment Note See Pt Care Section for content of session. No formal note entered on this date. All information of treatment on 06/03/2018 is recorded in Patient Care section.
--- NOTE | 2018-06-17 16:14 | PT.OTN ---
Current Diagnoses Sciatica, right side (06/17/18) Physical Therapy Treatment Note PT-OP-A Visit Information Start: 05/04/18 09:46 Freq: Status: Active Protocol: Document 06/17/18 08:18 LRN (Rec: 06/17/18 09:02 LRN [id number]) Out-Patient Physical Therapy Visit Information Visit Information Visit Type Progress Note Visit Start Time 08:18 Visit Stop Time 09:00 Total Visit Minutes 42 Visit Number 11 Number of GOLD NIB GRINDER Visits 0 Evaluation Information Evaluation Date 05/04/18 PT-OP-B Current Condition Start: 05/04/18 09:46 Freq: Status: Active Protocol: Document 05/04/18 09:49 LRN (Rec: 05/04/18 10:06 LRN [id number]) Current Condition History of Current Condition Onset Date 02/22/2018 Current Complaints Deep R postrerio hip pain. R front lower leg pain most History of Current Condition Insidious onset of R Sciatic pain. Hip pain is with standing, the first few steps are shooting pain down the lateral side of the thigh into the front of the lower leg. Deep ache in the R posterior hip. She reports having trouble sleeping, taking GABAPENTIN that she finds helpful. She is waking ~2 times at night and is used to walking 3-4 miles/day, but now only walks a couple miles/day (with her dog). Prior Treatments and Tests None. Treatment Goals Patient/Caregiver Goals Goal is no pain. Prior Functional Status Baseline Function- ADL's Independent Baseline Function- Mobility Independent Baseline Function- Gait Walked 2-3 miles daily. 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 Getting up/down from floor. Functional Limitations- Mobility/Gait Initial step from prolonged positioning is painful. 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 Therapy/Recovery PT-OP-C Subjective Start: 05/04/18 09:46 Freq: Status: Active Protocol: Document 06/17/18 08:18 LRN (Rec: 06/17/18 09:02 LRN [id number]) OP-PT Subjective Patient Comments Patient Comments Traveled alot, went to [place] for a week and did a lot of walking (~4 miles in a day) and felt good until the end. Achy R hip pain (deep in the joint) generally 3-4/10; on initial standing pain is 6/10. When standing too long the hips burn. She reports no increase in pain with walking and that she has returned to walking for her daily health. She is able to sleep through the night, but is not sure if it is the Gabapentin that is allowing it or the therapy that has helped. Patient Reported Progress Improving Patient Questionnaires Oswestry Low Back Index Oswestry Score 13 Oswestry Impairment 1 to 19% Impaired (Score 1-19) OP-PT Pain Assessment Pain Assessment Grid Paper Pain Assessment Grid Completed No Location R hip Pain Location Details Anterior, Posterior, Lateral Intensity 4 Scale Used Numeric (1 - 10) Description Aching Description- Other Pain on initial standing is 6/ 10 PT-OP-F Manual Assessment Start: 05/04/18 09:46 Freq: Status: Active Protocol: Document 06/03/18 08:17 LRN (Rec: 06/03/18 09:36 LRN [id number]) Manual Assessments Soft Tissue Assessment Soft Tissue Mobility Assessment Mild tightness of the upper gluteals bilaterally. Joint Mobility Assessment Joint Mobility Assessment Intermittent R innominate posteriorly rotated with inflare. Other Manual Assessments Other Manual Assessments Leg lengths: Equal PT-OP-H Neuro Start: 05/04/18 09:46 Freq: Status: Active Protocol: Document 05/04/18 09:49 LRN (Rec: 05/06/18 15:19 LRN [id number]) Sensation Evaluation Gross Sensation Gross Sensation WNL Comments Summary Comments Pt reported the past couple days her toes have felt like they have cotton around them. Deep Tendon Reflex & Clonus Assessment Deep Tendon Reflex Bilateral Achilles Deep Tendon Reflex 1+ Diminished Bilateral Patellar Deep Tendon Reflex 2+ Normal PT-OP-J Posture/Palpation/Skin Start: 05/04/18 09:46 Freq: Status: Active Protocol: Document 06/03/18 08:17 LRN (Rec: 06/03/18 09:06 LRN [id number]) Posture Evaluation Comments Posture Comments Posture in standing: Forward head, R shoulder is high, Thoracic spine has mild C- curve with apex on right, L/S is tilted left, R Iliac crest is high, R SIJ is deep, flattened plantar arches, increased lordosis. PT-OP-K Range of Motion Start: 05/04/18 09:46 Freq: Status: Active Protocol: Document 05/31/18 08:16 LRN (Rec: 05/31/18 09:05 LRN [id number]) Hip Goniometric Range of Motion Hip Measured in Degrees Right Passive Testing Position Supine Straight Leg Raise 95 Extension 0 Internal Rotation 10 External Rotation 65 PT-OP-L Special Tests Start: 05/04/18 09:46 Freq: Status: Active Protocol: Document 05/04/18 09:49 LRN (Rec: 05/06/18 15:19 LRN [id number]) Special Tests Hip Special Tests STACIA Test Results Postive Right Hip PT-OP-M Strength Start: 05/04/18 09:46 Freq: Status: Active Protocol: Document 06/03/18 08:17 LRN (Rec: 06/03/18 09:38 LRN [id number]) Hip Strength Hip Manual Muscle Testing Right Flexion (L2) 4 Good Extension (S1) 3 Fair Abduction 4 Good Adduction 5 Normal Left Flexion (L2) 4+ Good+ Extension (S1) 4+ Good+ Abduction 5 Normal Adduction 5 Normal PT-OP-Q Treatments Start: 05/04/18 09:46 Freq: Status: Active Protocol: Document 06/17/18 08:18 LRN (Rec: 06/17/18 09:02 LRN [id number]) Cardio Equipment Bicycle (Upright) Duration (Minutes) 8 Resistance 4 Seat Position 3 Therapeutic Exercises Supine Exercises Iliopsoas stretch Supine Exercise Name Leg over edge of table Side bilateral Reps/Minutes 4' Comments Hip ext immediately following stretch DKTC Supine Exercise Name Stretch Side bilateral Reps/Minutes 2' Hip ADD Supine Exercise Name Stretch Side right Piriformis Stretch Side right Reps/Minutes 2' Glut Medius stretch Supine Exercise Name Hip ADD at 90/90, and sidelie hip AD with straight leg Side right Reps/Minutes 4' Glut stretch Supine Exercise Name KTC Side right Reps/Minutes 2' Standing Exercises Trunk SB Standing Exercise Name R SB - stretch L lateral trunk Reps/Minutes 3' Manual Therapy Treatment Soft Tissue Mobilization Lumbar Paraspinals Body Location L Lumbar paraspinals Mobilization Type Strumming Sustained Pressure Intensity/Depth Moderate Body Position Prone Joint Mobilizations Lumbar Joint L5-S1, L4-L5 Direction R rotation Grade III Body Position Prone Sacral Direction Correcting a R rotated sacrum & R SB Coccyx Body Position Prone Comments MFR, Sustained pressure. SIJ Body Position Supine Comments Assessed, found symmetrical. Manual Traction Lumbar spine Details Manual traction with straps at pelvis Body Position Supine Reps/Duration 8' PT-OP-R Modalities Start: 05/04/18 09:46 Freq: Status: Active Protocol: Document 05/31/18 08:16 LRN (Rec: 05/31/18 16:55 LRN [id number]) Ultrasound Therapy Treatment R upper Glut & Greater Trochanter Treatment Duration (minutes) 8 Patient Position Supine Coupling Medium Ultrasound Gel Applicator Size (cm2) 2 Frequency Setting (mHz) 1 Mode Setting Continuous Duty Cycle 100% Intensity Setting (w/cm2) 1.5 PT-OP-T Assessment and Plan Start: 05/04/18 09:46 Freq: Status: Active Protocol: Document 06/17/18 08:18 LRN (Rec: 06/17/18 09:02 LRN [id number]) Physical Therapy Assessment Rehab Potential Rehabilitation Potential Good Evaluation Complexity Number of Personal Factors/Comorbidities 1-2 Number of Body Systems Impaired 3 Clinical Presentation at Evaluation Evolving Impairments Impairments Activity Tolerance Functional Activities Functional Mobility Gait Pain Posture ROM Strength Other Concerns Age Related Concerns 65+ years old 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 Goals Four Impairment Asymmetry of pelvis and decreased R hip mobility interrupting sleep Halfway Goal (LTG) Pt will be able to sleep through the night without onset of R hip pain. LTG Duration 07/02/18 (05/21/18: Pain GOAL MET, asymmetry variable) Three Impairment Decreased R hip strength Heating Unit Mechanic Goal (LTG) Pt will be able to resume walking 2 miles/day for her diabetic health care. LTG Duration 07/02/18 (06/17/18: GOAL MET) Two Impairment R Sciatic Pain with first step rated 7/10 Short Term Goal (STG) Decrease pain onset with gait 50% STG Duration 06/01/18 (05/31/18: Unchanged) Halfway Goal (LTG) Pt will be able to walk without pain onset. LTG Duration 07/02/18 (05/31/18: Unchanged) One Impairment Lacks self care HEP Halfway Goal (LTG) Pt will be independent with a self care HEP. LTG Duration 07/02/18 (06/17/18: Pt has HEP) Progress Towards Goals Progress Towards Goals Progressing Toward Goals Progress Comments Goal #1: Progressing HEP. Goal #2: No significant change in intensity of pain of the R hip with walking. No sharp pain with walking. Goal #3: Progressing hip strength. GOAL MET for returning to walking for diabetic health. Goal #4: GOAL MET. Pt is on Gabapentin. Assessment Summary Assessment The pt has had elimination of sharp pain in her R hip but she continues to have a mild ache pain in the R hip that is variable in intensity and onset. Today she rates her pain as 4/10 as the low level of pain and 6/10 at its worst. Her pelvic obliquity is variable but appears stable for the last 2 visits. She demonstrates a lateral shift of her trunk and her subjective reports of burning pain in both hips at times may indicate possible lumbar involvement. The pt felt some relief of pain with manual lumbar traction that did not appear to have lasting effects , but overall left her with a feeling of greater hip mobility. I recommend X-ray of lumbar spine to rule out lumbar involvement since the pt is wanting a more definitive reason for her pain . An orthopedic consult would be appropriate since there has been very little change in pain upon standing. Further skilled physical therapy for core and pelvic stabilization and LE and lumbar ROM & strengthening to minimize her pain onset and maximize her activity tolerance for her work with her spouse would be appropriate until she is able to be seen by an orthopedic physician. Physical Therapy Plan Frequency and Duration Frequency of Treatment 2x/Week Plan of Care Start Date 06/03/18 Plan of Care End Date 08/27/18 Therapeutic Interventions Therapeutic Interventions Balance Training Coordination Training Gait Training Home Exercise Program Joint Mobilizations Manual Therapy Neuromuscular Re-education Patient/Caregiver Education Self-Care/Home Management Soft Tissue Mobilization Taping Therapeutic Activities Therapeutic Exercises Modalities Cold Pack/Ice Massage Electric Stimulation Hot Packs Traction- Mechanical Other Referrals/Consults Referrals/Consults Recommended Orthopedic consult Next Visit Focus/Plan Next Note Type Treatment Note Next Visit Plan Cont with manual lumbar traction in sitting before standing to enter PT, followed by: Bike warm up, hip stretches, Lumbar traction, pelvic/lumbar stabilization adding hip strengthening at cable column. JMT to correct innominates as needed, monitor Sacrum. STM pain management to decrease muscle tone of R Gluteals/Piriformis. Assess need for JMT to L5-S1 due to X -ray indication of L paraspinal osteophyte at that level. HEP: Hip strengthening
--- NOTE | 2018-06-24 14:15 | PT.OTN ---
Current Diagnoses Sciatica, right side (06/24/18) Physical Therapy Treatment Note PT-OP-A Visit Information Start: 05/04/18 09:46 Freq: Status: Active Protocol: Document 06/24/18 08:19 LRN (Rec: 06/24/18 09:05 LRN [id number]) Out-Patient Physical Therapy Visit Information Visit Information Visit Type Progress Note Visit Start Time 08:18 Visit Stop Time 09:15 Total Visit Minutes 57 Visit Number 12 Number of TAPE RECORDER MECHANIC Visits 0 Evaluation Information Evaluation Date 05/04/18 PT-OP-B Current Condition Start: 05/04/18 09:46 Freq: Status: Active Protocol: Document 05/04/18 09:49 LRN (Rec: 05/04/18 10:06 LRN [id number]) Current Condition History of Current Condition Onset Date 02/22/2018 Current Complaints Deep R postrerio hip pain. R front lower leg pain most History of Current Condition Insidious onset of R Sciatic pain. Hip pain is with standing, the first few steps are shooting pain down the lateral side of the thigh into the front of the lower leg. Deep ache in the R posterior hip. She reports having trouble sleeping, taking GABAPENTIN that she finds helpful. She is waking ~2 times at night and is used to walking 3-4 miles/day, but now only walks a couple miles/day (with her dog). Prior Treatments and Tests None. Treatment Goals Patient/Caregiver Goals Goal is no pain. Prior Functional Status Baseline Function- ADL's Independent Baseline Function- Mobility Independent Baseline Function- Gait Walked 2-3 miles daily. 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 Getting up/down from floor. Functional Limitations- Mobility/Gait Initial step from prolonged positioning is painful. 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 Seeing Dr. Mary Jane Jaquez tomorrow for consult. Still working, has been landscaping. Patient Reported Progress Same PT-OP-F Manual Assessment Start: 05/04/18 09:46 Freq: Status: Active Protocol: Document 06/03/18 08:17 LRN (Rec: 06/03/18 09:36 LRN [id number]) Manual Assessments Soft Tissue Assessment Soft Tissue Mobility Assessment Mild tightness of the upper gluteals bilaterally. Joint Mobility Assessment Joint Mobility Assessment Intermittent R innominate posteriorly rotated with inflare. Other Manual Assessments Other Manual Assessments Leg lengths: Equal PT-OP-H Neuro Start: 05/04/18 09:46 Freq: Status: Active Protocol: Document 05/04/18 09:49 LRN (Rec: 05/06/18 15:19 LRN [id number]) Sensation Evaluation Gross Sensation Gross Sensation WNL Comments Summary Comments Pt reported the past couple days her toes have felt like they have cotton around them. Deep Tendon Reflex & Clonus Assessment Deep Tendon Reflex Bilateral Achilles Deep Tendon Reflex 1+ Diminished Bilateral Patellar Deep Tendon Reflex 2+ Normal PT-OP-J Posture/Palpation/Skin Start: 05/04/18 09:46 Freq: Status: Active Protocol: Document 06/03/18 08:17 LRN (Rec: 06/03/18 09:06 LRN [id number]) Posture Evaluation Comments Posture Comments Posture in standing: Forward head, R shoulder is high, Thoracic spine has mild C- curve with apex on right, L/S is tilted left, R Iliac crest is high, R SIJ is deep, flattened plantar arches, increased lordosis. PT-OP-K Range of Motion Start: 05/04/18 09:46 Freq: Status: Active Protocol: Document 05/31/18 08:16 LRN (Rec: 05/31/18 09:05 LRN [id number]) Hip Goniometric Range of Motion Hip Measured in Degrees Right Passive Testing Position Supine Straight Leg Raise 95 Extension 0 Internal Rotation 10 External Rotation 65 PT-OP-L Special Tests Start: 05/04/18 09:46 Freq: Status: Active Protocol: Document 05/04/18 09:49 LRN (Rec: 05/06/18 15:19 LRN [id number]) Special Tests Hip Special Tests STACIA Test Results Postive Right Hip PT-OP-M Strength Start: 05/04/18 09:46 Freq: Status: Active Protocol: Document 06/03/18 08:17 LRN (Rec: 06/03/18 09:38 LRN [id number]) Hip Strength Hip Manual Muscle Testing Right Flexion (L2) 4 Good Extension (S1) 3 Fair Abduction 4 Good Adduction 5 Normal Left Flexion (L2) 4+ Good+ Extension (S1) 4+ Good+ Abduction 5 Normal Adduction 5 Normal PT-OP-Q Treatments Start: 05/04/18 09:46 Freq: Status: Active Protocol: Document 06/24/18 08:19 LRN (Rec: 06/24/18 09:05 LRN [id number]) Cardio Equipment Bicycle (Upright) Duration (Minutes) 8 Resistance 4 Seat Position 3 Gym Equipment Cable Column (Body Solid) Hip Abduction Details Hole 5, Seat 1 Resistance 20# Reps/Time 15 x 2 Hip Adduction Details Hole 3m, Seat 1 Resistance 30# Reps/Time 15x 2 Leg Curl Details Seat- 5 holes Resistance 30# Reps/Time 15x2 Leg Extension Details Seat- 5 holes Resistance 20#, 10# Reps/Time 15x each Shuttle Recovery Bilateral Squats Resistance 62# Shuttle Recovery Platform Stable Reps/Time 10x3 Therapeutic Exercises Supine Exercises Iliopsoas stretch Supine Exercise Name Leg over edge of table, C/R Side bilateral Reps/Minutes 4' Comments Hip ext immediately following stretch Hip ADD Supine Exercise Name Stretch Side right Piriformis Stretch Side right Reps/Minutes 2' Manual Therapy Treatment Soft Tissue Mobilization Lumbar Paraspinals Body Location L Lumbar paraspinals Mobilization Type Strumming Sustained Pressure Intensity/Depth Moderate Body Position Prone Joint Mobilizations Sacral Direction Correcting a R rotated sacrum & R SB Coccyx Body Position Prone Comments MFR, Sustained pressure. Manual Traction Lumbar spine Details Manual traction with straps at pelvis Body Position Supine Reps/Duration 8' PT-OP-R Modalities Start: 05/04/18 09:46 Freq: Status: Active Protocol: Document 06/24/18 08:19 LRN (Rec: 06/24/18 14:14 LRN [id number]) Hot Pack/Cold Pack Treatment Cold Pack Location R hip joint Patient Position Sitting Treatment Duration (minutes) 10 Patient Tolerance Good Comments Pt had R hip pain on initial standing after use of cryotherapy. PT-OP-T Assessment and Plan Start: 05/04/18 09:46 Freq: Status: Active Protocol: Document 06/24/18 08:19 LRN (Rec: 06/24/18 09:05 LRN [id number]) Physical Therapy Assessment Assessment Summary Assessment No sharp pain but she continues to have a mild ache pain in the R hip with first standing after prolonged sitting, even after use of cryotherapy. No pelvic obliquity noted. She demonstrates a lateral shift of her trunk and her subjective reports of burning pain in both hips at times may indicate possible lumnbar involvement. No pain with manual lumbar traction today. Pt seeing orthopedic MD tomorrow for assessment. Physical Therapy Plan Frequency and Duration Frequency of Treatment 2x/Week Plan of Care Start Date 06/03/18 Plan of Care End Date 08/27/18 Next Visit Focus/Plan Next Note Type Treatment Note Next Visit Plan Pt to see Orthopedist tomorrow . PT will call to discuss visit outcome and continuation of PT possibility. If pt returns, cont with Bike warm up, hip stretches, Lumbar traction, pelvic/lumbar stabilization adding hip strengthening at cable column. JMT to correct innominates as needed, monitor Sacrum. STM pain management to decrease muscle tone of R Gluteals/ Piriformis. Can start JMT to L5-S1 due to X-ray indication of L paraspinal osteophyte at that level. HEP: Hip strengthening
--- NOTE | 2018-06-29 08:53 | PT.OPDS ---
Current Diagnoses Sciatica, right side (06/24/18) Provider Visit Care Team Role Provider Type Giselle Moreno PA-C Attending Provider Advanced Mail Carrier Technician Primary Care Provider Specialty: Internal Medicine Address: [address] [place] [address], [facility] Email: Visit Number Visit Number 12 Discharge Summary PT-OP-B Current Condition Start: 05/04/18 09:46 Freq: Status: Active Protocol: Document 05/04/18 09:49 LRN (Rec: 05/04/18 10:06 LRN [id number]) Current Condition History of Current Condition Onset Date 02/22/2018 Current Complaints Deep R postrerio hip pain. R front lower leg pain most History of Current Condition Insidious onset of R Sciatic pain. Hip pain is with standing, the first few steps are shooting pain down the lateral side of the thigh into the front of the lower leg. Deep ache in the R posterior hip. She reports having trouble sleeping, taking GABAPENTIN that she finds helpful. She is waking ~2 times at night and is used to walking 3-4 miles/day, but now only walks a couple miles/day (with her dog). Prior Treatments and Tests None. Treatment Goals Patient/Caregiver Goals Goal is no pain. Prior Functional Status Baseline Function- ADL's Independent Baseline Function- Mobility Independent Baseline Function- Gait Walked 2-3 miles daily. 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 Getting up/down from floor. Functional Limitations- Mobility/Gait Initial step from prolonged positioning is painful. 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 Seeing Dr. Mary Jane Jaquez tomorrow for consult. Still working, has been landscaping. Patient Reported Progress Same PT-OP-F Manual Assessment Start: 05/04/18 09:46 Freq: Status: Active Protocol: Document 03/07/19 08:17 LRN (Rec: 03/07/19 09:36 LRN [id number]) Manual Assessments Soft Tissue Assessment Soft Tissue Mobility Assessment Mild tightness of the upper gluteals bilaterally. Joint Mobility Assessment Joint Mobility Assessment Intermittent R innominate posteriorly rotated with inflare. Other Manual Assessments Other Manual Assessments Leg lengths: Equal PT-OP-H Neuro Start: 05/04/18 09:46 Freq: Status: Active Protocol: Document 05/04/18 09:49 LRN (Rec: 05/06/18 15:19 LRN [id number]) Sensation Evaluation Gross Sensation Gross Sensation WNL Comments Summary Comments Pt reported the past couple days her toes have felt like they have cotton around them. Deep Tendon Reflex & Clonus Assessment Deep Tendon Reflex Bilateral Achilles Deep Tendon Reflex 1+ Diminished Bilateral Patellar Deep Tendon Reflex 2+ Normal PT-OP-J Posture/Palpation/Skin Start: 05/04/18 09:46 Freq: Status: Active Protocol: Document 06/03/18 08:17 LRN (Rec: 06/03/18 09:06 LRN [id number]) Posture Evaluation Comments Posture Comments Posture in standing: Forward head, R shoulder is high, Thoracic spine has mild C- curve with apex on right, L/S is tilted left, R Iliac crest is high, R SIJ is deep, flattened plantar arches, increased lordosis. PT-OP-K Range of Motion Start: 05/04/18 09:46 Freq: Status: Active Protocol: Document 05/31/18 08:16 LRN (Rec: 05/31/18 09:05 LRN [id number]) Hip Goniometric Range of Motion Hip Right Passive Testing Position Supine Straight Leg Raise 95 Extension 0 Internal Rotation 10 External Rotation 65 PT-OP-L Special Tests Start: 05/04/18 09:46 Freq: Status: Active Protocol: Document 05/04/18 09:49 LRN (Rec: 05/06/18 15:19 LRN [id number]) Special Tests Hip Special Tests STACIA Test Results Postive Right Hip PT-OP-M Strength Start: 05/04/18 09:46 Freq: Status: Active Protocol: Document 06/03/18 08:17 LRN (Rec: 06/03/18 09:38 LRN [id number]) Hip Strength Hip Manual Muscle Testing Right Flexion (L2) 4 Good Extension (S1) 3 Fair Abduction 4 Good Adduction 5 Normal Left Flexion (L2) 4+ Good+ Extension (S1) 4+ Good+ Abduction 5 Normal Adduction 5 Normal PT-OP-T Assessment and Plan Start: 05/04/18 09:46 Freq: Status: Active Protocol: Document 06/29/18 16:27 LRN (Rec: 08/10/18 16:31 LRN [id number]) Physical Therapy Assessment Progress Towards Goals Progress Towards Goals Progressing Toward Goals Progress Comments Goal #1: Progressing HEP. Goal #2: No significant change in intensity of pain of the R hip with walking. No sharp pain with walking. Goal #3: Progressing hip strength. GOAL MET for returning to walking for diabetic health. Goal #4: GOAL MET. Pt is on Gabapentin. Physical Therapy Plan Discharge Physical Therapy Discharge Reasons Patient Request Discharge Comments Pt left a message requesting D /C due to possible hip surgery .
--- NOTE | 2018-08-10 16:31 | PT.OPDS ---
Current Diagnoses Sciatica, right side (06/24/18) Provider Visit Care Team Role Provider Type Giselle Moreno PA-C Attending Provider Advanced Trimmer Operator Three Knife Primary Care Provider Specialty: Internal Medicine Address: [address] [place] [address], [facility] Email: Visit Number Visit Number 12 Discharge Summary PT-OP-B Current Condition Start: 05/04/18 09:46 Freq: Status: Active Protocol: Document 05/04/18 09:49 LRN (Rec: 05/04/18 10:06 LRN [id number]) Current Condition History of Current Condition Onset Date 02/22/2018 Current Complaints Deep R postrerio hip pain. R front lower leg pain most History of Current Condition Insidious onset of R Sciatic pain. Hip pain is with standing, the first few steps are shooting pain down the lateral side of the thigh into the front of the lower leg. Deep ache in the R posterior hip. She reports having trouble sleeping, taking GABAPENTIN that she finds helpful. She is waking ~2 times at night and is used to walking 3-4 miles/day, but now only walks a couple miles/day (with her dog). Prior Treatments and Tests None. Treatment Goals Patient/Caregiver Goals Goal is no pain. Prior Functional Status Baseline Function- ADL's Independent Baseline Function- Mobility Independent Baseline Function- Gait Walked 2-3 miles daily. 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 Getting up/down from floor. Functional Limitations- Mobility/Gait Initial step from prolonged positioning is painful. 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 Therapy/Recovery PT-OP-T Assessment and Plan Start: 05/04/18 09:46 Freq: Status: Active Protocol: Document 06/29/18 16:27 LRN (Rec: 08/10/18 16:31 LRN [id number]) Physical Therapy Assessment Progress Towards Goals Progress Towards Goals Progressing Toward Goals Progress Comments Goal #1: Progressing HEP. Goal #2: No significant change in intensity of pain of the R hip with walking. No sharp pain with walking. Goal #3: Progressing hip strength. GOAL MET for returning to walking for diabetic health. Goal #4: GOAL MET. Pt is on Gabapentin. Physical Therapy Plan Discharge Physical Therapy Discharge Reasons Patient Request Discharge Comments Pt left a message requesting D /C due to possible hip surgery .
== END 2018-06-24 13:53 ==
LOC: PHYS 08:15
PROVIDERS: PCP Physician Assistant; Visit Provider Physician Assistant
DX: M54.31 Sciatica, right side (principal)
CPT/HCPCS: 97035; 97110; 97140; 97162; 97530; 97535

== ENCOUNTER → 2019-03-26 09:06 | Outpatient (CLI) | payer MEDICARE, OTHER, SELFPAY ==
--- NOTE | 2019-03-26 | DI.MG.S_ITS ---
BILATERAL DIGITAL SCREENING MAMMOGRAM 3D/2D WITH CAD: 03/26/2019 CLINICAL: Routine screening. Comparison is made to exams dated: 03/16/2017 mammogram, 04/13/2015 mammogram, and 03/15/2014 mammogram - [facility]. There are scattered fibroglandular elements in both breasts. Current study was also evaluated with a Computer Aided Detection (CAD) system. No significant masses, calcifications, or other findings are seen in either breast. There has been no significant interval change. IMPRESSION: NEGATIVE There is no mammographic evidence of malignancy. A 1 year screening mammogram is recommended. This exam was interpreted at Station ID: [id number]. NOTE: For mammograms, a report in lay terms will be sent to the patient. Approximately 15% of breast malignancies will not be visualized mammographically. In the management of a palpable breast mass, a negative mammogram must not discourage biopsy of a clinically suspicious lesion. Electronically Signed By: Amado apodaca/parish:03/28/2019 08:28:02 letter sent: Normal Exam ACR BI-RADS Category 1: Negative [id number]
== END ==
PROVIDERS: PCP Physician Assistant; Visit Provider Physician Assistant
DX: Z12.31 Encounter for screening mammogram for malignant neoplasm of breast (principal)
CPT/HCPCS: 77063; 77067

== ENCOUNTER → 2019-04-28 14:45 | Outpatient (ROUT) | payer MEDICARE, OTHER, SELFPAY ==
[2019-04-28 14:53] LABS: Add Manual Diff / Slide Review NO; Basophils Absolute Auto 0 /uL (0-100); Basophils Percent Auto 0.8 % (0-2); Eosinophils Absolute Auto 200 /uL (0-450); Eosinophils Percent Auto 3.7 % (2-4); Hematocrit 42.1 % (36-46); Lymphocytes Absolute Auto 1600 /uL (1100-4500); Lymphocytes Percent Auto 26.4 % (25-40); Mean Corpuscular HGB Conc 33.1 % (30-36); Mean Corpuscular Hemoglobin 32.3 PG (26-34); Mean Corpuscular Volume 97.7 fL (80-100); Monocytes Absolute Auto 700 /uL (0-900); Monocytes Percent Auto 11.9 % (3-14); Neutrophils Absolute Auto 3500 /uL (1500-7000); Neutrophils Percent Auto 57.2 % (50-75); Platelet Count 168 X10^3/uL (150-400); Red Blood Cell Count 4.31 X10^6/uL (4.0-5.2); Red Cell Distribution Width 13.3 % (11.6-14.8); White Blood Cell Count 6.1 X10^3/uL (4.5-11.0)
[2019-04-28 15:06] LABS: Hemoglobin A1C% w Est Avg Glu 6.6 % (4.0-6.0)
[2019-04-28 15:58] LABS: Alanine Aminotransferase 37 IU/L (<35); Albumin 4.4 g/dL (3.5-5.0); Albumin Globulin Ratio 1.4 (1.0-2.8); Alkaline Phosphatase 86 U/L (38-126); Aspartate Aminotransferase 41 IU/L (14-36); BUN Creatinine Ratio 33.3 (6-22); Bilirubin Total 0.5 mg/dL (0.2-1.3); Blood Urea Nitrogen 20 mg/dL (7-17); Calcium 9.9 mg/dL (8.4-10.2); Carbon Dioxide 28 mmol/L (22-32); Chloride 103 mmol/L (98-107); Cholesterol 209 mg/dL (140-199); Estimated Glomerular Filt Rate > 60.0 mL/min (>60); Globulin 3.1 g/dL (1.7-4.1); Glucose 91 mg/dL (80-110); HDL Cholesterol 37 mg/dL (40-60); HEMOLYSIS < 15 (0-50); LDL Cholesterol Calculated 131 mg/dL (<100); Potassium 4.4 mmol/L (3.4-5.1); Sodium 140 mmol/L (137-145); Total Protein 7.5 g/dL (6.3-8.2); Triglycerides 203 mg/dL (35-150)
[2019-04-28 16:09] LABS: Vitamin D 25 Hydroxy (D3) 31.1 ng/mL (30.0-100.0)
== END ==
PROVIDERS: PCP Physician Assistant; Visit Provider Physician Assistant
DX: E11.9 Type 2 diabetes mellitus without complications (principal); E78.5 Hyperlipidemia, unspecified; E55.9 Vitamin D deficiency, unspecified
CPT/HCPCS: 80053; 80061; 82306; 83036; 85025

== ENCOUNTER → 2019-06-09 12:27 | Outpatient (ROUT) | payer MEDICARE, OTHER, SELFPAY ==
[2019-06-09 13:25] LABS: Alanine Aminotransferase 27 IU/L (<35); Albumin 4.5 g/dL (3.5-5.0); Albumin Globulin Ratio 1.4 (1.0-2.8); Alkaline Phosphatase 89 U/L (38-126); Aspartate Aminotransferase 38 IU/L (14-36); BUN Creatinine Ratio 32.3 (6-22); Bilirubin Total 0.5 mg/dL (0.2-1.3); Blood Urea Nitrogen 21 mg/dL (7-17); Calcium 9.5 mg/dL (8.4-10.2); Carbon Dioxide 26 mmol/L (22-32); Chloride 105 mmol/L (98-107); Cholesterol 150 mg/dL (140-199); Estimated Glomerular Filt Rate > 60.0 mL/min (>60); Globulin 3.2 g/dL (1.7-4.1); Glucose 131 mg/dL (80-110); HDL Cholesterol 29 mg/dL (40-60); HEMOLYSIS < 15 (0-50); LDL Cholesterol Calculated 85 mg/dL (<100); Potassium 4.4 mmol/L (3.4-5.1); Sodium 140 mmol/L (137-145); Total Protein 7.7 g/dL (6.3-8.2); Triglycerides 180 mg/dL (35-150)
== END ==
PROVIDERS: PCP Physician Assistant; Visit Provider Physician Assistant
DX: E78.5 Hyperlipidemia, unspecified (principal)
CPT/HCPCS: 80053; 80061

== ENCOUNTER → 2020-04-25 10:41 | Outpatient (CLI) | payer OTHER, SELFPAY ==
--- NOTE | 2020-04-25 | DI.MG.S_ITS ---
BILATERAL DIGITAL SCREENING MAMMOGRAM 3D/2D WITH CAD: 04/25/2020 CLINICAL: Routine screening. Comparison is made to exams dated: 03/26/2019 mammogram, 03/16/2017 mammogram, and 04/13/2015 mammogram - [facility]. There are scattered fibroglandular elements in both breasts. Current study was also evaluated with a Computer Aided Detection (CAD) system. No significant masses, calcifications, or other findings are seen in either breast. There has been no significant interval change. IMPRESSION: NEGATIVE There is no mammographic evidence of malignancy. A 1 year screening mammogram is recommended. This exam was interpreted at Station ID: [id number]. NOTE: For mammograms, a report in lay terms will be sent to the patient. Approximately 15% of breast malignancies will not be visualized mammographically. In the management of a palpable breast mass, a negative mammogram must not discourage biopsy of a clinically suspicious lesion. Electronically Signed By: Selvin Martins M.D., jr/parish:04/25/2020 11:22:16 letter sent: Normal Exam ACR BI-RADS Category 1: Negative [id number]
== END ==
PROVIDERS: PCP Physician Assistant; Referring Provider Physician Assistant; Visit Provider Physician Assistant
DX: Z12.31 Encounter for screening mammogram for malignant neoplasm of breast (principal)
CPT/HCPCS: 77063; 77067

== ENCOUNTER 2020-05-15 09:31 | Emergency (ER) | payer OTHER, SELFPAY ==
[2020-05-15 09:35] VITALS: BP 168/74; PULSE 65; RESP 16; TEMP 36.7; O2SAT 99
--- NOTE | 2020-05-15 09:48 | DI.RAD.S_ITS ---
PROCEDURE: XR CHEST 2V INDICATIONS: pain under left axilla TECHNIQUE: 2 views of the chest were acquired. COMPARISON: None. FINDINGS: Surgical changes and devices: None. Scattered subsegmental atelectasis and/or scarring. No focal consolidation. No pleural effusions or pneumothorax. Mediastinum: Mediastinal contours are normal. Heart size is normal. Bones and chest wall: No suspicious bony abnormalities. Soft tissues appear unremarkable. IMPRESSION: Scattered subsegmental atelectasis and/or scarring. No focal consolidation. If left axillary pain persists, consider further evaluation with focused ultrasound. Dictated by: Sky Solis M.D. on 05/15/2020 at 10:31 Approved by: Sky Solis M.D. on 05/15/2020 at 10:32
--- NOTE | 2020-05-15 10:46 | DI.US.S_ITS ---
ULTRASOUND OF LEFT BREAST: 05/15/2020 CLINICAL: Focal left breast pain. Comparison is made to exams dated: 04/25/2020 mammogram, 03/26/2019 mammogram, 09/03/2017 ultrasound, 03/16/2017 mammogram, 04/13/2015 mammogram, and 09/27/2014 mammogram - [facility]. Real-time and Doppler ultrasound of the left breast were performed. No significant abnormalities were seen sonographically in the left breast. IMPRESSION: NEGATIVE There is no sonographic evidence of malignancy. Follow up clinically. Return to annual mammogram screening schedule is recommended. Future imaging is recommended as follows: 04/26/2021 screening mammogram. This exam was interpreted at Station ID: [id number]. Electronically Signed By: Dimitry Bojorquez acr/:05/15/2020 11:27:07 letter sent: Clinical Evaluation Ultrasound BI-RADS: 1 Negative
--- NOTE | 2020-05-15 11:21 | ED.RECABL ---
HPI - Recheck/Abnormal Lab/Rx <NILESH Hassan - Last Filed: 05/15/20 17:52> General Chief Complaint: Recheck/Abnormal Lab/Rx Stated Complaint: left underarm breast pain x6 weeks Time Seen by Provider: 05/15/20 10:37 Source: patient Mode of arrival: Ambulatory Limitations: no limitations History of Present Illness HPI narrative: This is an 75 year female nonsmoker, who has history of diabetes presents to ED with chief complain of intermittent left-sided lateral breast, near axillary pain for last 2 months. She is concerned for breast cancer. Patient denies previous history of breast cancer, breast reduction, or augmentation. Patient denies history of breast cancer. Patient denies warmth, swelling, redness on the site. Patient denies fever, chills, nausea, vomiting, lymph node pain. Patient denies malaise, fatigue, unintentional weight loss. Patient denies chest pain, unusual cough, hemoptysis. She had negative routine mammogram 2 weeks ago. She had appointment with PCP today and found out the clinic is not excepting patient's current medical insurance so she is here. Related Data Allergies Allergy/AdvReac Type Severity Reaction Status Date / Time No Known Drug Allergies Allergy Verified 05/15/20 09:47 Review of Systems <NILESH Hassan - Last Filed: 05/15/20 17:52> Review of Systems Narrative: General: Denies fever, chills, fatigue, malaise, sweats. HEENT: Denies sinus pain, ear pain, sore throat, difficulty swallowing, dizziness. Respiratory: Denies dyspnea, cough, wheezing, hemoptysis, sputum. Cardiovascular: Denies chest pain, palpitations, orthopnea, edema. Gastrointestinal: Denies nausea, vomiting, abdominal pain, diarrhea, constipation, melena. : Denies dysuria, frequency, incontinence, hematuria, urinary retention. Musculoskeletal: See HPI Skin: See HPI Neurologic: Denies weakness, headache, numbness, change in speech, confusion, seizures, incoordination. Psychiatric: No concerning psychosocial issues. 12-point review of systems is negative except for those stated above. Patient History <NLIESH Hassan - Last Filed: 05/15/20 17:52> Medical History Diabetes Social History Smoking Status: Never smoker Smoking Status: Never smoker alcohol intake frequency: 0-2 drinks per day Substance Use Type: does not use Exam <NILESH Hassan - Last Filed: 05/15/20 17:52> Narrative Exam Narrative: General appearance: well developed, well nourished, in no acute distress. Head: normocephalic, atraumatic, no scalp lesions, non-tender. ENT: Hearing grossly intact. Nose without bleeding, purulent discharge, septal hematoma or deviation. Airway patent. Neck/Thyroid: neck supple, full range of motion, no visible masses or meningeal signs. No JVD, non-tender without lymphadenopathy. Skin: no suspicious rashes, lesions over visible areas. Warm and dry and appropriate color for ethnicity. Heart: no clubbing, no cyanosis, no edema. S1 and S2 normal. RRR w/o murmurs, clicks, or bruits. Lungs: Breathing even and unlabored. No stridor. No accessory muscles used. Able to speak in full sentences. Chest: normal shape and expansion. Tender to palpate in lateral breast, 12 cm away from nipple at 3 o'clock. No warmth, swelling, redness appreciated. Abdomen: non-obese, non-distended. Neurologic: alert and oriented. Cognitive exam, MOTION PICTURE CAMERA LENS TECHNICIAN and PNS grossly intact on informal exam. Psych: good eye contact, normal affect. Initial Vital Signs Initial Vital Signs: Vital Signs Temperature 98.1 F 05/15/20 09:35 Pulse Rate 65 05/15/20 09:35 Respiratory Rate 16 05/15/20 09:35 Blood Pressure 168/74 H 05/15/20 09:35 Pulse Oximetry 99 05/15/20 09:35 <Amaury Welsh DO - Last Filed: 05/15/20 20:59> Initial Vital Signs Initial Vital Signs: Vital Signs Temperature 98.1 F 05/15/20 09:35 Pulse Rate 65 05/15/20 09:35 Respiratory Rate 16 05/15/20 09:35 Blood Pressure 168/74 H 05/15/20 09:35 Pulse Oximetry 99 05/15/20 09:35 Scores <NILESH Hassan - Last Filed: 05/15/20 17:52> GCS Cezar coma scale eye opening: Spontaneous Cezar coma scale verbal response: Orientated Cezar coma scale motor response: Obey commands [place] coma scale total score: 15 qSOFA Altered Mental Status (GCS <15): No Respiratory rate greater than/equal to 22: No Systolic blood pressure less than or equal to 100: No qSOFA Total: 0 0-1 Not High Risk 1-3 High risk Course <NILESH Hassan - Last Filed: 05/15/20 17:52> Orders Ordered: ED Orders 05/15/20 09:48 XR chest 2V Stat EKG-12 Lead Stat 05/15/20 10:46 US breast LT limited Stat Vital Signs Vital signs: Vital Signs - 8 hr 05/15/20 12:14 Pulse Rate 60 Respiratory Rate 20 Blood Pressure 131/61 Pulse Oximetry 100 <Amaury Welsh DO - Last Filed: 05/15/20 20:59> Orders Ordered: ED Orders 05/15/20 09:48 XR chest 2V Stat EKG-12 Lead Stat 05/15/20 10:46 US breast LT limited Stat Vital Signs Vital signs: Vital Signs - 8 hr 05/15/20 12:14 Pulse Rate 60 Respiratory Rate 20 Blood Pressure 131/61 Pulse Oximetry 100 MDM - Recheck/Abnormal Lab/Rx <NILESH Hassan - Last Filed: 05/15/20 17:52> Differential Diagnosis Differential diagnosis: Likely other (Breast lesion/mass/tumor, abscess, fibrotic breast tissue) Medical Records Attestation: I reviewed the patient's medical records. Imaging Data US-Breast: Radiologist's Impression: [address] [id number] ReportSigned Patient: Angy Tovar [facility]#: [id number]: 5Acct:[id number]/Sex: 75 / FDate of Service: 05/15/20Loc: EDAccession Number: [id number] Procedure: US breast LT limited Ordering Provider: Nathen Christiansen ULTRASOUND OF LEFT BREAST: 05/15/2020 CLINICAL: Focal left breast pain. Comparison is made to exams dated: 04/25/2020 mammogram, 03/26/2019 mammogram, 09/03/2017 ultrasound, 03/16/2017 mammogram, 04/13/2015 mammogram, and 09/27/2014 mammogram - [facility]. Real-time and Doppler ultrasound of the left breast were performed. No significant abnormalities were seen sonographically in the left breast. IMPRESSION: NEGATIVE There is no sonographic evidence of malignancy. Follow up clinically. Return to annual mammogram screening schedule is recommended. Future imaging is recommended as follows: 04/26/2021 screening mammogram. This exam was interpreted at Station ID: [id number]. Electronically Signed By: Dimitry Bojorquez acr/:05/15/2020 11:27:07 letter sent: Clinical Evaluation Ultrasound BI-RADS: 1 Negative Chest x-ray: Radiologist's Impression: [address] [id number] ReportSigned Patient: Angy Tovar MMR#: [id number]: 5Acct:[id number]/Sex: 75 / FDate of Service: 05/15/20Loc: EDAccession Number: [id number] Procedure: XR chest 2V Ordering Provider: Abril Magallanes D.O. PROCEDURE: XR CHEST 2V INDICATIONS: pain under left axilla TECHNIQUE: 2 views of the chest were acquired. COMPARISON: None. FINDINGS: Surgical changes and devices: None. Scattered subsegmental atelectasis and/or scarring. No focal consolidation. No pleural effusions or pneumothorax. Mediastinum: Mediastinal contours are normal. Heart size is normal. Bones and chest wall: No suspicious bony abnormalities. Soft tissues appear unremarkable. IMPRESSION: Scattered subsegmental atelectasis and/or scarring. No focal consolidation. If left axillary pain persists, consider further evaluation with focused ultrasound. Dictated by: Sky Solis M.D. on 05/15/2020 at 10:31 Approved by: Sky Solis M.D. on 05/15/2020 at 10:32 ECG Data Attestation: I personally reviewed and interpreted this ECG as follows: Prior ECG tracings: not available for review Interpretation: Normal sinus rhythm rate at 63. Left deviated axis. SD interval 166, QRS duration 106, QT/QTC 472/[address], T wave abnormality MDM Narrative Medical decision making narrative: This is a 75 year female who presents to ED with chief complain of focalized left lateral breast pain to palpate without redness, swelling, nodules to palpate for last 2 months and patient is concerned for breast cancer. Patient has no self or family history of breast cancer. Patient does not endorses constitutional symptoms or recent weight loss. She denies axilla lymph node swelling or pain. Otherwise patient has been in normal health state. Patient had normal mammogram test on 04/25/20. She is here since her PCP office dropped her medical insurance and is now have to reestablish PCP and did not want to wait too long for this. Chest x-ray was negative for acute findings. Ultrasound of left breast without acute findings. EKG without acute ST changes with prolonged QT abnormality. Findings shared with patient and assured. Return precautions discussed with patient and she verbalized understanding in agreement with the treatment plan. Discharge Plan Departure Patient Disposition: Home Clinical Impression: Breast pain, left Instructions: DI for Breast Pain (Mastalgia) Activity Restrictions/Additional Instructions: You have been diagnosed with [left lateral breast tenderness. No indications for tumor, lesion. Chest x-ray unremarkable. Mild EKG shows nonspecific ST and T wave abnormality]. What to do: *Take your medications as directed. Please take [id number] Tylenol and or Motrin as needed for discomfort. Warm pack on affected site for comfort. *Follow up with your primary care provider in 2-3 days, call for an appointment. Let them know you were seen in the ED and that we asked you to be seen in follow up. *Return to ED if you have any new, worsening, or concerning symptoms, such as [worsening pain, redness, swelling, drainage, lymph node swelling, fever, chest pain, breathing difficulty, or any acute concerns]. Referrals: [facility] [Outside] Giselle Moreno PA-C [Primary Care Provider] - <Amaury Welsh DO - Last Filed: 05/15/20 20:59> Cosign ED Attending Andreaature Attestation: Dr Welsh Co-Sign Statement: I was available for consultation during this patient's emergency department visit. This chart is signed by myself for administrative purposes only. I did not have direct contact with this patient during this visit. They were seen independently by the APC.
[2020-05-15 12:14] VITALS: BP 131/61; PULSE 60; RESP 20; O2SAT 100
== END 2020-05-15 12:27 | disposition home or self-care (01) ==
PROVIDERS: Emergency Provider Nurse Practitioner Family; PCP Physician Assistant
DX: N64.4 Mastodynia (principal)
CPT/HCPCS: 71046; 76642; 93005; 93010; 99284

== ENCOUNTER → 2020-08-02 10:48 | Outpatient (CLI) | payer OTHER, SELFPAY ==
--- NOTE | 2020-08-02 10:51 | DI.RAD.S_ITS ---
PROCEDURE: XR THORACIC SPINE 3V INDICATIONS: CHEST PAIN TECHNIQUE: 3 views of the thoracic spine were acquired. COMPARISON: None. FINDINGS: Bones: No fractures or dislocations. No suspicious bony lesions. 12 pairs of ribs are noted, and appear intact where visualized. There is [id number]-[id number] degenerative disc disease along the upper and middle thirds of the thoracic spine with kyphosis as a result but no compression fracture is seen. Soft tissues: No paravertebral stripe thickening. IMPRESSION: Mild to moderate degenerative disc disease present without compression fracture, centered over the middle and upper thirds of the thoracic spine with secondary mild kyphosis. Dictated by: Jan Reyes M.D. on 08/02/2020 at 14:38 Approved by: Jan Reyes M.D. on 08/02/2020 at 14:38
== END ==
PROVIDERS: PCP Nurse Practitioner Family; Referring Provider Nurse Practitioner Family; Visit Provider Nurse Practitioner Family
DX: R07.89 Other chest pain (principal); M51.34 Other intervertebral disc degeneration, thoracic region; M40.14 Other secondary kyphosis, thoracic region; M54.10 Radiculopathy, site unspecified
CPT/HCPCS: 72072

== ENCOUNTER → 2020-08-14 11:12 | Outpatient (CLI) | payer OTHER, SELFPAY ==
--- NOTE | 2020-08-14 | DI.MRI.S_ITS ---
PROCEDURE: MR THORACIC SPINE WO CON INDICATIONS: disc degeneration TECHNIQUE: Noncontrast sagittal T1 spine echo and T2 fast spin echo, sagittal STIR, axial T1 and T2 fast spin echo through the thoracic spine. COMPARISON: [facility], CR, XR THORACIC SPINE 3V, 08/02/2020, 10:59. FINDINGS: Image quality: Excellent. Alignment and Curvature: There is trace anterolisthesis of C7 on T1. Bone Marrow: Marrow is of normal overall signal. Moderate reactive endplate changes are present at T12-L1. No acute vertebral body compression fractures. Spinal Cord: Visualized spinal cord is normal in size and signal. Paraspinous Soft Tissues: No paravertebral masses. Partially visualized increased T2 signal is present in what appears to be the posterior lateral liver. Miscellaneous: Multilevel disc desiccation is present. Trace disc bulges present at T3-4, T7-8 T8-9, T12-L1. Moderate spinal stenosis is present at T12-L1 with mild bilateral foraminal narrowing. IMPRESSION: 1. Multilevel disc desiccation throughout the thoracic spine. 2. Multilevel disc bulges as above. 3. Moderate spinal stenosis at T12-L1. 4. Partially visualized T2 hyperintensity within what appears to be the posterior lateral liver. This could represent a cyst. Follow-up ultrasound is recommended. Dictated by: Estrella Arreola M.D. on 08/14/2020 at 14:06 Approved by: Estrella Arreola M.D. on 08/14/2020 at 14:13
== END ==
PROVIDERS: PCP Nurse Practitioner Family; Referring Provider Nurse Practitioner Family; Visit Provider Nurse Practitioner Family
DX: M51.35 Other intervertebral disc degeneration, thoracolumbar region (principal); M48.05 Spinal stenosis, thoracolumbar region
CPT/HCPCS: 72146

== ENCOUNTER 2020-11-21 14:15 | Outpatient (RCR) | payer OTHER, SELFPAY ==
--- NOTE | 2020-10-10 16:30 | PT.OIE ---
Current Diagnoses Stress incontinence (female) (male) (10/10/20) Past Medical History (Last Reviewed 05/15/20 @ 11:24 by NILESH Hassan) Diabetes Visit Care Team Role Provider Type NILESH Grewal Family Provider Advanced Precision Thread Grinder Operator Specialty: Family Practice Address: [address] [place] [address]. [facility] [place], [address] Email: NILESH Castillo Attending Provider Advanced Precision Thread Grinder Operator Primary Care Provider Referring Provider Specialty: [facility] Practice Address: [address] [place] [address], [place], [address] Email: [email or web address] Physical Therapy Initial Evaluation PT-OP-A Visit Information Start: 10/10/20 07:33 Freq: Status: Active Protocol: Document 10/10/20 07:30 AMB (Rec: 10/10/20 11:57 AMB [id number]) Out-Patient Physical Therapy Visit Information Visit Information Visit Type Initial Evaluation Visit Start Time 07:30 Visit Stop Time 08:15 Total Visit Minutes 45 Visit Number 1 PT-OP-B Current Condition Start: 10/10/20 07:33 Freq: Status: Active Protocol: Document 10/10/20 07:36 AMB (Rec: 10/10/20 08:26 AMB [id number]) Current Condition History of Current Condition Onset Date Worse in the last few months Current Complaints Stress incontinence History of Current Condition Getting up in the middle of the night and leaks with moving from sit to stand. Has a chronic cough that also makes her leak. Uses 1 pad/ day. No child history. Recently back on metformin- historically somewhat constipated not now. PT-OP-C Subjective Start: 10/10/20 07:33 Freq: Status: Active Protocol: Document 10/10/20 07:30 AMB (Rec: 10/10/20 11:57 AMB [email or web address]) Patient Questionnaires Pelvic Pain and Urgency/Frequency Patient Symptom Scale Pelvic Pain Score 7 PT-OP-I Pelvic Floor Start: 10/10/20 07:33 Freq: Status: Active Protocol: Document 10/10/20 07:30 AMB (Rec: 10/10/20 16:29 AMB [email or web address]) Pelvic Floor Assessment Urine Pelvic Floor Surgery No Leakage Size Medium Leakage Cause Cough,Sneeze,Urge Voiding Frequency 2-3 hours Nocturia 2 Pads Used In 24 Hours 1 Urine Pad Type Panty Liner Bowel Other Bowel Symptoms previous constipation not current Pelvic Clock Pelvic Clock 3-6 Tenderness Pelvic Clock 6-9 Tenderness Contraction Ability Voluntary Contraction Weak Voluntary Relaxation Weak Manual Muscle Testing Left 2 Manual Muscle Testing Right 2 Manual Muscle Testing Anterior 2 Manual Muscle Testing Posterior 3 Muscle Endurance (Seconds) 4 Number of Quick Contractions In 10 3 Seconds PT-OP-T Assessment and Plan Start: 10/10/20 07:33 Freq: Status: Active Protocol: Document 10/10/20 07:30 AMB (Rec: 10/10/20 16:29 AMB [id number]) Physical Therapy Assessment Rehab Potential Rehabilitation Potential Good Evaluation Complexity Number of Personal Factors/Comorbidities 0 Number of Body Systems Impaired 1-2 Clinical Presentation at Evaluation Stable Impairments Impairments Strength Goals Two Impairment Stress incontinence Short Term Goal (STG) Angy will move from sit to stand without leaking. STG Duration 4 weeks Ship'S Electronic Warfare Officer Goal (LTG) Angy will cough without leaking. LTG Duration 8 weeks One Impairment Pelvic floor strength Short Term Goal (STG) Angy will be independent and consistent with a HEP to strengthen her pelvic floor. STG Duration 4 weeks [employer]'S Electronic Warfare Officer Goal (LTG) Angy will improve her pelvic floor strength to be able to hold a contraction for 10 seconds in standing. LTG Duration 8 weeks Assessment Summary Assessment Angy attends physical therapy with stress urinary incontinence worse with moving from sit to stand especially at night when the bladder is full, and with coughing. She had a weak pelvic floor and will benefit from pelvic floor strengthening to decrease her urinary leaking. Physical Therapy Plan Frequency and Duration Frequency of Treatment 1x/Week Duration of Treatment 8 weeks Plan of Care Start Date 10/10/20 Plan of Care End Date 12/05/20 Therapeutic Interventions Therapeutic Interventions Home Exercise Program,Manual Therapy,Neuromuscular Re- education,Self-Care/Home Management,Therapeutic Activities,Therapeutic Exercises Modalities Biofeedback,Electric Stimulation Next Visit Focus/Plan Next Note Type Treatment Note Next Visit Plan Begin with sEMG, progress strengthening as tolerated from issued HEP of supine quick flicks and long holds
--- NOTE | 2020-10-10 16:30 | PT.OPPOC ---
Physical, Occupational & Speech Therapy At [facility] Current Diagnoses Stress incontinence (female) (male) (10/10/20) Visit Care Team Role Provider Type NILESH Grewal Family Provider Advanced Sales And Service Advisor Specialty: Family Practice Address: [address] [place] [address]. [place], [address] Email: NILESH Castillo Attending Provider Advanced Sales And Service Advisor Primary Care Provider Referring Provider Specialty: Family Practice Address: [address] [place] [address], [place], [address] Email: [email or web address] Plan Of Care PT-OP-T Assessment and Plan Start: 10/10/20 07:33 Freq: Status: Active Protocol: Document 10/10/20 07:30 AMB (Rec: 10/10/20 16:29 AMB [email or web address]) Physical Therapy Assessment Rehab Potential Rehabilitation Potential Good Evaluation Complexity Number of Personal Factors/Comorbidities 0 Number of Body Systems Impaired 1-2 Clinical Presentation at Evaluation Stable Impairments Impairments Strength Goals Two Impairment Stress incontinence Short Term Goal (STG) Angy will move from sit to stand without leaking. STG Duration 4 weeks Safety Scientist Goal (LTG) Angy will cough without leaking. LTG Duration 8 weeks One Impairment Pelvic floor strength Short Term Goal (STG) Angy will be independent and consistent with a HEP to strengthen her pelvic floor. STG Duration 4 weeks Assisted Goal (LTG) Angy will improve her pelvic floor strength to be able to hold a contraction for 10 seconds in standing. LTG Duration 8 weeks Assessment Summary Assessment Angy attends physical therapy with stress urinary incontinence worse with moving from sit to stand especially at night when the bladder is full, and with coughing. She had a weak pelvic floor and will benefit from pelvic floor strengthening to decrease her urinary leaking. Physical Therapy Plan Frequency and Duration Frequency of Treatment 1x/Week Duration of Treatment 8 weeks Plan of Care Start Date 10/10/20 Plan of Care End Date 12/05/20 Therapeutic Interventions Therapeutic Interventions Home Exercise Program,Manual Therapy,Neuromuscular Re- education,Self-Care/Home Management,Therapeutic Activities,Therapeutic Exercises Modalities Biofeedback,Electric Stimulation Next Visit Focus/Plan Next Note Type Treatment Note Next Visit Plan Begin with sEMG, progress strengthening as tolerated from issued HEP of supine quick flicks and long holds Plan of Care Dates Plan of Care Start Date 10/10/20 Plan of Care End Date 12/05/20 Electronically Signed by: Vivien Wolfe, PT 10/10/20 [id number] Please Sign and Return: I have reviewed this Plan of Care and certify that the skilled therapy services above are required to meet the patient?s needs. Physician Signature Date Printed Name and Credentials Clinical Instructor Signature Printed Name and Credentials
--- NOTE | 2020-10-17 09:09 | PT.OTN ---
Current Diagnoses Stress incontinence (female) (male) (10/17/20) Physical Therapy Treatment Note PT-OP-A Visit Information Start: 10/10/20 07:33 Freq: Status: Active Protocol: Document 10/17/20 07:30 AMB (Rec: 10/17/20 07:59 AMB [id number]) Out-Patient Physical Therapy Visit Information Visit Information Visit Type Treatment Note Visit Start Time 07:30 Visit Stop Time 08:15 Total Visit Minutes 45 Visit Number 2 PT-OP-B Current Condition Start: 10/10/20 07:33 Freq: Status: Active Protocol: Document 10/10/20 07:36 AMB (Rec: 10/10/20 08:26 AMB [id number]) Current Condition History of Current Condition Onset Date Worse in the last few months Current Complaints Stress incontinence History of Current Condition Getting up in the middle of the night and leaks with moving from sit to stand. Has a chronic cough that also makes her leak. Uses 1 pad/ day. No child history. Recently back on metformin- historically somewhat constipated not now. PT-OP-C Subjective Start: 10/10/20 07:33 Freq: Status: Active Protocol: Document 10/17/20 07:30 AMB (Rec: 10/17/20 07:59 AMB [id number]) OP-PT Subjective Patient Comments Patient Comments Pt reports she has really been working on tightening pelvic floor at night with sit to stand and that is helpful. She does feel like coughing throughout the day especially when bladder is full is still an issue. PT-OP-I Pelvic Floor Start: 10/10/20 07:33 Freq: Status: Active Protocol: Document 10/10/20 07:30 AMB (Rec: 10/10/20 16:29 AMB [email or web address]) Pelvic Floor Assessment Urine Pelvic Floor Surgery No Leakage Size Medium Leakage Cause Cough,Sneeze,Urge Voiding Frequency 2-3 hours Nocturia 2 Pads Used In 24 Hours 1 Urine Pad Type Panty Liner Bowel Other Bowel Symptoms previous constipation not current Pelvic Clock Pelvic Clock 3-6 Tenderness Pelvic Clock 6-9 Tenderness Contraction Ability Voluntary Contraction Weak Voluntary Relaxation Weak Manual Muscle Testing Left 2 Manual Muscle Testing Right 2 Manual Muscle Testing Anterior 2 Manual Muscle Testing Posterior 3 Muscle Endurance (Seconds) 4 Number of Quick Contractions In 10 3 Seconds PT-OP-Q Treatments Start: 10/10/20 07:33 Freq: Status: Active Protocol: Document 10/17/20 07:30 AMB (Rec: 10/17/20 07:59 AMB [id number]) Therapeutic Exercises Sitting Exercises Knee Roll in/out Sitting Exercise Name focus on breathing, pelvic floor Reps/Minutes 10x ea, #3 t band Standing Exercises 1 Standing Exercise Name mini squat with PF contract Reps/Minutes 10 PT-OP-T Assessment and Plan Start: 10/10/20 07:33 Freq: Status: Active Protocol: Document 10/17/20 07:30 AMB (Rec: 10/17/20 07:59 AMB [id number]) Physical Therapy Assessment Assessment Summary Assessment Angy had difficulty with seated roll in to begin with, mostly challenged by coordinating the roll in with her breathing. Physical Therapy Plan Next Visit Focus/Plan Next Note Type Treatment Note Next Visit Plan Follow up on seated roll in roll out
--- NOTE | 2020-10-22 08:17 | PT.OTN ---
Current Diagnoses Stress incontinence (female) (male) (10/22/20) Physical Therapy Treatment Note PT-OP-A Visit Information Start: 10/10/20 07:33 Freq: Status: Active Protocol: Document 10/22/20 07:30 AMB (Rec: 10/22/20 08:05 AMB [id number]) Out-Patient Physical Therapy Visit Information Visit Information Visit Type Treatment Note Visit Start Time 07:30 Visit Stop Time 08:15 Total Visit Minutes 45 Visit Number 3 PT-OP-B Current Condition Start: 10/10/20 07:33 Freq: Status: Active Protocol: Document 10/10/20 07:36 AMB (Rec: 10/10/20 08:26 AMB [id number]) Current Condition History of Current Condition Onset Date Worse in the last few months Current Complaints Stress incontinence History of Current Condition Getting up in the middle of the night and leaks with moving from sit to stand. Has a chronic cough that also makes her leak. Uses 1 pad/ day. No child history. Recently back on metformin- historically somewhat constipated not now. PT-OP-C Subjective Start: 10/10/20 07:33 Freq: Status: Active Protocol: Document 10/22/20 07:30 AMB (Rec: 10/22/20 08:05 AMB [id number]) OP-PT Subjective Patient Comments Patient Comments Pt reports most difficulty with standing exercise. Is aware to tightne muscles before sit to stand and that is helpful PT-OP-I Pelvic Floor Start: 10/10/20 07:33 Freq: Status: Active Protocol: Document 10/10/20 07:30 AMB (Rec: 10/10/20 16:29 AMB [email or web address]) Pelvic Floor Assessment Urine Pelvic Floor Surgery No Leakage Size Medium Leakage Cause Cough,Sneeze,Urge Voiding Frequency 2-3 hours Nocturia 2 Pads Used In 24 Hours 1 Urine Pad Type Panty Liner Bowel Other Bowel Symptoms previous constipation not current Pelvic Clock Pelvic Clock 3-6 Tenderness Pelvic Clock 6-9 Tenderness Contraction Ability Voluntary Contraction Weak Voluntary Relaxation Weak Manual Muscle Testing Left 2 Manual Muscle Testing Right 2 Manual Muscle Testing Anterior 2 Manual Muscle Testing Posterior 3 Muscle Endurance (Seconds) 4 Number of Quick Contractions In 10 3 Seconds PT-OP-Q Treatments Start: 10/10/20 07:33 Freq: Status: Active Protocol: Document 10/22/20 07:30 AMB (Rec: 10/22/20 08:05 AMB [id number]) Therapeutic Exercises Supine Exercises 1 Supine Exercise Name SLR with PF and TA Reps/Minutes 10 Sidelying Exercises 1 Sidelying Exercise Name hip abd and clamshell Comments with TA and pelvic floor Standing Exercises 2 Standing Exercise Name mini lunge with PF and TA stab Reps/Minutes 10 1 Standing Exercise Name mini squat with PF contract Reps/Minutes 10 PT-OP-T Assessment and Plan Start: 10/10/20 07:33 Freq: Status: Active Protocol: Document 10/22/20 07:30 AMB (Rec: 10/22/20 08:05 AMB [id number]) Physical Therapy Assessment Assessment Summary Assessment Discussed urge reduction today as that can happen to her sometimes, good fluid (water intake) without caffeine or alcohol. Physical Therapy Plan Next Visit Focus/Plan Next Visit Plan Follow up on standing exercises
--- NOTE | 2020-10-31 14:34 | PT.OTN ---
Current Diagnoses Stress incontinence (female) (male) (10/31/20) Physical Therapy Treatment Note PT-OP-A Visit Information Start: 10/10/20 07:33 Freq: Status: Active Protocol: Document 10/31/20 07:30 AMB (Rec: 11/01/20 14:33 AMB [email or web address]) Out-Patient Physical Therapy Visit Information Visit Information Visit Type Treatment Note Visit Start Time 07:30 Visit Stop Time 08:15 Total Visit Minutes 45 Visit Number 4 PT-OP-B Current Condition Start: 10/10/20 07:33 Freq: Status: Active Protocol: Document 10/10/20 07:36 AMB (Rec: 10/10/20 08:26 AMB [id number]) Current Condition History of Current Condition Onset Date Worse in the last few months Current Complaints Stress incontinence History of Current Condition Getting up in the middle of the night and leaks with moving from sit to stand. Has a chronic cough that also makes her leak. Uses 1 pad/ day. No child history. Recently back on metformin- historically somewhat constipated not now. PT-OP-C Subjective Start: 10/10/20 07:33 Freq: Status: Active Protocol: Document 10/31/20 07:30 AMB (Rec: 11/01/20 14:33 AMB [email or web address]) OP-PT Subjective Patient Comments Patient Comments Angy is doing well. No more leaks at night, but does have issues with coughing. PT-OP-I Pelvic Floor Start: 10/10/20 07:33 Freq: Status: Active Protocol: Document 10/10/20 07:30 AMB (Rec: 10/10/20 16:29 AMB [email or web address]) Pelvic Floor Assessment Urine Pelvic Floor Surgery No Leakage Size Medium Leakage Cause Cough,Sneeze,Urge Voiding Frequency 2-3 hours Nocturia 2 Pads Used In 24 Hours 1 Urine Pad Type Panty Liner Bowel Other Bowel Symptoms previous constipation not current Pelvic Clock Pelvic Clock 3-6 Tenderness Pelvic Clock 6-9 Tenderness Contraction Ability Voluntary Contraction Weak Voluntary Relaxation Weak Manual Muscle Testing Left 2 Manual Muscle Testing Right 2 Manual Muscle Testing Anterior 2 Manual Muscle Testing Posterior 3 Muscle Endurance (Seconds) 4 Number of Quick Contractions In 10 3 Seconds PT-OP-Q Treatments Start: 10/10/20 07:33 Freq: Status: Active Protocol: Document 10/31/20 07:30 AMB (Rec: 11/01/20 14:33 AMB [email or web address]) Therapeutic Exercises Standing Exercises 2 Standing Exercise Name mini lunge with PF and TA stab Reps/Minutes 10 1 Standing Exercise Name mini squat with PF contract Reps/Minutes 10 Core Stab Standing Exercise Name Stab with sit>stand and first steps after sitting Reps/Minutes 8x PT-OP-T Assessment and Plan Start: 10/10/20 07:33 Freq: Status: Active Protocol: Document 10/31/20 07:30 AMB (Rec: 10/31/20 08:14 AMB [id number]) Physical Therapy Assessment Goals Two Impairment Stress incontinence Short Term Goal (STG) Angy will move from sit to stand without leaking. STG Duration MET Accounts Collector Goal (LTG) Angy will cough without leaking. LTG Duration 8 weeks One Impairment Pelvic floor strength Short Term Goal (STG) Angy will be independent and consistent with a HEP to strengthen her pelvic floor. STG Duration 4 weeks Skilled Nursing Goal (LTG) Angy will improve her pelvic floor strength to be able to hold a contraction for 10 seconds in standing. LTG Duration MET Assessment Summary Assessment Angy is doing well, will see in a few weeks when she returns from her travels to follow up on symptoms. Biggest issue is leaking with coughing at this point. Physical Therapy Plan Next Visit Focus/Plan Next Visit Plan Follow up on standing exercises
--- NOTE | 2020-11-21 15:24 | PT.OPDS ---
Current Diagnoses Stress incontinence (female) (male) (11/21/20) Visit Care Team Role Provider Type NILESH Grewal Family Provider Advanced Lineman Service Or Work Dispatcher Specialty: [facility] Address: [address] [place] [address]. [place], [address] Email: NILESH Castillo Attending Provider Advanced Lineman Service Or Work Dispatcher Primary Care Provider Referring Provider Specialty: [facility] Address: [address] [place] [address], [place], [address] Email: [email or web address] Visit Number Visit Number 5 Discharge Summary PT-OP-B Current Condition Start: 10/10/20 07:33 Freq: Status: Active Protocol: Document 10/10/20 07:36 AMB (Rec: 10/10/20 08:26 AMB [id number]) Current Condition History of Current Condition Onset Date Worse in the last few months Current Complaints Stress incontinence History of Current Condition Getting up in the middle of the night and leaks with moving from sit to stand. Has a chronic cough that also makes her leak. Uses 1 pad/ day. No child history. Recently back on metformin- historically somewhat constipated not now. PT-OP-C Subjective Start: 10/10/20 07:33 Freq: Status: Active Protocol: Document 11/21/20 14:15 AMB (Rec: 11/21/20 15:23 AMB [email or web address]) OP-PT Subjective Patient Comments Patient Comments Exercises are going well. PT-OP-I Pelvic Floor Start: 10/10/20 07:33 Freq: Status: Active Protocol: Document 10/10/20 07:30 AMB (Rec: 10/10/20 16:29 AMB [email or web address]) Pelvic Floor Assessment Urine Pelvic Floor Surgery No Leakage Size Medium Leakage Cause Cough,Sneeze,Urge Voiding Frequency 2-3 hours Nocturia 2 Pads Used In 24 Hours 1 Urine Pad Type Panty Liner Bowel Other Bowel Symptoms previous constipation not current Pelvic Clock Pelvic Clock 3-6 Tenderness Pelvic Clock 6-9 Tenderness Contraction Ability Voluntary Contraction Weak Voluntary Relaxation Weak Manual Muscle Testing Left 2 Manual Muscle Testing Right 2 Manual Muscle Testing Anterior 2 Manual Muscle Testing Posterior 3 Muscle Endurance (Seconds) 4 Number of Quick Contractions In 10 3 Seconds PT-OP-T Assessment and Plan Start: 10/10/20 07:33 Freq: Status: Active Protocol: Document 11/21/20 14:15 AMB (Rec: 11/21/20 14:55 AMB [id number]) Physical Therapy Assessment Goals Two Impairment Stress incontinence Short Term Goal (STG) Angy will move from sit to stand without leaking. STG Duration MET Foxer Goal (LTG) Angy will cough without leaking. LTG Duration MET One Impairment Pelvic floor strength Short Term Goal (STG) Angy will be independent and consistent with a HEP to strengthen her pelvic floor. STG Duration MET Halfway Goal (LTG) Angy will improve her pelvic floor strength to be able to hold a contraction for 10 seconds in standing. LTG Duration MET Assessment Summary Assessment Angy is going to the bathroom 1-2x/night which she is ok with. She did leak with a big coughing attack, but not a lot. She is doing her exercises 1x/day. She feels ready to be discharged. Physical Therapy Plan Discharge Physical Therapy Discharge Reasons Goals Met
== END 2020-11-22 08:41 | disposition home or self-care (01) ==
LOC: PHYS 14:15
PROVIDERS: Family Provider Nurse Practitioner Family; PCP Internal Medicine; Referring Provider Internal Medicine; Visit Provider Internal Medicine
DX: N39.3 Stress incontinence (female) (male) (principal)
CPT/HCPCS: 97110; 97161

== ENCOUNTER → 2021-06-01 08:58 | Outpatient (CLI) | payer OTHER, SELFPAY ==
--- NOTE | 2021-06-01 09:02 | DI.MG.S_ITS ---
BILATERAL DIGITAL SCREENING MAMMOGRAM 3D/2D WITH CAD: 06/01/2021 CLINICAL: Routine screening. Comparison is made to exams dated: 05/15/2020 ultrasound, 04/25/2020 mammogram, 03/26/2019 mammogram, 03/16/2017 mammogram, and 04/13/2015 mammogram - [facility]. There are scattered fibroglandular elements in both breasts. Current study was also evaluated with a Computer Aided Detection (CAD) system. No significant masses, calcifications, or other findings are seen in either breast. There has been no significant interval change. IMPRESSION: NEGATIVE There is no mammographic evidence of malignancy. A 1 year screening mammogram is recommended. This exam was interpreted at Station ID: [id number]. NOTE: For mammograms, a report in lay terms will be sent to the patient. Approximately 15% of breast malignancies will not be visualized mammographically. In the management of a palpable breast mass, a negative mammogram must not discourage biopsy of a clinically suspicious lesion. Electronically Signed By: Mir lerner/parish:06/03/2021 08:28:45 letter sent: Normal Exam ACR BI-RADS Category 1: Negative [id number]
== END ==
PROVIDERS: Family Provider Nurse Practitioner Family; PCP Internal Medicine; Referring Provider Internal Medicine; Visit Provider Internal Medicine
DX: Z12.31 Encounter for screening mammogram for malignant neoplasm of breast (principal)
CPT/HCPCS: 77063; 77067

== ENCOUNTER → 2022-01-21 10:45 | Outpatient (CLI) | payer OTHER, SELFPAY | PROVIDERS: Family Provider Nurse Practitioner Family; PCP Internal Medicine; Referring Provider Internal Medicine; Visit Provider Internal Medicine | DX: Z78.0 Asymptomatic menopausal state (principal) | CPT/HCPCS: 77080; 77081 ==

== ENCOUNTER → 2022-06-03 13:23 | Outpatient (CLI) | payer OTHER, SELFPAY ==
--- NOTE | 2022-06-03 | DI.MG.S_ITS ---
BILATERAL DIGITAL DIAGNOSTIC MAMMOGRAM 3D/2D: 06/03/2022 CLINICAL: Breast pain and lumps. Comparison is made to exams dated: 06/01/2021 mammogram, 04/25/2020 mammogram, and 03/26/2019 mammogram - [facility]. There are scattered areas of fibroglandular density in both breasts (category b / 25%-50% glandular tissue). No significant masses, calcifications, or other findings are seen in either breast. There has been no significant interval change. IMPRESSION: NEGATIVE There is no mammographic evidence of malignancy. A 1 year screening mammogram is recommended. Based on the Tyrer Cuzick model (a risk assessment model) the patient's lifetime risk is 3.8% and her 10 year risk is 0.0%. According to the ACR, ACS, and NCCN guidelines, an annual breast MRI exam along with mammogram is recommended if the patient's lifetime risk is 20% or greater. This exam was interpreted at Station ID: [id number]. NOTE: For mammograms, a report in lay terms will be sent to the patient. Approximately 15% of breast malignancies will not be visualized mammographically. In the management of a palpable breast mass, a negative mammogram must not discourage biopsy of a clinically suspicious lesion. Electronically Signed By: Selvin Martins M.D., jr/parish:06/03/2022 14:03:46 letter sent: Normal Exam ACR BI-RADS Category 1: Negative [id number]
== END ==
PROVIDERS: Family Provider Nurse Practitioner Family; PCP Internal Medicine; Referring Provider Internal Medicine; Visit Provider Internal Medicine
DX: N63.25 Unspecified lump in the left breast, overlapping quadrants (principal); N64.4 Mastodynia; N63.23 Unspecified lump in the left breast, lower outer quadrant
CPT/HCPCS: 77066; G0279

== ENCOUNTER → 2022-10-01 10:06 | Outpatient (CLI) | payer OTHER, SELFPAY ==
--- NOTE | 2022-10-01 | DI.RAD.S_ITS ---
PROCEDURE: XR KNEE LT 3V INDICATIONS: left knee pain TECHNIQUE: 3 views of the knee were acquired. COMPARISON: None. FINDINGS: Bones: No fractures or dislocations. No suspicious bony lesions. Mild medial and lateral compartment narrowing and spurring. Moderate patellofemoral compartment narrowing and spurring. Soft tissues: No joint effusion. No suspicious soft tissue calcifications. IMPRESSION: No acute osseous abnormality. Tricompartmental degenerative changes of the knee are present. If symptoms persist, follow-up radiographs and/or CT or MRI may be helpful for further evaluation. Dictated by: Redd Horvath M.D. on 10/01/2022 at 11:32 Approved by: Redd Horvath M.D. on 10/01/2022 at 11:34
== END ==
PROVIDERS: Family Provider Nurse Practitioner Family; PCP Internal Medicine; Referring Provider Internal Medicine; Visit Provider Internal Medicine
DX: M25.562 Pain in left knee (principal)
CPT/HCPCS: 73562

== ENCOUNTER → 2022-12-12 09:14 | Outpatient (CLI) | payer OTHER, SELFPAY ==
--- NOTE | 2022-12-12 | DI.MRI.S_ITS ---
PROCEDURE: MR KNEE LT WO CON INDICATIONS: Unilateral primary osteoarthritis, left knee TECHNIQUE: Noncontrast sagittal PD fast spin echo and T2 fast spin echo with fat saturation, sagittal 3-D FLASH with fat saturation; coronal T1 spin echo and PD fast spin echo with fat saturation, and axial PD fast spin echo with fat saturation through the knee. COMPARISON: [facility], CR, XR KNEE LT 3V, 10/01/2022, 10:23. [facility], CR, XR KNEE ARTHRITIC SERIES LT, 10/17/2022, 9:06. FINDINGS: Image quality: Excellent. Anterior Cruciate Ligament: Intact. Posterior Cruciate Ligament: Intact. Medial Collateral Ligament: Mild edema surrounding the proximal medial collateral ligament is compatible with a low-grade sprain. Lateral Collateral Ligament: Intact. Medial Meniscus: There is complex tearing of the medial meniscus with a radial component at the meniscal body as well as a horizontal oblique component at the anterior and posterior horns. Lateral Meniscus: Intact. Medial and Lateral Tendons: The semimembranosus tendon insertions and meniscocapsular junction appear intact. Visualized portions of the pes anserinus tendons appear normal. No abnormal bursal fluid. The long and short heads of the biceps femoris tendon appear intact. The popliteus tendon appears intact. No signs of posterolateral corner injury. Iliotibial band appears normal. Anterior Structures: The quadriceps and patellar tendons appear intact. No patellar subluxation. No femoral trochlear dysplasia or ventral trochlear prominence. No edema in the infrapatellar fat pad. Bones: There is a minimally depressed subchondral fracture in the central weight-bearing portion of the medial tibial plateau measuring approximately 11 x 12 mm with 2 mm of depression of the subchondral plate. Moderate surrounding osseous edema is seen in the medial tibial plateau. Medial Femorotibial Cartilage: High-grade and likely full-thickness cartilage loss are seen in the weight-bearing portion of the medial femorotibial compartment with marginal osteophyte formation and subchondral edema. Lateral Femorotibial Cartilage: Partial-thickness cartilage irregularity is seen in the posterior weight-bearing portion of the lateral tibial plateau with marginal osteophyte formation. Patellofemoral Cartilage: Full-thickness cartilage loss is seen at the lateral patellar facet and the adjacent lateral femoral trochlea with subchondral cystic changes and edema and marginal osteophyte formation. Soft Tissues: A moderate amount of joint fluid is present. Trace medial popliteal cyst. The musculature surrounding the knee is normal in bulk. IMPRESSION: 1. Small subchondral fracture at the central weight-bearing portion of the medial tibial plateau measuring 11 x 12 mm with up to 2 mm of articular surface depression. Moderate surrounding osseous edema throughout the medial tibial plateau. 2. Complex tearing of the medial meniscus with a radial component at the meniscal body and a horizontal oblique component at the anterior and posterior horns. 3. Low-grade sprain of the proximal medial collateral ligament. 4. 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 Full-thickness cartilage loss is seen throughout the lateral portion of the patellofemoral compartment. There is grade 2 chondromalacia in the lateral compartment. 5. Moderate joint effusion. Approved by: Redd Ramirez M.D. on 12/12/2022 at 11:50
== END ==
PROVIDERS: Family Provider Nurse Practitioner Family; PCP Internal Medicine; Referring Provider Orthopaedic Surgery; Visit Provider Orthopaedic Surgery
DX: S83.232A Complex tear of medial meniscus, current injury, left knee, initial encounter (principal); S82.145A Nondisplaced bicondylar fracture of left tibia, initial encounter for closed fracture; M17.12 Unilateral primary osteoarthritis, left knee; M23.92 Unspecified internal derangement of left knee; S83.412A Sprain of medial collateral ligament of left knee, initial encounter; M94.262 Chondromalacia, left knee
CPT/HCPCS: 73721

== ENCOUNTER 2022-12-18 14:15 | Outpatient (RCR) | payer OTHER, SELFPAY ==
--- NOTE | 2022-11-12 14:14 | PT.OIE ---
Current Diagnoses Unilateral primary osteoarthritis, left knee (11/12/22) Unspecified internal derangement of left knee (11/12/22) Past Medical History (Last Reviewed 05/15/20 @ 11:24 by NILESH Hassan) Diabetes Visit Care Team Role Provider Type NILESH Castillo Primary Care Provider Advanced Beauty Culturist Specialty: Family Practice Address: [address], [facility] [place], [address] Email: [email or web address] NILESH Grewal Family Provider Advanced Beauty Culturist Specialty: [facility] Practice Address: [address], [place], [address] Email: Saeed Field DO Attending Provider Non-Staff Referring Provider Specialty: Orthopedic Surgery Address: [address] [place] [address], [id number] Email: Physical Therapy Initial Evaluation PT-OP-A Visit Information Start: 11/12/22 14:04 Freq: Status: Active Protocol: Document 11/12/22 14:05 ED (Rec: 11/12/22 14:14 ED [id number]) Out-Patient Physical Therapy Visit Information Visit Information Visit Type Initial Evaluation Visit Note 04/08 Visit Start Time 13:30 Visit Stop Time 14:10 Total Visit Minutes 45 Visit Number 1 Evaluation Information Evaluation Date 11/12/22 PT-OP-B Current Condition Start: 11/12/22 14:04 Freq: Status: Active Protocol: Document 11/12/22 14:05 ED (Rec: 11/12/22 14:14 ED [id number]) Current Condition History of Current Condition Onset Date July Current Complaints L knee pain History of Current Condition Pt states that she was hiking in July and randomly had a painful knee. Her pain has been off and on since then; it has reduced her daily walking program that she used to do. She states she received a corticosteroid injection today , 11/12, for her knee and is scheduled for an MRI in the near future. Pt notes that she still has difficulty c/ stairs and that she is limited in her ability to walk more than a few blocks. Pain is located medially and near the joint line. She states she was given some exercises by her orthopedist and they have helped a little bit so far. PT-OP-C Subjective Start: 11/12/22 14:04 Freq: Status: Active Protocol: Document 11/12/22 14:05 ED (Rec: 11/12/22 14:14 ED [id number]) Patient Questionnaires Lower Extremity Functional Scale LEFS Score 60 / 80 LEFS Impairment 20 to 39% Impaired (Score 48- 62) PT-OP-K Range of Motion Start: 11/12/22 14:04 Freq: Status: Active Protocol: Document 11/12/22 14:05 ED (Rec: 11/12/22 14:14 ED [id number]) Knee Goniometric Range of Motion Knee Right Knee ROM WFL Yes Patient Position Supine Flexion Active (degrees) 130 Extension Active (degrees) 0 Left Knee ROM WFL Yes Patient Position Supine Flexion Active (degrees) 130 Extension Active (degrees) 0 PT-OP-L Special Tests Start: 11/12/22 14:04 Freq: Status: Active Protocol: Document 11/12/22 14:05 ED (Rec: 11/12/22 14:14 ED [id number]) Special Tests Knee Special Tests Jose Manuel Test Test Results - Varus- 0 Degrees Test Results - Valgus- 0 Degrees Test Results - PT-OP-M Strength Start: 11/12/22 14:04 Freq: Status: Active Protocol: Document 11/12/22 14:05 ED (Rec: 11/12/22 14:14 ED [id number]) Knee Strength Knee Manual Muscle Testing Right Flexion (S2) 4 Good Extension (L3) 4 Good Left Flexion (S2) 4 Good Extension (L3) 4 Good PT-OP-Q Treatments Start: 11/12/22 14:04 Freq: Status: Active Protocol: Document 11/12/22 14:05 ED (Rec: 11/12/22 14:14 ED [id number]) Therapeutic Exercises Supine Exercises bridge Reps/Minutes 2x10 Therapeutic Activity Therapeutic Activity squat Name sit<>stand Reps/Minutes x10 Comments elevated surface PT-OP-T Assessment and Plan Start: 11/12/22 14:04 Freq: Status: Active Protocol: Document 11/12/22 14:05 ED (Rec: 11/12/22 14:14 ED [id number]) Physical Therapy Assessment Rehab Potential Rehabilitation Potential Good Evaluation Complexity Number of Personal Factors/Comorbidities 1-2 Number of Body Systems Impaired 1-2 Clinical Presentation at Evaluation Stable Impairments Impairments Activity Tolerance,Functional Activities,Functional Mobility ,Gait,Pain Goals Four Impairment pain Short Term Goal (STG) Pt will report 25% improvement in knee pain. STG Duration 3 weeks Process Mold Technician Goal (LTG) Pt will report 50% improvement in knee pain. LTG Duration 6-8 weeks Three Impairment functional mobility Short Term Goal (STG) pt will be able to perform 10 sit<>stands from 20'' surface c/o knee pain. STG Duration 3 weeks [facility] Goal (LTG) Pt will be able to negotiate steps c/o knee pain. LTG Duration 6-8 weeks Two Impairment walking Short Term Goal (STG) Pt will be able to ambulate for 10 minutes c/o knee pain. STG Duration 2-3 weeks Process Mold Technician Goal (LTG) Pt will be able to ambulate for 20-30 minutes c/o knee pain. LTG Duration 6-8 weeks One Impairment HEP Short Term Goal (STG) Pt will report performing HEP 3-4 days/week. STG Duration 2-3 weeks [facility] Goal (LTG) Pt will report performing HEP 3-4 days/week. LTG Duration 6-8 weeks Assessment Summary Assessment Pt reported to PT c/ complaints of L medial knee pain that occurred during a hike in July. Pt had slightly restricted ROM in L knee but is fell within normal limits. 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 Pt had negative valgus and varus stress test for the L knee. Pt provided initial HEP of : stationary biking, bridges, elevated sit< >stands, and a walking program . She was able to do the aformentioned exercises c/o pain. Physical Therapy Plan Frequency and Duration Frequency of Treatment 2x/Week Duration of treatment (weeks) 10 Plan of Care Start Date 11/12/22 Plan of Care End Date 02/10/23 Therapeutic Interventions Therapeutic Interventions Balance Training,Gait Training ,Home Exercise Program,Joint Mobilizations,Manual Therapy, Neuromuscular Re-education, Orthotic/Prosthetic Management ,Patient/Caregiver Education, Self-Care/Home Management,Soft Tissue Mobilization,Taping, Therapeutic Activities, Therapeutic Exercises Modalities Biofeedback,Cold Pack/Ice Massage,Electric Stimulation, Hot Packs,Ultrasound Next Visit Focus/Plan Next Note Type Treatment Note Next Visit Plan bike, HEP review (bridge, squat), TKE, heel raise, LAQ, step up, balance
--- NOTE | 2022-11-12 15:07 | PT.OPPOC ---
Physical, Occupational & Speech Therapy At [facility] Current Diagnoses Unilateral primary osteoarthritis, left knee (11/12/22) Unspecified internal derangement of left knee (11/12/22) Visit Care Team Role Provider Type NILESH Castillo Primary Care Provider Advanced Java Tech Specialty: [facility] Practice Address: [address] [facility] [place], [address] Email: [email or web address] NILESH Grewal Family Provider Advanced Java Tech Specialty: [facility] Practice Address: [address] [facility] [address], [place], [address] Email: Saeed Field DO Attending Provider Non-Staff Referring Provider Specialty: Orthopedic Surgery Address: [address] [place] [address], [id number] Email: Plan Of Care PT-OP-T Assessment and Plan Start: 11/12/22 14:04 Freq: Status: Active Protocol: Document 11/12/22 14:05 ED (Rec: 11/12/22 14:14 ED [id number]) Physical Therapy Assessment Rehab Potential Rehabilitation Potential Good Evaluation Complexity Number of Personal Factors/Comorbidities 1-2 Number of Body Systems Impaired 1-2 Clinical Presentation at Evaluation Stable Impairments Impairments Activity Tolerance,Functional Activities,Functional Mobility ,Gait,Pain Goals Four Impairment pain Short Term Goal (STG) Pt will report 25% improvement in knee pain. STG Duration 3 weeks Vehicle Maintenance Technician Goal (LTG) Pt will report 50% improvement in knee pain. LTG Duration 6-8 weeks Three Impairment functional mobility Short Term Goal (STG) pt will be able to perform 10 sit<>stands from 20'' surface c/o knee pain. STG Duration 3 weeks Long-Term Goal (LTG) Pt will be able to negotiate steps c/o knee pain. LTG Duration 6-8 weeks Two Impairment walking Short Term Goal (STG) Pt will be able to ambulate for 10 minutes c/o knee pain. STG Duration 2-3 weeks Vehicle Maintenance Technician Goal (LTG) Pt will be able to ambulate for 20-30 minutes c/o knee pain. LTG Duration 6-8 weeks One Impairment HEP Short Term Goal (STG) Pt will report performing HEP 3-4 days/week. STG Duration 2-3 weeks Long-Term Goal (LTG) Pt will report performing HEP 3-4 days/week. LTG Duration 6-8 weeks Assessment Summary Assessment Pt reported to PT c/ complaints of L medial knee pain that occurred during a hike in July. Pt had slightly restricted ROM in L knee but is fell within normal limits. 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 Pt had negative valgus and varus stress test for the L knee. Pt provided initial HEP of : stationary biking, bridges, elevated sit< >stands, and a walking program . She was able to do the aformentioned exercises c/o pain. Physical Therapy Plan Frequency and Duration Frequency of Treatment 2x/Week Duration of treatment (weeks) 10 Plan of Care Start Date 11/12/22 Plan of Care End Date 02/10/23 Therapeutic Interventions Therapeutic Interventions Balance Training,Gait Training ,Home Exercise Program,Joint Mobilizations,Manual Therapy, Neuromuscular Re-education, Orthotic/Prosthetic Management ,Patient/Caregiver Education, Self-Care/Home Management,Soft Tissue Mobilization,Taping, Therapeutic Activities, Therapeutic Exercises Modalities Biofeedback,Cold Pack/Ice Massage,Electric Stimulation, Hot Packs,Ultrasound Next Visit Focus/Plan Next Note Type Treatment Note Next Visit Plan bike, HEP review (bridge, squat), TKE, heel raise, LAQ, step up, balance Plan of Care Dates Plan of Care Start Date 11/12/22 Plan of Care End Date 02/10/23 Electronically Signed by: Sterling Burton, PT 11/12/22 3650 If you are in agreement with this Plan of Care, please return a signed and dated copy. I have reviewed this Plan of Care and certify that the skilled therapy services above are required to meet the patient?s needs. Physician Signature Date Printed Name and Credentials Clinical Instructor Signature Printed Name and Credentials
--- NOTE | 2022-11-19 08:56 | PT.OTN ---
Current Diagnoses Unilateral primary osteoarthritis, left knee (11/19/22) Unspecified internal derangement of left knee (11/19/22) Physical Therapy Treatment Note PT-OP-A Visit Information Start: 11/12/22 14:04 Freq: Status: Active Protocol: Document 11/19/22 08:52 ED (Rec: 11/19/22 08:56 ED [id number]) Out-Patient Physical Therapy Visit Information Visit Information Visit Type Treatment Note Visit Note 05/09 Visit Start Time 08:15 Visit Stop Time 08:55 Total Visit Minutes 40 Visit Number 2 PT-OP-B Current Condition Start: 11/12/22 14:04 Freq: Status: Active Protocol: Document 11/12/22 14:05 ED (Rec: 11/12/22 14:14 ED [id number]) Current Condition History of Current Condition Onset Date July Current Complaints L knee pain History of Current Condition Pt states that she was hiking in July and randomly had a painful knee. Her pain has been off and on since then; it has reduced her daily walking program that she used to do. She states she received a corticosteroid injection today , 11/12, for her knee and is scheduled for an MRI in the near future. Pt notes that she still has difficulty c/ stairs and that she is limited in her ability to walk more than a few blocks. Pain is located medially and near the joint line. She states she was given some exercises by her orthopedist and they have helped a little bit so far. PT-OP-C Subjective Start: 11/12/22 14:04 Freq: Status: Active Protocol: Document 11/19/22 08:52 ED (Rec: 11/19/22 08:56 ED [id number]) OP-PT Subjective Patient Comments Patient Comments Pt states that her knee pain is around a 4/10 when walking and performing daily activities. She states she is on a pain medication for her knee pain but thinks that she will be done with that somewhat soon. PT-OP-K Range of Motion Start: 11/12/22 14:04 Freq: Status: Active Protocol: Document 11/12/22 14:05 ED (Rec: 11/12/22 14:14 ED [id number]) Knee Goniometric Range of Motion Knee Right Knee ROM WFL Yes Patient Position Supine Flexion Active (degrees) 130 Extension Active (degrees) 0 Left Knee ROM WFL Yes Patient Position Supine Flexion Active (degrees) 130 Extension Active (degrees) 0 PT-OP-L Special Tests Start: 11/12/22 14:04 Freq: Status: Active Protocol: Document 11/12/22 14:05 ED (Rec: 11/12/22 14:14 ED [id number]) Special Tests Knee Special Tests Jose Manuel Test Test Results - Varus- 0 Degrees Test Results - Valgus- 0 Degrees Test Results - PT-OP-M Strength Start: 11/12/22 14:04 Freq: Status: Active Protocol: Document 11/12/22 14:05 ED (Rec: 11/12/22 14:14 ED [id number]) Knee Strength Knee Manual Muscle Testing Right Flexion (S2) 4 Good Extension (L3) 4 Good Left Flexion (S2) 4 Good Extension (L3) 4 Good PT-OP-Q Treatments Start: 11/12/22 14:04 Freq: Status: Active Protocol: Document 11/19/22 08:52 ED (Rec: 11/19/22 08:56 ED [id number]) Cardio Equipment Recumbent Bicycle Duration (Minutes) 6 Resistance 6 Therapeutic Exercises Sitting Exercises LAQ Sitting Exercise Name knee extension machine Side bilateral Resistance 2 Reps/Minutes 1x20 Standing Exercises calf stretch Reps/Minutes 2x10 heel raise Standing Exercise Name Captain Peck heel raise Reps/Minutes 2x15 TKE Resistance blue band Reps/Minutes 2x10 x5'' holds Therapeutic Activity Therapeutic Activity step up Reps/Minutes 1x10/leg Comments 8'' step; no UE support PT-OP-T Assessment and Plan Start: 11/12/22 14:04 Freq: Status: Active Protocol: Document 11/19/22 08:52 ED (Rec: 11/19/22 08:56 ED [id number]) Physical Therapy Assessment Goals Four Impairment pain Short Term Goal (STG) Pt will report 25% improvement in knee pain. STG Duration 3 weeks Dragsaw Operator Goal (LTG) Pt will report 50% improvement in knee pain. LTG Duration 6-8 weeks Three Impairment functional mobility Short Term Goal (STG) pt will be able to perform 10 sit<>stands from 20'' surface c/o knee pain. STG Duration 3 weeks Longterm Goal (LTG) Pt will be able to negotiate steps c/o knee pain. LTG Duration 6-8 weeks Two Impairment walking Short Term Goal (STG) Pt will be able to ambulate for 10 minutes c/o knee pain. STG Duration 2-3 weeks Longterm Goal (LTG) Pt will be able to ambulate for 20-30 minutes c/o knee pain. LTG Duration 6-8 weeks One Impairment HEP Short Term Goal (STG) Pt will report performing HEP 3-4 days/week. STG Duration 2-3 weeks Longterm Goal (LTG) Pt will report performing HEP 3-4 days/week. LTG Duration 6-8 weeks Assessment Summary Assessment PT able to perform all movements c/o exacerbation of knee pain c/ exception of step ups. PT had patient perform step ups onto 8'' surface c/o UE support; patient stated she could feel it around her medial knee but stated it was tolerable for her. PT informed patient she to monitor how her knee feels in subsequent 24-48 hours. Physical Therapy Plan Frequency and Duration Frequency of Treatment 2x/Week Duration of treatment (weeks) 10 Plan of Care Start Date 11/12/22 Plan of Care End Date 02/10/23 Next Visit Focus/Plan Next Note Type Treatment Note Next Visit Plan bike, HEP review (bridge, squat), TKE, heel raise, LAQ, step up, balance
--- NOTE | 2022-11-27 09:05 | PT.OTN ---
Current Diagnoses Unilateral primary osteoarthritis, left knee (11/27/22) Unspecified internal derangement of left knee (11/27/22) Physical Therapy Treatment Note PT-OP-A Visit Information Start: 11/12/22 14:04 Freq: Status: Active Protocol: Document 11/27/22 08:21 SP (Rec: 11/27/22 09:06 SP [id number]) Out-Patient Physical Therapy Visit Information Visit Information Visit Type Treatment Note Visit Note 06/06 Visit Start Time : Visit Stop Time 09:05 Total Visit Minutes 44 Visit Number 3 Number of EMAIL MARKETING INTERN Visits 1 Evaluation Information Evaluation Date 11/12/22 PT-OP-B Current Condition Start: 11/12/22 14:04 Freq: Status: Active Protocol: Document 11/12/22 14:05 ED (Rec: 11/12/22 14:14 ED [id number]) Current Condition History of Current Condition Onset Date July Current Complaints L knee pain History of Current Condition Pt states that she was hiking in July and randomly had a painful knee. Her pain has been off and on since then; it has reduced her daily walking program that she used to do. She states she received a corticosteroid injection today , 11/12, for her knee and is scheduled for an MRI in the near future. Pt notes that she still has difficulty c/ stairs and that she is limited in her ability to walk more than a few blocks. Pain is located medially and near the joint line. She states she was given some exercises by her orthopedist and they have helped a little bit so far. PT-OP-C Subjective Start: 11/12/22 14:04 Freq: Status: Active Protocol: Document 11/27/22 08:21 SP (Rec: 11/27/22 09:06 SP [id number]) OP-PT Subjective Patient Comments Patient Comments Pt reports doing ok with HEP, no concerns. She states still has pain over medial L knee jt line but states has gotten better with ther ex learned overall. She still is requesting MRI to find out why having pain still. PT-OP-K Range of Motion Start: 11/12/22 14:04 Freq: Status: Active Protocol: Document 11/12/22 14:05 ED (Rec: 11/12/22 14:14 ED [id number]) Knee Goniometric Range of Motion Knee Right Knee ROM WFL Yes Patient Position Supine Flexion Active (degrees) 130 Extension Active (degrees) 0 Left Knee ROM WFL Yes Patient Position Supine Flexion Active (degrees) 130 Extension Active (degrees) 0 PT-OP-L Special Tests Start: 11/12/22 14:04 Freq: Status: Active Protocol: Document 11/12/22 14:05 ED (Rec: 11/12/22 14:14 ED [id number]) Special Tests Knee Special Tests Jose Manuel Test Test Results - Varus- 0 Degrees Test Results - Valgus- 0 Degrees Test Results - PT-OP-M Strength Start: 11/12/22 14:04 Freq: Status: Active Protocol: Document 11/12/22 14:05 ED (Rec: 11/12/22 14:14 ED [id number]) Knee Strength Knee Manual Muscle Testing Right Flexion (S2) 4 Good Extension (L3) 4 Good Left Flexion (S2) 4 Good Extension (L3) 4 Good PT-OP-Q Treatments Start: 11/12/22 14:04 Freq: Status: Active Protocol: Document 11/27/22 08:21 SP (Rec: 11/27/22 09:06 SP [id number]) Therapeutic Exercises Supine Exercises bridge Reps/Minutes 2x10 Comments cued slower pacing and not so high WB on shoulders Sitting Exercises HS stretch Sitting Exercise Name added to HEP Side bilateral Resistance L>R Reps/Minutes 30 SH x3 Comments reported good posterior thigh stretch self STMs Sitting Exercise Name added to HEP as needed: quad, HS, calf Side left Reps/Minutes 2 min Comments good feedback response LAQ Sitting Exercise Name knee extension w/ TB added to HEP Side bilateral Resistance Level 2 TB orange around L ankle/ R arch Reps/Minutes 1x[address] back chair, good mid quad fac with range not full ext. Standing Exercises SLS star glides Standing Exercise Name trialed star glides Side left Reps/Minutes 2 min total Comments challenged maintain knee behind/with toes causing- irritation- hold calf stretch Reps/Minutes 2x10 heel raise Standing Exercise Name ewa [employer] heel raise Side left Equipment Used contact rail Reps/Minutes 2x15 Comments good form/painfree TKE Resistance deep blue L 4 (latex) Reps/Minutes 2x10 w/5'' holds Comments cued trunk and opp LE stationary, isolated quad contraction- improved Self-Care/Home Management Treatment Education Patient Education Pain Management Other Education added rolling pin, HS stretch for flexibility to L knee with good feedback response. PT-OP-T Assessment and Plan Start: 11/12/22 14:04 Freq: Status: Active Protocol: Document 11/27/22 08:21 SP (Rec: 11/27/22 09:06 SP [id number]) Physical Therapy Assessment Goals Four Impairment pain Short Term Goal (STG) Pt will report 25% improvement in knee pain. STG Duration 3 weeks Senior Living Goal (LTG) Pt will report 50% improvement in knee pain. LTG Duration 6-8 weeks Three Impairment functional mobility Short Term Goal (STG) pt will be able to perform 10 sit<>stands from 20'' surface c/o knee pain. STG Duration 3 weeks Senior Living Goal (LTG) Pt will be able to negotiate steps c/o knee pain. LTG Duration 6-8 weeks Two Impairment walking Short Term Goal (STG) Pt will be able to ambulate for 10 minutes c/o knee pain. STG Duration 2-3 weeks [employer] Goal (LTG) Pt will be able to ambulate for 20-30 minutes c/o knee pain. LTG Duration 6-8 weeks One Impairment HEP Short Term Goal (STG) Pt will report performing HEP 3-4 days/week. STG Duration 2-3 weeks [employer] Goal (LTG) Pt will report performing HEP 3-4 days/week. LTG Duration 6-8 weeks Assessment Summary Assessment Pt good feedback response to added resisted LAQ for home carryover quad strengthening. Introduced flexibility via stretching and self STMs use rolling pin to quad/HS/calf for decrease tension over L knee for support when needed. She was able to increase resistance to TKE today. Cues for L knee alignment with and behind toes during SL repeated step ups with report decrease tension over anterior knee. Physical Therapy Plan Frequency and Duration Frequency of Treatment 2x/Week Duration of treatment (weeks) 10 Plan of Care Start Date 11/12/22 Plan of Care End Date 02/10/23 Therapeutic Interventions Therapeutic Interventions Balance Training,Gait Training ,Home Exercise Program,Joint Mobilizations,Manual Therapy, Neuromuscular Re-education, Orthotic/Prosthetic Management ,Patient/Caregiver Education, Self-Care/Home Management,Soft Tissue Mobilization,Taping, Therapeutic Activities, Therapeutic Exercises Modalities Biofeedback,Cold Pack/Ice Massage,Electric Stimulation, Hot Packs,Ultrasound Next Visit Focus/Plan Next Note Type Treatment Note Next Visit Plan Check response to self flexibility added last tx: rolling pin/HS stretching). POC: bike, HEP review (bridge, squat), TKE, heel raise, LAQ, step up, balance
--- NOTE | 2022-12-05 10:45 | PT.OTN ---
Current Diagnoses Unilateral primary osteoarthritis, left knee (12/05/22) Unspecified internal derangement of left knee (12/05/22) Physical Therapy Treatment Note PT-OP-A Visit Information Start: 11/12/22 14:04 Freq: Status: Active Protocol: Document 12/05/22 10:40 ED (Rec: 12/05/22 10:45 ED [id number]) Out-Patient Physical Therapy Visit Information Visit Information Visit Type Treatment Note Visit Note 07/07 Visit Start Time 10:00 Visit Stop Time 10:40 Total Visit Minutes 40 Visit Number 4 Number of FUNERAL DRIVER Visits 0 PT-OP-B Current Condition Start: 11/12/22 14:04 Freq: Status: Active Protocol: Document 11/12/22 14:05 ED (Rec: 11/12/22 14:14 ED [id number]) Current Condition History of Current Condition Onset Date July Current Complaints L knee pain History of Current Condition Pt states that she was hiking in July and randomly had a painful knee. Her pain has been off and on since then; it has reduced her daily walking program that she used to do. She states she received a corticosteroid injection today , 11/12, for her knee and is scheduled for an MRI in the near future. Pt notes that she still has difficulty c/ stairs and that she is limited in her ability to walk more than a few blocks. Pain is located medially and near the joint line. She states she was given some exercises by her orthopedist and they have helped a little bit so far. PT-OP-C Subjective Start: 11/12/22 14:04 Freq: Status: Active Protocol: Document 12/05/22 10:40 ED (Rec: 12/05/22 10:45 ED [id number]) OP-PT Subjective Patient Comments Patient Comments Pt states that her knee is feeling a little better. She did a short hike to [place] with friends yesterday and noticed her knee was a little painful going up and definitely going down. PT-OP-K Range of Motion Start: 11/12/22 14:04 Freq: Status: Active Protocol: Document 11/12/22 14:05 ED (Rec: 11/12/22 14:14 ED [id number]) Knee Goniometric Range of Motion Knee Right Knee ROM WFL Yes Patient Position Supine Flexion Active (degrees) 130 Extension Active (degrees) 0 Left Knee ROM WFL Yes Patient Position Supine Flexion Active (degrees) 130 Extension Active (degrees) 0 PT-OP-L Special Tests Start: 11/12/22 14:04 Freq: Status: Active Protocol: Document 11/12/22 14:05 ED (Rec: 11/12/22 14:14 ED [id number]) Special Tests Knee Special Tests Jose Manuel Test Test Results - Varus- 0 Degrees Test Results - Valgus- 0 Degrees Test Results - PT-OP-M Strength Start: 11/12/22 14:04 Freq: Status: Active Protocol: Document 11/12/22 14:05 ED (Rec: 11/12/22 14:14 ED [id number]) Knee Strength Knee Manual Muscle Testing Right Flexion (S2) 4 Good Extension (L3) 4 Good Left Flexion (S2) 4 Good Extension (L3) 4 Good PT-OP-Q Treatments Start: 11/12/22 14:04 Freq: Status: Active Protocol: Document 12/05/22 10:40 ED (Rec: 12/05/22 10:45 ED [id number]) Cardio Equipment Recumbent Bicycle Duration (Minutes) 6 Resistance 6 Therapeutic Exercises Supine Exercises leg press Supine Exercise Name leg press Resistance 50# Reps/Minutes 2x8-12/leg Comments unilateral; cued for slow eccentric Standing Exercises calf stretch Reps/Minutes 2x60'' heel raise Standing Exercise Name Captain Peck heel raise Side bilateral Equipment Used contact rail Reps/Minutes 2x15 TKE Resistance green Reps/Minutes 2x10 w/5'' holds Therapeutic Activity Therapeutic Activity squat Name STS Reps/Minutes 2x15 Comments 10# ball elevated table height Neuro Re-Education Treatment Balance Activities SL balance Details static SL balance Reps/Duration 2x1' holds Comments minimal UE support PT-OP-T Assessment and Plan Start: 11/12/22 14:04 Freq: Status: Active Protocol: Document 12/05/22 10:40 ED (Rec: 12/05/22 10:45 ED [id number]) Physical Therapy Assessment Goals Four Impairment pain Short Term Goal (STG) Pt will report 25% improvement in knee pain. STG Duration 3 weeks Retirement Goal (LTG) Pt will report 50% improvement in knee pain. LTG Duration 6-8 weeks Three Impairment functional mobility Short Term Goal (STG) pt will be able to perform 10 sit<>stands from 20'' surface c/o knee pain. STG Duration 3 weeks City Supervisor Goal (LTG) Pt will be able to negotiate steps c/o knee pain. LTG Duration 6-8 weeks Two Impairment walking Short Term Goal (STG) Pt will be able to ambulate for 10 minutes c/o knee pain. STG Duration 2-3 weeks Retirement Goal (LTG) Pt will be able to ambulate for 20-30 minutes c/o knee pain. LTG Duration 6-8 weeks One Impairment HEP Short Term Goal (STG) Pt will report performing HEP 3-4 days/week. STG Duration 2-3 weeks Retirement Goal (LTG) Pt will report performing HEP 3-4 days/week. LTG Duration 6-8 weeks Assessment Summary Assessment Pt able to perform all movements today c/o knee pain. Pt performed a variety of LE movements to challenge knee structure and surround musculature including eccentric single leg press, unilateral heel raise, TKEs, and partial ROM squats. Physical Therapy Plan Frequency and Duration Frequency of Treatment 2x/Week Duration of treatment (weeks) 10 Plan of Care Start Date 11/12/22 Plan of Care End Date 02/10/23 Next Visit Focus/Plan Next Note Type Treatment Note Next Visit Plan bike, HEP review (bridge, squat), TKE, heel raise, LAQ, step up, balance
--- NOTE | 2022-12-08 09:04 | PT.OTN ---
Current Diagnoses Unilateral primary osteoarthritis, left knee (12/08/22) Unspecified internal derangement of left knee (12/08/22) Physical Therapy Treatment Note PT-OP-A Visit Information Start: 11/12/22 14:04 Freq: Status: Active Protocol: Document 12/08/22 08:19 SP (Rec: 12/08/22 09:07 SP [id number]) Out-Patient Physical Therapy Visit Information Visit Information Visit Type Treatment Note Visit Note 08/06 Visit Start Time Visit Stop Time 09: Total Visit Minutes 45 Visit Number 5 Number of CERTIFIED PERFORMANCE TECHNOLOGIST Visits 1 Evaluation Information Evaluation Date 11/12/22 PT-OP-B Current Condition Start: 11/12/22 14:04 Freq: Status: Active Protocol: Document 11/12/22 14:05 ED (Rec: 11/12/22 14:14 ED [id number]) Current Condition History of Current Condition Onset Date July Current Complaints L knee pain History of Current Condition Pt states that she was hiking in July and randomly had a painful knee. Her pain has been off and on since then; it has reduced her daily walking program that she used to do. She states she received a corticosteroid injection today , 11/12, for her knee and is scheduled for an MRI in the near future. Pt notes that she still has difficulty c/ stairs and that she is limited in her ability to walk more than a few blocks. Pain is located medially and near the joint line. She states she was given some exercises by her orthopedist and they have helped a little bit so far. PT-OP-C Subjective Start: 11/12/22 14:04 Freq: Status: Active Protocol: Document 12/08/22 08:19 SP (Rec: 12/08/22 09:07 SP [id number]) OP-PT Subjective Patient Comments Patient Comments Pt reported walked [place] over the weekend and found it was to much and still little pain over L lateral knee today vs usually medial in past. She stated also stood for 2 hrs playing instrument over the weekend and not much opportunity to sit and maybe why L knee irritated. Still haven't heard if doing MRI yet . She states compliant with HEP including band resistance with no adverse affects. PT-OP-K Range of Motion Start: 11/12/22 14:04 Freq: Status: Active Protocol: Document 11/12/22 14:05 ED (Rec: 11/12/22 14:14 ED [id number]) Knee Goniometric Range of Motion Knee Right Knee ROM WFL Yes Patient Position Supine Flexion Active (degrees) 130 Extension Active (degrees) 0 Left Knee ROM WFL Yes Patient Position Supine Flexion Active (degrees) 130 Extension Active (degrees) 0 PT-OP-L Special Tests Start: 11/12/22 14:04 Freq: Status: Active Protocol: Document 11/12/22 14:05 ED (Rec: 11/12/22 14:14 ED [id number]) Special Tests Knee Special Tests Jose Manuel Test Test Results - Varus- 0 Degrees Test Results - Valgus- 0 Degrees Test Results - PT-OP-M Strength Start: 11/12/22 14:04 Freq: Status: Active Protocol: Document 11/12/22 14:05 ED (Rec: 11/12/22 14:14 ED [id number]) Knee Strength Knee Manual Muscle Testing Right Flexion (S2) 4 Good Extension (L3) 4 Good Left Flexion (S2) 4 Good Extension (L3) 4 Good PT-OP-Q Treatments Start: 11/12/22 14:04 Freq: Status: Active Protocol: Document 12/08/22 08:19 SP (Rec: 12/08/22 09:07 SP [id number]) Cardio Equipment Recumbent Bicycle Duration (Minutes) 6 Resistance 6 Seat Position see 1 Other 52 RPM, 1.96 miles Gym Equipment Shuttle Recovery unilateral squat Details unilateral; cued for slow eccentric Resistance 50# (1 new band)- alternated LEs Reps/Time 12 reps x2 each- reports swelling pressure in L knee/ no pain Bilateral Squats Resistance 62# (1 new band) Shuttle Recovery Platform Stable Reps/Time x15 reps Therapeutic Exercises Supine Exercises ITB stretch Supine Exercise Name added to HEP Side left Equipment Used strap assist Reps/Minutes 30 x2 Comments good feedback stretch Prone Exercises quad stretch Prone Exercise Name trialed in PT Side left Equipment Used w/ strap Reps/Minutes 20 x2 Comments reported discomfort in knee so stopped Standing Exercises calf stretch Standing Exercise Name gastroc & soleus stretch Side bilateral Resistance Single LE at time Equipment Used ANDRE wedge, contact rail Reps/Minutes 2x60'' Comments good feedback stretch heel raise Standing Exercise Name Captain Peck heel raise Side bilateral Equipment Used light contact >5% finger contact rail, on floor Reps/Minutes 13reps Comments cued elongation head to ceiling assist calf concentric effort TKE Side left Resistance green (home), deep blue L4 latex in PT Reps/Minutes x20 w/5'' holds Comments cued trunk/ hips stationary only knee ext/ecc flexion Manual Therapy Treatment Soft Tissue Mobilization quad, ITB Body Location L vastus lateralis, Rec Fem Mobilization Type Cross-Friction,Instrument Assisted,Rolling Comments manual STMs and ed self use of rolling pin rolling/rocking ( seesaw) discussed can perform seated at home. Initiated ITB stretch Joint Mobilizations L patellofemorat Jt Joint L Direction med/lat/sup/inf Grade I Body Position Supine Comments painfree, resisted medial glide- potential tight ITB. L tibfib Joint L Direction AP Grade II Body Position Hooklying Comments painfree tibiofemoral Joint L Direction AP, PA- knee flexion positioning Grade II Body Position Hooklying Comments painfree PT-OP-T Assessment and Plan Start: 11/12/22 14:04 Freq: Status: Active Protocol: Document 12/08/22 08:19 SP (Rec: 12/08/22 09:07 SP [id number]) Physical Therapy Assessment Goals Four Impairment pain Short Term Goal (STG) Pt will report 25% improvement in knee pain. STG Duration 3 weeks Usp Goal (LTG) Pt will report 50% improvement in knee pain. LTG Duration 6-8 weeks Three Impairment functional mobility Short Term Goal (STG) pt will be able to perform 10 sit<>stands from 20'' surface c/o knee pain. STG Duration 3 weeks Usp Goal (LTG) Pt will be able to negotiate steps c/o knee pain. LTG Duration 6-8 weeks Two Impairment walking Short Term Goal (STG) Pt will be able to ambulate for 10 minutes c/o knee pain. STG Duration 2-3 weeks Usp Goal (LTG) Pt will be able to ambulate for 20-30 minutes c/o knee pain. LTG Duration 6-8 weeks One Impairment HEP Short Term Goal (STG) Pt will report performing HEP 3-4 days/week. STG Duration 2-3 weeks French Instructor Goal (LTG) Pt will report performing HEP 3-4 days/week. LTG Duration 6-8 weeks Assessment Summary Assessment Pt requires cues for set up and proper form with TKE, allowance gastroc then soleus stretching better response individually vs both together. Pt good response to manual and added ITB stretch end tx to decrease tension over lateral L knee reported beginning of tx. Next tx provide HO for ITB stretch if needed, declined during tx. Physical Therapy Plan Frequency and Duration Frequency of Treatment 2x/Week Duration of treatment (weeks) 10 Plan of Care Start Date 11/12/22 Plan of Care End Date 02/10/23 Therapeutic Interventions Therapeutic Interventions Balance Training,Gait Training ,Home Exercise Program,Joint Mobilizations,Manual Therapy, Neuromuscular Re-education, Orthotic/Prosthetic Management ,Patient/Caregiver Education, Self-Care/Home Management,Soft Tissue Mobilization,Taping, Therapeutic Activities, Therapeutic Exercises Modalities Biofeedback,Cold Pack/Ice Massage,Electric Stimulation, Hot Packs,Ultrasound Next Visit Focus/Plan Next Note Type Treatment Note Next Visit Plan Recheck ITB stretch, review TKE form. POC: bike, HEP review (bridge, squat), TKE, heel raise, LAQ, step up, balance
--- NOTE | 2022-12-11 15:03 | PT.OTN ---
Current Diagnoses Unilateral primary osteoarthritis, left knee (12/11/22) Unspecified internal derangement of left knee (12/11/22) Physical Therapy Treatment Note PT-OP-A Visit Information Start: 11/12/22 14:04 Freq: Status: Active Protocol: Document 12/11/22 14:59 ED (Rec: 12/11/22 15:03 ED [id number]) Out-Patient Physical Therapy Visit Information Visit Information Visit Type Treatment Note Visit Note 09/06 Visit Start Time 14:15 Visit Stop Time 15:00 Total Visit Minutes 45 Visit Number 6 Number of MEDICAL DONATION PROFESSIONAL Visits 0 PT-OP-B Current Condition Start: 11/12/22 14:04 Freq: Status: Active Protocol: Document 11/12/22 14:05 ED (Rec: 11/12/22 14:14 ED [id number]) Current Condition History of Current Condition Onset Date July Current Complaints L knee pain History of Current Condition Pt states that she was hiking in July and randomly had a painful knee. Her pain has been off and on since then; it has reduced her daily walking program that she used to do. She states she received a corticosteroid injection today , 11/12, for her knee and is scheduled for an MRI in the near future. Pt notes that she still has difficulty c/ stairs and that she is limited in her ability to walk more than a few blocks. Pain is located medially and near the joint line. She states she was given some exercises by her orthopedist and they have helped a little bit so far. PT-OP-C Subjective Start: 11/12/22 14:04 Freq: Status: Active Protocol: Document 12/11/22 14:59 ED (Rec: 12/11/22 15:03 ED [id number]) OP-PT Subjective Patient Comments Patient Comments Pt states that she has her MRI tomorrow morning and is very excited for it. She wants to know what's wrong with her knee but is unsure what the MRI will do in regards to pain management for her knee (ie surgery, injections, PT) PT-OP-K Range of Motion Start: 11/12/22 14:04 Freq: Status: Active Protocol: Document 11/12/22 14:05 ED (Rec: 11/12/22 14:14 ED [id number]) Knee Goniometric Range of Motion Knee Right Knee ROM WFL Yes Patient Position Supine Flexion Active (degrees) 130 Extension Active (degrees) 0 Left Knee ROM WFL Yes Patient Position Supine Flexion Active (degrees) 130 Extension Active (degrees) 0 PT-OP-L Special Tests Start: 11/12/22 14:04 Freq: Status: Active Protocol: Document 11/12/22 14:05 ED (Rec: 11/12/22 14:14 ED [id number]) Special Tests Knee Special Tests Jose Manuel Test Test Results - Varus- 0 Degrees Test Results - Valgus- 0 Degrees Test Results - PT-OP-M Strength Start: 11/12/22 14:04 Freq: Status: Active Protocol: Document 11/12/22 14:05 ED (Rec: 11/12/22 14:14 ED [id number]) Knee Strength Knee Manual Muscle Testing Right Flexion (S2) 4 Good Extension (L3) 4 Good Left Flexion (S2) 4 Good Extension (L3) 4 Good PT-OP-Q Treatments Start: 11/12/22 14:04 Freq: Status: Active Protocol: Document 12/11/22 14:59 ED (Rec: 12/11/22 15:03 ED [id number]) Cardio Equipment Recumbent Bicycle Duration (Minutes) 6 Resistance 6 Seat Position see 1 Other 52 RPM, 1.96 miles Treadmill Duration (Minutes) 5 Speed 2.0 Incline 1 Therapeutic Exercises Supine Exercises leg press Supine Exercise Name leg press Resistance 50# Reps/Minutes 2x8-12/leg Comments unilateral; cued for slow eccentric bridge Supine Exercise Name bridge variations Reps/Minutes 3x15 Sitting Exercises LAQ Sitting Exercise Name knee extension machine Side bilateral Resistance 2 Reps/Minutes 2x15 Standing Exercises calf stretch Standing Exercise Name gastroc & soleus stretch Side bilateral Resistance Single LE at time Equipment Used ANDRE wedge, contact rail Reps/Minutes 2x60'' Comments good feedback stretch heel raise Standing Exercise Name ewa Peck heel raise Side bilateral Equipment Used contact rail Reps/Minutes 2x15 Neuro Re-Education Treatment Balance Activities SL balance Details static SL balance Reps/Duration 2x1' holds Comments no UE support PT-OP-T Assessment and Plan Start: 11/12/22 14:04 Freq: Status: Active Protocol: Document 12/11/22 14:59 ED (Rec: 12/11/22 15:03 ED [id number]) Physical Therapy Assessment Goals Four Impairment pain Short Term Goal (STG) Pt will report 25% improvement in knee pain. STG Duration 3 weeks Halfway Goal (LTG) Pt will report 50% improvement in knee pain. LTG Duration 6-8 weeks Three Impairment functional mobility Short Term Goal (STG) pt will be able to perform 10 sit<>stands from 20'' surface c/o knee pain. STG Duration 3 weeks Halfway Goal (LTG) Pt will be able to negotiate steps c/o knee pain. LTG Duration 6-8 weeks Two Impairment walking Short Term Goal (STG) Pt will be able to ambulate for 10 minutes c/o knee pain. STG Duration 2-3 weeks Clinical Laboratory Director Goal (LTG) Pt will be able to ambulate for 20-30 minutes c/o knee pain. LTG Duration 6-8 weeks One Impairment HEP Short Term Goal (STG) Pt will report performing HEP 3-4 days/week. STG Duration 2-3 weeks Halfway Goal (LTG) Pt will report performing HEP 3-4 days/week. LTG Duration 6-8 weeks Physical Therapy Plan Frequency and Duration Frequency of Treatment 2x/Week Duration of treatment (weeks) 10 Plan of Care Start Date 11/12/22 Plan of Care End Date 02/10/23 Next Visit Focus/Plan Next Note Type Treatment Note Next Visit Plan bike, HEP review (bridge, squat), TKE, heel raise, leg press, LAQ, step up, balance
--- NOTE | 2022-12-16 09:45 | PT.OTN ---
Current Diagnoses Unilateral primary osteoarthritis, left knee (12/16/22) Unspecified internal derangement of left knee (12/16/22) Physical Therapy Treatment Note PT-OP-A Visit Information Start: 11/12/22 14:04 Freq: Status: Active Protocol: Document 12/16/22 09:05 SP (Rec: 12/16/22 09:58 SP [id number]) Out-Patient Physical Therapy Visit Information Visit Information Visit Type Treatment Note Visit Note 10/06 Visit Start Time 09:05 Visit Stop Time 09:45 Total Visit Minutes 40 Visit Number 7 Number of CHAIR MAKER Visits 1 Evaluation Information Evaluation Date 11/12/22 PT-OP-B Current Condition Start: 11/12/22 14:04 Freq: Status: Active Protocol: Document 11/12/22 14:05 ED (Rec: 11/12/22 14:14 ED [id number]) Current Condition History of Current Condition Onset Date July Current Complaints L knee pain History of Current Condition Pt states that she was hiking in July and randomly had a painful knee. Her pain has been off and on since then; it has reduced her daily walking program that she used to do. She states she received a corticosteroid injection today , 11/12, for her knee and is scheduled for an MRI in the near future. Pt notes that she still has difficulty c/ stairs and that she is limited in her ability to walk more than a few blocks. Pain is located medially and near the joint line. She states she was given some exercises by her orthopedist and they have helped a little bit so far. PT-OP-C Subjective Start: 11/12/22 14:04 Freq: Status: Active Protocol: Document 12/16/22 09:05 SP (Rec: 12/16/22 09:58 SP [id number]) OP-PT Subjective Patient Comments Patient Comments Pt reports got MRI results and found there is a tear in her meniscus. She has an orthopedic appt on 01/07, she is out of town week before. She thinks the shot in L knee last month still helping at a dull ache but doesn't want to experience forever. PT-OP-K Range of Motion Start: 11/12/22 14:04 Freq: Status: Active Protocol: Document 11/12/22 14:05 ED (Rec: 11/12/22 14:14 ED [id number]) Knee Goniometric Range of Motion Knee Right Knee ROM WFL Yes Patient Position Supine Flexion Active (degrees) 130 Extension Active (degrees) 0 Left Knee ROM WFL Yes Patient Position Supine Flexion Active (degrees) 130 Extension Active (degrees) 0 PT-OP-L Special Tests Start: 11/12/22 14:04 Freq: Status: Active Protocol: Document 11/12/22 14:05 ED (Rec: 11/12/22 14:14 ED [id number]) Special Tests Knee Special Tests Jose Manuel Test Test Results - Varus- 0 Degrees Test Results - Valgus- 0 Degrees Test Results - PT-OP-M Strength Start: 11/12/22 14:04 Freq: Status: Active Protocol: Document 11/12/22 14:05 ED (Rec: 11/12/22 14:14 ED [id number]) Knee Strength Knee Manual Muscle Testing Right Flexion (S2) 4 Good Extension (L3) 4 Good Left Flexion (S2) 4 Good Extension (L3) 4 Good PT-OP-Q Treatments Start: 11/12/22 14:04 Freq: Status: Active Protocol: Document 12/16/22 09:05 SP (Rec: 12/16/22 09:58 SP [id number]) Cardio Equipment Recumbent Bicycle Duration (Minutes) 6 Resistance 6 Seat Position see 1 Other 52 RPM, 1.96 miles Treadmill Duration (Minutes) 5 Speed 2.0 4 min> 1.0 cool down 1 min Incline 1 Other use 1 rail> no HR, cues heel toe/ heel clearance Therapeutic Exercises Supine Exercises leg press Supine Exercise Name leg press Resistance 50# (1 new band) Reps/Minutes 2x12/ each leg Comments unilateral; good slow eccentric bridge Supine Exercise Name bridge variations Reps/Minutes 3x15 total Comments feet more away w/ reported HS recruitment, muscle tiring, pnfree Sitting Exercises STS Sitting Exercise Name goal update Resistance arms across chest Equipment Used mesh chair 18 + pillow= 20 Reps/Minutes 9 reps in 30 painfree Comments muscle tiring reported, painfree LAQ Sitting Exercise Name knee extension machine (back rest see 5 holes) Side bilateral Resistance 2 Reps/Minutes 2x15 Comments cued ankle neutral DF- reported muscle weakness challenge/pnfree Standing Exercises calf stretch Standing Exercise Name gastroc & soleus stretch Side bilateral Resistance Single LE at time Equipment Used bottom step, contact rail Reps/Minutes 2x60'' Comments good feedback stretch heel raise Standing Exercise Name Captain Peck heel raise Side bilateral Resistance light rail contact Equipment Used 1. Bilateral off bottom step 2 . SL: floor Reps/Minutes B x10, SL 2x12 Comments good feedback calf tiring, little more UE support last 2 reps PT-OP-T Assessment and Plan Start: 11/12/22 14:04 Freq: Status: Active Protocol: Document 12/16/22 09:05 SP (Rec: 12/16/22 09:58 SP [id number]) Physical Therapy Assessment Goals Four Impairment pain Short Term Goal (STG) Pt will report 25% improvement in knee pain. STG Duration 3 weeks Custodial Goal (LTG) Pt will report 50% improvement in knee pain. LTG Duration 6-8 weeks Three Impairment functional mobility Short Term Goal (STG) pt will be able to perform 10 sit<>stands from 20'' surface c/o knee pain. 12/16/22: progressin reps in 30 with minimal normal 3/ 10 pain in L knee anteromedial area with little click anterolateral tib anterior. STG Duration 3 weeks progressing Channeling Machine Operator Goal (LTG) Pt will be able to negotiate steps c/o knee pain. 12/16/22: prgressing feels pressure over anterior L knee descending. LTG Duration 6-8 weeks progressing 12/16/22 Two Impairment walking Short Term Goal (STG) Pt will be able to ambulate for 10 minutes c/o knee pain. STG Duration 2-3 weeks Channeling Machine Operator Goal (LTG) Pt will be able to ambulate for 20-30 minutes c/o knee pain. LTG Duration 6-8 weeks One Impairment HEP Short Term Goal (STG) Pt will report performing HEP 3-4 days/week. STG Duration 2-3 weeks Channeling Machine Operator Goal (LTG) Pt will report performing HEP 3-4 days/week. LTG Duration 6-8 weeks Assessment Summary Assessment Pt requries cues for ankle alignment during LAQ, good quad tiring during ther ex. Reports continues to experience dull 3/10 L knee pain during descending stairs. Physical Therapy Plan Frequency and Duration Frequency of Treatment 2x/Week Duration of treatment (weeks) 10 Plan of Care Start Date 11/12/22 Plan of Care End Date 02/10/23 Therapeutic Interventions Therapeutic Interventions Balance Training,Gait Training ,Home Exercise Program,Joint Mobilizations,Manual Therapy, Neuromuscular Re-education, Orthotic/Prosthetic Management ,Patient/Caregiver Education, Self-Care/Home Management,Soft Tissue Mobilization,Taping, Therapeutic Activities, Therapeutic Exercises Modalities Biofeedback,Cold Pack/Ice Massage,Electric Stimulation, Hot Packs,Ultrasound Next Visit Focus/Plan Next Note Type Treatment Note Next Visit Plan 1 more appt scheduled, declined adding more until sees orthopedic 01/07. POC: bike, HEP review (bridge, squat), TKE, heel raise, leg press, LAQ, step up, balance
--- NOTE | 2022-12-18 15:00 | PT.OTN ---
Current Diagnoses Unilateral primary osteoarthritis, left knee (12/18/22) Unspecified internal derangement of left knee (12/18/22) Physical Therapy Treatment Note PT-OP-A Visit Information Start: 11/12/22 14:04 Freq: Status: Active Protocol: Document 12/18/22 14:53 ED (Rec: 12/18/22 15:00 ED [id number]) Out-Patient Physical Therapy Visit Information Visit Information Visit Type Treatment Note Visit Note 11/06 Visit Start Time 14:15 Visit Stop Time 14:55 Total Visit Minutes 40 Visit Number 8 Number of BOAT LABORER Visits 0 PT-OP-B Current Condition Start: 11/12/22 14:04 Freq: Status: Active Protocol: Document 11/12/22 14:05 ED (Rec: 11/12/22 14:14 ED [id number]) Current Condition History of Current Condition Onset Date July Current Complaints L knee pain History of Current Condition Pt states that she was hiking in July and randomly had a painful knee. Her pain has been off and on since then; it has reduced her daily walking program that she used to do. She states she received a corticosteroid injection today , 11/12, for her knee and is scheduled for an MRI in the near future. Pt notes that she still has difficulty c/ stairs and that she is limited in her ability to walk more than a few blocks. Pain is located medially and near the joint line. She states she was given some exercises by her orthopedist and they have helped a little bit so far. PT-OP-C Subjective Start: 11/12/22 14:04 Freq: Status: Active Protocol: Document 12/18/22 14:53 ED (Rec: 12/18/22 15:00 ED [id number]) OP-PT Subjective Patient Comments Patient Comments Pt states that she will go to the orthopedist on 01/07 to determine what to do moving forward. States her knee primarily only is irritated when descending stairs and then occasionally depending on her position. Otherwise it is feeling better. Patient Questionnaires Lower Extremity Functional Scale LEFS Score 64 / 80 LEFS Impairment 1 to 19% Impaired (Score 63-79 ) PT-OP-K Range of Motion Start: 11/12/22 14:04 Freq: Status: Active Protocol: Document 11/12/22 14:05 ED (Rec: 08/16/23 14:14 ED [id number]) Knee Goniometric Range of Motion Knee Right Knee ROM WFL Yes Patient Position Supine Flexion Active (degrees) 130 Extension Active (degrees) 0 Left Knee ROM WFL Yes Patient Position Supine Flexion Active (degrees) 130 Extension Active (degrees) 0 PT-OP-L Special Tests Start: 11/12/22 14:04 Freq: Status: Active Protocol: Document 11/12/22 14:05 ED (Rec: 11/12/22 14:14 ED [id number]) Special Tests Knee Special Tests Jose Manuel Test Test Results - Varus- 0 Degrees Test Results - Valgus- 0 Degrees Test Results - PT-OP-M Strength Start: 11/12/22 14:04 Freq: Status: Active Protocol: Document 11/12/22 14:05 ED (Rec: 11/12/22 14:14 ED [id number]) Knee Strength Knee Manual Muscle Testing Right Flexion (S2) 4 Good Extension (L3) 4 Good Left Flexion (S2) 4 Good Extension (L3) 4 Good PT-OP-Q Treatments Start: 11/12/22 14:04 Freq: Status: Active Protocol: Document 12/18/22 14:53 ED (Rec: 12/18/22 15:00 ED [id number]) Cardio Equipment Recumbent Bicycle Duration (Minutes) 6 Resistance 6 Therapeutic Exercises Supine Exercises leg press Supine Exercise Name leg press Resistance 50# Reps/Minutes 2x12/ each leg bridge Supine Exercise Name bridge variations Reps/Minutes 3x15 total Comments feet more away w/ reported HS recruitment, muscle tiring, pnfree Sitting Exercises LAQ Sitting Exercise Name knee extension machine Side bilateral Resistance 2 Reps/Minutes 2x15 Comments 2 up 1 down Standing Exercises calf stretch Standing Exercise Name gastroc & soleus stretch Side bilateral Resistance Single LE at time Equipment Used ANDRE wedge, contact rail Reps/Minutes 2x60'' Comments good feedback stretch Therapeutic Activity Therapeutic Activity squat Name STS Reps/Minutes 2x15 Comments 10# ball elevated table height PT-OP-T Assessment and Plan Start: 11/12/22 14:04 Freq: Status: Active Protocol: Document 12/18/22 14:53 ED (Rec: 12/18/22 15:00 ED [id number]) Physical Therapy Assessment Goals Four Impairment pain Short Term Goal (STG) Pt will report 25% improvement in knee pain. STG Duration 3 weeks Pipe Stripper Goal (LTG) Pt will report 50% improvement in knee pain. LTG Duration 6-8 weeks Three Impairment functional mobility Short Term Goal (STG) pt will be able to perform 10 sit<>stands from 20'' surface c/o knee pain. 12/16/22: progressin reps in 30 with minimal normal 3/ 10 pain in L knee anteromedial area with little click anterolateral tib anterior. STG Duration 3 weeks -MET Pipe Stripper Goal (LTG) Pt will be able to negotiate steps c/o knee pain. 12/16/22: prgressing feels pressure over anterior L knee descending. LTG Duration 6-8 weeks progressing 12/16/22 Two Impairment walking Short Term Goal (STG) Pt will be able to ambulate for 10 minutes c/o knee pain. STG Duration 2-3 weeks Pipe Stripper Goal (LTG) Pt will be able to ambulate for 20-30 minutes c/o knee pain. LTG Duration 6-8 weeks One Impairment HEP Short Term Goal (STG) Pt will report performing HEP 3-4 days/week. STG Duration 2-3 weeks Pipe Stripper Goal (LTG) Pt will report performing HEP 3-4 days/week. LTG Duration 6-8 weeks Assessment Summary Assessment Pt able to perform all movements today c/o knee irritation which included bridges, stationary biking, knee extensions, and squats. Pt overall having minimal symptoms but she is continuing to speak with orthopedist after having an MRI. Pt stated she would call after 01/07 ortho appointment if she would like to schedule additional PT. Physical Therapy Plan Frequency and Duration Frequency of Treatment 2x/Week Duration of treatment (weeks) 10 Plan of Care Start Date 11/12/22 Plan of Care End Date 02/10/23 Next Visit Focus/Plan Next Note Type Treatment Note Next Visit Plan POC: bike, HEP review (bridge, squat), TKE, heel raise, leg press, LAQ, step up, balance
--- NOTE | 2023-01-13 10:12 | PT.OPDS ---
Current Diagnoses Unilateral primary osteoarthritis, left knee (12/18/22) Unspecified internal derangement of left knee (12/18/22) Visit Care Team Role Provider Type NILESH Castillo Primary Care Provider Advanced Slot Ambassador Specialty: [facility] Address: [address], [place], [address] Email: [email or web address] NILESH Grewal Family Provider Advanced Slot Ambassador Specialty: [facility] Practice Address: [address] [place], [address] Email: Saeed Field DO Attending Provider Non-Staff Referring Provider Specialty: Orthopedic Surgery Address: [address] [place], [address] Email: Visit Number Visit Number 8 Discharge Summary PT-OP-B Current Condition Start: 11/12/22 14:04 Freq: Status: Active Protocol: Document 11/12/22 14:05 ED (Rec: 11/12/22 14:14 ED [id number]) Current Condition History of Current Condition Onset Date July Current Complaints L knee pain History of Current Condition Pt states that she was hiking in July and randomly had a painful knee. Her pain has been off and on since then; it has reduced her daily walking program that she used to do. She states she received a corticosteroid injection today , 11/12, for her knee and is scheduled for an MRI in the near future. Pt notes that she still has difficulty c/ stairs and that she is limited in her ability to walk more than a few blocks. Pain is located medially and near the joint line. She states she was given some exercises by her orthopedist and they have helped a little bit so far. PT-OP-C Subjective Start: 11/12/22 14:04 Freq: Status: Active Protocol: Document 12/18/22 14:53 ED (Rec: 12/18/22 15:00 ED [id number]) OP-PT Subjective Patient Comments Patient Comments Pt states that she will go to the orthopedist on 01/07 to determine what to do moving forward. States her knee primarily only is irritated when descending stairs and then occasionally depending on her position. Otherwise it is feeling better. Patient Questionnaires Lower Extremity Functional Scale LEFS Score 64 / 80 LEFS Impairment 1 to 19% Impaired (Score 63-79 ) PT-OP-K Range of Motion Start: 11/12/22 14:04 Freq: Status: Active Protocol: Document 11/12/22 14:05 ED (Rec: 11/12/22 14:14 ED [id number]) Knee Goniometric Range of Motion Knee Right Knee ROM WFL Yes Patient Position Supine Flexion Active (degrees) 130 Extension Active (degrees) 0 Left Knee ROM WFL Yes Patient Position Supine Flexion Active (degrees) 130 Extension Active (degrees) 0 PT-OP-L Special Tests Start: 11/12/22 14:04 Freq: Status: Active Protocol: Document 11/12/22 14:05 ED (Rec: 11/12/22 14:14 ED [id number]) Special Tests Knee Special Tests Jose Manuel Test Test Results - Varus- 0 Degrees Test Results - Valgus- 0 Degrees Test Results - PT-OP-M Strength Start: 11/12/22 14:04 Freq: Status: Active Protocol: Document 11/12/22 14:05 ED (Rec: 11/12/22 14:14 ED [id number]) Knee Strength Knee Manual Muscle Testing Right Flexion (S2) 4 Good Extension (L3) 4 Good Left Flexion (S2) 4 Good Extension (L3) 4 Good PT-OP-T Assessment and Plan Start: 11/12/22 14:04 Freq: Status: Active Protocol: Document 01/13/23 10:11 ED (Rec: 01/13/23 10:12 ED [id number]) Physical Therapy Assessment Goals Four Impairment pain Short Term Goal (STG) Pt will report 25% improvement in knee pain. STG Duration 3 weeks Lab Engineer Goal (LTG) Pt will report 50% improvement in knee pain. LTG Duration 6-8 weeks Three Impairment functional mobility Short Term Goal (STG) pt will be able to perform 10 sit<>stands from 20'' surface c/o knee pain. 12/16/22: progressin reps in 30 with minimal normal 3/ 10 pain in L knee anteromedial area with little click anterolateral tib anterior. STG Duration 3 weeks -MET Correction Goal (LTG) Pt will be able to negotiate steps c/o knee pain. 12/16/22: prgressing feels pressure over anterior L knee descending. LTG Duration 6-8 weeks progressing 12/16/22 Two Impairment walking Short Term Goal (STG) Pt will be able to ambulate for 10 minutes c/o knee pain. STG Duration 2-3 weeks Correction Goal (LTG) Pt will be able to ambulate for 20-30 minutes c/o knee pain. LTG Duration 6-8 weeks One Impairment HEP Short Term Goal (STG) Pt will report performing HEP 3-4 days/week. STG Duration 2-3 weeks Correction Goal (LTG) Pt will report performing HEP 3-4 days/week. LTG Duration 6-8 weeks Assessment Summary Assessment Pt has not had a visit since . At the last visit, she stated she wanted to see an orthopedist and determine what to do regarding her knee pain . Pt was largely able to go through full ROM and perform wide variety of movements with minimal knee pain. Pt did report knee pain with prolonged walking and when descending stairs but otherwise had good functional mobility. PT spoke briefly with patient over the phone and she wished to be DC'd from PT. Physical Therapy Plan Discharge Physical Therapy Discharge Reasons No Longer Attending PT
== END 2023-01-15 10:48 | disposition home or self-care (01) ==
LOC: PHYS 14:15
PROVIDERS: Family Provider Nurse Practitioner Family; PCP Internal Medicine; Referring Provider Orthopaedic Surgery; Visit Provider Orthopaedic Surgery
DX: M17.12 Unilateral primary osteoarthritis, left knee (principal); M23.92 Unspecified internal derangement of left knee
CPT/HCPCS: 97110; 97112; 97140; 97161; 97530

== ENCOUNTER → 2023-06-04 08:08 | Outpatient (CLI) | payer OTHER, SELFPAY ==
--- NOTE | 2023-06-04 08:09 | DI.MG.S_ITS ---
BILATERAL DIGITAL SCREENING MAMMOGRAM 3D/2D WITH CAD: 06/04/2023 CLINICAL: Routine screening. Comparison is made to exams dated: 06/03/2022 mammogram, 06/01/2021 mammogram, 04/25/2020 mammogram, 03/26/2019 mammogram, and 03/16/2017 mammogram - [facility]. There are scattered areas of fibroglandular density in both breasts (category b / 25%-50% glandular tissue). Current study was also evaluated with a Computer Aided Detection (CAD) system. No significant masses, calcifications, or other findings are seen in either breast. There has been no significant interval change. IMPRESSION: NEGATIVE There is no mammographic evidence of malignancy. A 1 year screening mammogram is recommended. Based on the Tyrer Cuzick model (a risk assessment model) the patient's lifetime risk is 3.4% and her 10 year risk is 0.0%. According to the ACR, ACS, and NCCN guidelines, an annual breast MRI exam along with mammogram is recommended if the patient's lifetime risk is 20% or greater. This exam was interpreted at Station ID: [id number]. NOTE: For mammograms, a report in lay terms will be sent to the patient. Approximately 15% of breast malignancies will not be visualized mammographically. In the management of a palpable breast mass, a negative mammogram must not discourage biopsy of a clinically suspicious lesion. Electronically Signed By: Amado aranda/parish:06/04/2023 10:00:29 letter sent: Normal Exam ACR BI-RADS Category 1: Negative [id number]
== END ==
LOC: MAMMO 08:08
PROVIDERS: Family Provider Nurse Practitioner Family; PCP Internal Medicine; Referring Provider Internal Medicine; Visit Provider Internal Medicine
DX: Z12.31 Encounter for screening mammogram for malignant neoplasm of breast (principal); R92.323 Mammographic fibroglandular density, bilateral breasts
CPT/HCPCS: 77063; 77067

== ENCOUNTER → 2023-09-18 08:55 | Outpatient (CLI) | payer OTHER, SELFPAY ==
--- NOTE | 2023-09-18 | DI.RAD.S_ITS ---
PROCEDURE: XR CHEST 2V INDICATIONS: chronic cough TECHNIQUE: 2 views of the chest were acquired. COMPARISON: [facility], CR, XR CHEST 2V, 05/15/2020, 10:10. FINDINGS: Surgical changes and devices: None. Lungs and pleura: Mild biapical scarring. Chronic interstitial prominence. No focal consolidation. No pleural effusions or pneumothorax. Mediastinum: Mediastinal contours are normal. Heart size is normal. Bones and chest wall: No suspicious bony abnormalities. Soft tissues appear unremarkable. IMPRESSION: 1. No acute cardiopulmonary abnormality is seen. 2. Chronic interstitial prominence. Consider high-resolution chest CT if clinically indicated. Dictated by: Kathy Lopez M.D. on 09/18/2023 at 10:31 Approved by: Kathy Lopez M.D. on 09/18/2023 at 10:31
== END ==
PROVIDERS: Family Provider Nurse Practitioner Family; PCP Internal Medicine; Referring Provider Internal Medicine; Visit Provider Internal Medicine
DX: R05.3 Chronic cough (principal)
CPT/HCPCS: 71046

== ENCOUNTER → 2023-09-25 14:10 | Outpatient (CLI) | payer OTHER, SELFPAY ==
--- NOTE | 2023-09-25 | DI.CT.S_ITS ---
PROCEDURE: CT CHEST HIGH RESOLUTION INDICATIONS: CHRONIC COUGH, ABNORMAL CHEST XR TECHNIQUE: Noncontrast 1.0 and 5.0 mm thick contiguous axial sections from the pulmonary apex to the posterior costophrenic angles, with 7 mm thick coronal and sagittal MIP reformats. 1 mm thick dynamic expiratory images acquired through the upper, mid, and lower lungs. 1.0 mm thick axial sections acquired from the elizabeth to the posterior costophrenic angles in the prone end-inspiration position. For radiation dose reduction, the following was used: automated exposure control, adjustment of mA and/or kV according to patient size. COMPARISON: [facility], , XR CHEST 2V, 09/18/2023, 8:56. FINDINGS: Image quality: Diagnostic. Lower Neck: No enlarged lymph nodes. Thyroid: No thyroid nodules which require sonographic follow up, per consensus guidelines. Axillae: No enlarged lymph nodes. Chest Wall: Unremarkable. Bones: No suspicious osseous lesion. Lungs and Pleura: No pneumothorax or pleural effusions. No consolidation or suspicious nodules. A few calcified granuloma. Mild peripheral reticular thickening which persists on the prone sequence. No honeycombing. No air trapping. No bronchiectasis. The central airways are clear. Heart: Heart size is normal. Moderate coronary artery calcifications. No pericardial effusion. Thoracic Vessels: The aorta and pulmonary arteries demonstrate normal size. Mediastinum and Anahi: No enlarged lymph nodes. Esophagus: No wall thickening. No hiatal hernia. Upper Abdomen: Probable cyst in the right lobe of the liver partially visualized. Previously seen in 2020. Small cyst in the left lobe of the liver. No adrenal nodule. IMPRESSION: Mild peripheral reticular thickening. This is consistent with a nonspecific interstitial lung disease. No acute airspace opacity. No significant pulmonary nodules. Dictated by: Mir Wright M.D. on 09/25/2023 at 21:40 Approved by: Mir Wright M.D. on 09/25/2023 at 21:46
== END ==
PROVIDERS: Family Provider Nurse Practitioner Family; PCP Internal Medicine; Referring Provider Internal Medicine; Visit Provider Internal Medicine
DX: I25.10 Atherosclerotic heart disease of native coronary artery without angina pectoris (principal); R05.3 Chronic cough; R93.89 Abnormal findings on diagnostic imaging of other specified body structures; K76.89 Other specified diseases of liver
CPT/HCPCS: 71250

== ENCOUNTER → 2023-11-02 07:59 | Outpatient (CLI) | payer OTHER, SELFPAY ==
--- NOTE | 2023-11-02 08:00 | DI.ECHO.S_ITS ---
[place] [facility]---------+ [facility] : : [address] : [place] : : [id number] : : Phone: [phone] Echocardiogram Report + + :Name: DES MARCOS Study Date: 11/02/2023 Height: 62 in : :[facility] ReadingLocation: Weight: 150 lb : : Gender: Female BSA: 1.7 m2 : :: 1945 Age: 78 yrs BP: 134/82 mmHg: :Reason For Study: MITRAL VALVE PROLAPSE : :Ordering Physician: RADHA, : :YANA Performed By: Selvin Sr : :Referring: YANA GARCIA : + + Interpretation Summary Left ventricular ejection fraction is estimated to be 45 +/- 5%. Grade II diastolic dysfunction. The right ventricular systolic function is normal. The right ventricular systolic pressure is estimated to be at least 33 mmHg based on an estimated right atrial pressure of 3 mm Hg. The left atrium is severely dilated. There is moderate to severe mitral regurgitation. 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 Procedure: A two-dimensional transthoracic echocardiogram with color flow and Doppler was performed. The study quality was technically adequate. Comparison is made with the echocardiogram of 03/08/2014. The patient was in sinus rhythm with heart rates between 53-65 bpm during the exam. Left Ventricle: The left ventricle is normal in size and wall thickness. Left ventricular ejection fraction is estimated to be 45 +/- 5%. There are no obvious focal wall motion abnormalities noted but poor endocardial definition reduces the sensitivity for the detection of such. Grade II diastolic dysfunction. Right Ventricle: The right ventricle is normal size. The right ventricular systolic function is normal. Atria: The left atrium is severely dilated. The right atrium is borderline dilated. The interatrial septum grossly appears intact with no obvious evidence for an atrial septal defect. Mitral Valve: MAC. There is no mitral valve stenosis. There is moderate to severe mitral regurgitation. Aortic Valve: The aortic valve is trileaflet. There is no aortic valve stenosis. No aortic regurgitation is present. Tricuspid Valve: The tricuspid valve is not well visualized, but is grossly normal. There is no tricuspid stenosis. There is mild tricuspid regurgitation. The right ventricular systolic pressure is estimated to be at least 33 mmHg based on an estimated right atrial pressure of 3 mm Hg. Pulmonic Valve: The pulmonic valve is not well seen, but is grossly normal. There is no pulmonic valvular stenosis. There is trace pulmonic regurgitation. Great Vessels: The aortic root is normal size. The dimensions of the ascending aorta are normal. The IVC is of normal diameter and collapses greater than 50% with a sniff. This suggests a low right atrial pressure of 3 mm Hg. Pericardium/ Pleura There is no pericardial effusion. There is no pleural effusion. MMode/2D Measurements & Calculations LVIDd: 5.1 cm LVOT diam: 2.2 cm LVIDs: 3.9 cm Ao root diam: 3.3 cm FS: 23.9 % asc Aorta Diam: 3.5 cm IVSd: 0.64 cm Ao Arch Diam (Prox Trans): 2.3 cm LVPWd: 0.76 cm LV fisher. diameter/BSA (cm/m^2): 3.0 LV sys. diameter/BSA (cm/m^2): 2.3 LA A2 area: 22.2 cm2 RA long axis: 4.7 cm LA A4 area: 24.9 cm2 RA area: 17.1 cm2 LA length (vol): 6.3 cm RA vol: 52.8 ml LA vol: 75.1 ml RA : 31.2 ml/m2 LA vol index: 44.4 ml/m2 IVC diam: 1.8 cm RVD1 (basal): 3.8 cm RVD2 (mid): 3.8 cm TAPSE: 2.8 cm Doppler Measurements & Calculations Ao V2 max: 132.5 cm/sec LVOT Max Tan: 83.4 cm/sec Ao V2 mean: 105.4 cm/sec LV V1 max P.8 mmHg Ao max P.0 mmHg LV V1 VTI: 20.7 cm Ao mean P.6 mmHg STALIN(I,D): 2.4 cm2 Ao V2 VTI: 34.1 cm STALIN(V,D): 2.5 cm2 sev ratio: 0.61 STALIN indexed to BSA (cm^2/m^2): 1.4 MV E max tan: 99.6 cm/sec TR max tan: 273.9 cm/sec MV A max tan: 143.0 cm/sec TR max P.0 mmHg MV E/A: 0.70 PA V2 max: 94.6 cm/sec Med Peak E' Tan: 4.4 cm/sec PA V2 mean: 68.1 cm/sec E/E' med: 22.7 PA mean P.0 mmHg Lat Peak E' Tan: 8.9 cm/sec PA pr(Accel): 3.6 mmHg E/E' lat: 11.2 E/e' average: 17.0 MV dec time: 0.22 sec SV(LVOT): 80.8 ml Reading Physician:MANUEL
== END ==
LOC: ECHO 08:00
PROVIDERS: Family Provider Nurse Practitioner Family; PCP Internal Medicine; Referring Provider Internal Medicine; Visit Provider Internal Medicine
DX: I08.1 Rheumatic disorders of both mitral and tricuspid valves (principal)
CPT/HCPCS: 93306

== ENCOUNTER → 2023-11-05 08:11 | Outpatient (CLI) | payer OTHER, SELFPAY | PROVIDERS: Family Provider Nurse Practitioner Family; PCP Internal Medicine; Referring Provider Internal Medicine; Visit Provider Internal Medicine | DX: J84.9 Interstitial pulmonary disease, unspecified (principal); R05.3 Chronic cough | CPT/HCPCS: 94060; 94726; 94729 ==

== ENCOUNTER → 2023-11-24 08:36 | Outpatient (CLI) | payer OTHER, SELFPAY ==
[2023-11-24 10:46] LABS: C-Reactive Protein Quant < 0.5 mg/dL (<1.0)
[2023-11-24 10:56] LABS: Rheumatoid Factor < 8.6 IU/mL (<12.0)
== END ==
PROVIDERS: Family Provider Nurse Practitioner Family; PCP Internal Medicine; Referring Provider Internal Medicine Critical Care Medicine; Visit Provider Internal Medicine Critical Care Medicine
DX: J84.9 Interstitial pulmonary disease, unspecified (principal)
CPT/HCPCS: 36415; 86038; 86140; 86430

== ENCOUNTER → 2024-03-31 08:26 | Outpatient (CLI) | payer OTHER, SELFPAY | PROVIDERS: Family Provider Nurse Practitioner Family; PCP Internal Medicine; Referring Provider Internal Medicine Critical Care Medicine; Visit Provider Internal Medicine Critical Care Medicine | DX: J84.89 Other specified interstitial pulmonary diseases (principal); R94.2 Abnormal results of pulmonary function studies; R06.09 Other forms of dyspnea | CPT/HCPCS: 94060; 94726; 94729 ==

== ENCOUNTER → 2024-07-19 08:31 | Outpatient (CLI) | payer OTHER, SELFPAY ==
--- NOTE | 2024-07-19 08:32 | DI.MG.S_ITS ---
MM screening mammo BI: 07/19/2024. BI-RADS: 1 CLINICAL: 79-year old female for bilateral screening mammogram. Tyrer-Cuzick lifetime risk of 2.6%. No personal or first-degree family history of breast cancer. PRIOR EXAMS 06/04/2023, 06/03/2022, 06/01/2021, 05/15/2020, 04/25/2020, 03/26/2019, 09/03/2017, 03/16/2017, 04/13/2015, 09/27/2014. MAMMOGRAPHY TECHNIQUE: 2D and 3D (tomosynthesis) digital mammographic views obtained, with additional images as needed for full coverage. Current study was also evaluated with a Computer Aided Detection (CAD) system. DENSITY B. There are scattered areas of fibroglandular density. MAMMOGRAPHY FINDINGS Bilateral: No suspicious mass, asymmetry, microcalcification, or other abnormality seen. No significant change from comparison. IMPRESSION: * No evidence of malignancy. RECOMMENDATIONS Bilateral * Annual screening mammography. OVERALL ASSESSMENT CATEGORY BI-RADS-1: Negative. The [employer] recommends annual screening mammography beginning at age 40 for women with average risk of breast cancer. ELECTRONICALLY SIGNED: Nedra Dougherty M.D. on 07/19/2024 at 04:55:37 PM PT Interpreting Station ID: [id number]
== END ==
LOC: MAMMO 08:32
PROVIDERS: PCP Family Medicine; Referring Provider Family Medicine; Visit Provider Family Medicine
DX: Z12.31 Encounter for screening mammogram for malignant neoplasm of breast (principal)
CPT/HCPCS: 77063; 77067

== ENCOUNTER → 2025-03-07 10:19 | Outpatient (CLI) | payer OTHER, SELFPAY ==
--- NOTE | 2025-03-07 10:20 | DI.ECHO.S_ITS ---
[place] [facility]---------+ [facility] : : [address] : : [place] : : [id number] : : Phone: [phone] Echocardiogram Report + + :Name: DES MARCOS Study Date: 03/07/2025 Height: 62 in : :[facility] ReadingLocation: Weight: 150 lb : : Gender: Female BSA: 1.7 m2 : :: 1945 Age: 79 yrs BP: 132/75 mmHg: :Reason For Study: CHF : :Ordering Physician: PACHECO, : :GIO Performed By: German Echavarria : :Referring: GIO BERGMAN : + + Interpretation Summary The left ventricle is normal in size. Left ventricular ejection fraction is estimated to be 50 +/- 5%. Previously, LV EF45 +/- 5%. Slight improvement. The right ventricle is normal in size and function. Mild to moderate mitral annulus calcification, calcified mitral leaflets with slight hockey-stick appearance of TIP of the anterior mitral leaflet. No critical mitral stenosis. Moderate eccentric MR. Previously moderate to severe MR. There is mild tricuspid regurgitation. The right ventricular systolic pressure is estimated to be at least 25 mmHg based on an estimated right atrial pressure of 3 mm Hg. Previously 33 mmHg. Procedure: A two-dimensional transthoracic echocardiogram with color flow and Doppler was performed. The study quality was technically adequate. Comparison is made with the echocardiogram of 11/02/2023. The patient was in normal sinus rhythm during the exam. Left Ventricle: The left ventricle is normal in size. Left ventricular wall thickness is borderline increased. There is no thrombus. Left ventricular ejection fraction is estimated to be 50 +/- 5%. Septal motion is consistent with conduction abnormality. Grade I diastolic dysfunction with normal left atrial pressure. Right Ventricle: The right ventricle is normal in size and function. Atria: The left atrium is moderately dilated. The left atrium has mildly decreased in size since the prior echo exam. Right atrial size is normal. There is no Doppler evidence for an interatrial shunt. Mitral Valve: Mild to moderate mitral annulus calcification, calcified mitral leaflets with slight hockey-stick appearance of TIP of the anterior mitral leaflet. No critical mitral stenosis. Moderate eccentric MR. Previously moderate to severe MR. There is no mitral valve stenosis. There is moderate mitral regurgitation. The mitral regurgitant jet is eccentrically directed. BP at time of exam 132/75. Aortic Valve: The aortic valve is trileaflet. The aortic valve opens well. There is no aortic valve stenosis. No aortic regurgitation is present. Tricuspid Valve: The tricuspid valve leaflets are thickened and/or calcified, but open well. There is mild tricuspid regurgitation. The right ventricular systolic pressure is estimated to be at least 25 mmHg based on an estimated right atrial pressure of 3 mm Hg. Pulmonic Valve: The pulmonic valve is not well seen, but is grossly normal. There is trace pulmonic regurgitation. Great Vessels: The aortic root is normal size. The ascending aorta is normal in size. The aortic arch could not be visualized. The pulmonary artery is not well visualized, but is probably normal size. The IVC is of normal diameter and collapses greater than 50% with a sniff. This suggests a low right atrial pressure of 3 mm Hg. Pericardium/ Pleura There is no pericardial effusion. MMode/2D Measurements & Calculations LVIDd: 4.9 cm LVOT diam: 2.0 cm LVIDs: 3.4 cm Ao root diam: 3.3 cm FS: 31.1 % asc Aorta Diam: 3.2 cm EPSS: 1.0 cm IVSd: 1.1 cm LVPWd: 1.0 cm LV fisher. diameter/BSA (cm/m^2): 2.9 LV sys. diameter/BSA (cm/m^2): 2.0 LA A2 area: 20.0 cm2 IVC diam: 1.1 cm LA A4 area: 23.8 cm2 LA length (vol): 6.1 cm LA vol: 65.9 ml LA vol index: 39.0 ml/m2 RVD1 (basal): 2.9 cm RVD2 (mid): 2.8 cm TAPSE: 1.7 cm Doppler Measurements & Calculations Ao V2 max: 150.2 cm/sec LVOT Max Tan: 81.0 cm/sec Ao V2 mean: 112.8 cm/sec LV V1 max P.6 mmHg Ao max P.0 mmHg LV V1 VTI: 16.9 cm Ao mean P.5 mmHg STALIN(I,D): 2.0 cm2 Ao V2 VTI: 27.7 cm STALIN(V,D): 1.8 cm2 sev ratio: 0.61 STALIN indexed to BSA (cm^2/m^2): 1.2 MV E max tan: 59.9 cm/sec TR max tan: 235.8 cm/sec MV A max tan: 104.4 cm/sec TR max P.2 mmHg MV E/A: 0.57 PA V2 max: 85.5 cm/sec Med Peak E' Tan: 3.8 cm/sec PA V2 mean: 65.5 cm/sec E/E' med: 15.7 PA mean P.8 mmHg Lat Peak E' Tan: 7.0 cm/sec PA pr(Accel): 22.5 mmHg E/E' lat: 8.6 E/e' average: 12.1 MV dec time: 0.22 sec SV(LVOT): 55.3 ml Reading Physician:03:58 PM
== END ==
LOC: ECHO 10:20
PROVIDERS: PCP Family Medicine; Referring Provider Family Medicine; Visit Provider Internal Medicine Cardiovascular Disease
DX: I08.1 Rheumatic disorders of both mitral and tricuspid valves (principal); I50.20 Unspecified systolic (congestive) heart failure
CPT/HCPCS: 93306